=== PATIENT | female | born 1955 | race Caucasian/White ===

== ENCOUNTER 2018-10-04 12:16 | Inpatient (IN) | payer MEDICAID ==
[~2018-10-04] VITALS: Ht 180.3 cm; Wt 97.1 kg
[2018-10-04 12:23] VITALS: BP 154/57
[2018-10-04] MEDS ORDERED: LISI-420 PO (12:28)
[2018-10-04] MEDS ORDERED: AMLO10TA PO (12:28)
[2018-10-04] MEDS ORDERED: ASPI81CT89 PO (12:28)
[2018-10-04 13:18] LABS: BASOPHILS % (AUTO) 0.4 % (0.0-2.0); EOSINOPHILS # (AUTO) 0.1 K/uL (0-0.4); EOSINOPHILS % (AUTO) 1.2 % (0.0-4.0); HEMATOCRIT 34.1 % (36-48); LYMPHOCYTES # (AUTO) 2.3 K/uL (2.5-16.5); LYMPHOCYTES % (AUTO) 31.6 % (20.5-51.1); MEAN CORPUSCULAR HEMOGLOBIN 30 pg (27-31); MEAN CORPUSCULAR HGB CONC 32 g/dL (33-37); MEAN CORPUSCULAR VOLUME 91.7 fL (80-94); MONOCYTES # (AUTO) 0.5 K/uL (0.8-1.0); MONOCYTES % (AUTO) 6.7 % (1.7-9.3); NEUTROPHILS # (AUTO) 4.3 K/uL (1.8-7.7); NEUTROPHILS % (AUTO) 60.1 % (42.2-75.2); PLATELET COUNT (AUTO) 195 K/uL (140-450); RED BLOOD CELL COUNT(AUTO) 3.72 MIL/uL (4.20-5.40); RED CELL DISTRIBUTION WIDTH 14.2 % (11.6-13.7); WHITE BLOOD COUNT (AUTO) 7.2 K/uL (4.8-10.8)
[2018-10-04 13:25] LABS: ANION GAP 8.5 (8-16); CARBON DIOXIDE 29.4 mmol/L (21-32); CREATININE 0.9 mg/dL (0.6-1.3); POTASSIUM 4.9 mmol/L (3.5-5.1)
[2018-10-04 13:31] LABS: ALBUMIN 3.4 g/dL (3.4-5.0); TOTAL BILIRUBIN 0.3 mg/dL (0.0-1.0)
[2018-10-04 13:36] LABS: PROTHROMBIN TIME 9.9 secs (10.8-13.4)
[2018-10-04 13:38] LABS: FREE T4 (FREE THYROXINE) 1.03 ng/dL (0.76-1.46); MAGNESIUM 2.3 mg/dL (1.8-2.4)
[2018-10-04] MEDS ORDERED: ACETAMINOPHEN 325 MG TAB PO PRN (14:15)
[2018-10-04] MEDS ORDERED: ONDANSETRON 4 MG/2 ML VIAL IVP PRN (14:15)
[2018-10-04] MEDS ORDERED: DEXTROSE 50% 50 ML SYR IVP PRN (15:15)
[2018-10-04] MEDS ORDERED: INSULIN LISPRO SLIDING SCALE 100 UNITS/ML VIAL SUBQ PRN (15:15)
[2018-10-04] MEDS ORDERED: NITROGLYCERIN 0.4 MG TAB SL PRN (15:15)
[2018-10-04] MEDS ORDERED: NEOMYCIN/POLYMYXIN/BACITRACIN 0.9 GM/1 PKT TP ONE (15:26)
[2018-10-04 15:40] LABS: PHOSPHORUS 4.2 mg/dL (2.5-4.9)
[2018-10-04 15:44] LABS: BILIRUBIN,URINE NEGATIVE (NEGATIVE); BLOOD, URINE NEGATIVE (NEGATIVE); COLOR,URINE YELLOW (YELLOW); LEUKOCYTE ESTERASE ,URINE 2+ (NEGATIVE); NITRITE, URINE NEGATIVE (NEGATIVE); UGLUCOSE NEGATIVE (NEGATIVE)
[2018-10-04 15:45] LABS: APPEARANCE,URINE SLIGHTLY HAZY (CLEAR)
[2018-10-04 15:52] LABS: RBC,URINE NONE SEEN /HPF (0-5)
[2018-10-04 16:00] VITALS: BP 154/81
[2018-10-04] MEDS ORDERED: METF850T PO (16:03)
[2018-10-04] MEDS: NACL 0.9% 1,000 ML IV SCH (17:33)
[2018-10-04] MEDS: BLOOD GLUCOSE MONITORING 1 DEV DEV FS SCH ×2 (17:33→20:52)
[2018-10-04] MEDS ORDERED: metFORMIN 850 MG TAB PO SCH (18:00)
[2018-10-04 20:00] VITALS: BP 145/68
[2018-10-04] MEDS: ATORVASTATIN 20 MG TAB PO SCH (21:42)
[2018-10-04] MEDS: METOPROLOL 25 MG TAB PO SCH (21:43)
[2018-10-04 22:38] LABS: BARBITURATE, URINE NEGATIVE ng/ml (NEG <=200); BENZODIAZEPINE, URINE NEGATIVE ng/mL (NEG <=200); CANNABINOID, URINE NEGATIVE ng/mL (NEG <=50); COCAINE, URINE NEGATIVE ng/mL (NEG <=300); OPIATE, URINE NEGATIVE ng/mL (NEG <=2000); PHENCYCLIDINE SCREEN,URINE NEGATIVE ng/mL (NEG <=25)
[2018-10-05] VITALS: BP 127/60
[2018-10-05 04:00] VITALS: BP 136/70
[2018-10-05] MEDS: BLOOD GLUCOSE MONITORING 1 DEV DEV FS SCH ×4 (06:47→20:25)
[2018-10-05 08:00] VITALS: BP 144/57
[2018-10-05] MEDS: amLODIPine 5 MG TAB PO SCH (08:21)
[2018-10-05] MEDS: METOPROLOL 25 MG TAB PO SCH ×2 (08:21→20:17)
[2018-10-05] MEDS: ASPIRIN 81 MG TAB.CHEW PO SCH (08:21)
[2018-10-05] MEDS: LISINOPRIL 20 MG TAB PO SCH (08:21)
[2018-10-05] MEDS: metFORMIN 850 MG TAB PO SCH ×2 (08:34→16:34)
[2018-10-05] MEDS ORDERED: LISINOPRIL 5 MG TAB PO SCH (09:00)
[2018-10-05] MEDS ORDERED: ASPIRIN 81 MG TAB.CHEW PO SCH (09:00)
[2018-10-05] MEDS: NACL 0.9% 1,000 ML IV SCH ×2 (10:11→15:00)
[2018-10-05 12:00] VITALS: BP 146/55
[2018-10-05 12:55] LABS: BASOPHILS % (AUTO) 0.3 % (0.0-2.0); EOSINOPHILS # (AUTO) 0.1 K/uL (0-0.4); EOSINOPHILS % (AUTO) 1.6 % (0.0-4.0); HEMATOCRIT 32.8 % (36-48); HEMOGLOBIN 10.6 g/dL (12.0-16.0); LYMPHOCYTES # (AUTO) 2.3 K/uL (2.5-16.5); LYMPHOCYTES % (AUTO) 37.4 % (20.5-51.1); MEAN CORPUSCULAR HEMOGLOBIN 30 pg (27-31); MEAN CORPUSCULAR HGB CONC 33 g/dL (33-37); MEAN CORPUSCULAR VOLUME 91.8 fL (80-94); MONOCYTES # (AUTO) 0.4 K/uL (0.8-1.0); MONOCYTES % (AUTO) 6.5 % (1.7-9.3); NEUTROPHILS # (AUTO) 3.3 K/uL (1.8-7.7); NEUTROPHILS % (AUTO) 54.2 % (42.2-75.2); PLATELET COUNT (AUTO) 186 K/uL (140-450); RED BLOOD CELL COUNT(AUTO) 3.57 MIL/uL (4.20-5.40); RED CELL DISTRIBUTION WIDTH 13.9 % (11.6-13.7)
[2018-10-05 13:02] LABS: CHOL/HDL RATIO 3.5 (1-4.5)
[2018-10-05 13:09] LABS: MAGNESIUM 2.1 mg/dL (1.8-2.4); PHOSPHORUS 3.8 mg/dL (2.5-4.9)
[2018-10-05 13:11] LABS: ANION GAP 12.2 (8-16); CARBON DIOXIDE 26.4 mmol/L (21-32); CREATININE 0.8 mg/dL (0.6-1.3); POTASSIUM 4.6 mmol/L (3.5-5.1)
[2018-10-05 16:00] VITALS: BP 134/52
[2018-10-05 20:00] VITALS: BP 125/62
[2018-10-05] MEDS ORDERED: cefTRIAXone 1,000 MG VIAL ONE (20:12)
[2018-10-05] MEDS: ATORVASTATIN 20 MG TAB PO SCH (20:17)
[2018-10-06] VITALS: BP 130/50
[2018-10-06 04:00] VITALS: BP 149/56
[2018-10-06] MEDS: BLOOD GLUCOSE MONITORING 1 DEV DEV FS SCH (05:54)
[2018-10-06 07:05] LABS: BASOPHILS % (AUTO) 0.4 % (0.0-2.0); EOSINOPHILS # (AUTO) 0.2 K/uL (0-0.4); EOSINOPHILS % (AUTO) 2.4 % (0.0-4.0); HEMATOCRIT 33.8 % (36-48); HEMOGLOBIN 10.8 g/dL (12.0-16.0); LYMPHOCYTES % (AUTO) 41.4 % (20.5-51.1); MEAN CORPUSCULAR HEMOGLOBIN 29 pg (27-31); MEAN CORPUSCULAR HGB CONC 32 g/dL (33-37); MEAN CORPUSCULAR VOLUME 91.8 fL (80-94); MONOCYTES # (AUTO) 0.4 K/uL (0.8-1.0); MONOCYTES % (AUTO) 6.1 % (1.7-9.3); NEUTROPHILS # (AUTO) 3.6 K/uL (1.8-7.7); NEUTROPHILS % (AUTO) 49.7 % (42.2-75.2); PLATELET COUNT (AUTO) 195 K/uL (140-450); RED BLOOD CELL COUNT(AUTO) 3.69 MIL/uL (4.20-5.40); RED CELL DISTRIBUTION WIDTH 13.6 % (11.6-13.7); WHITE BLOOD COUNT (AUTO) 7.2 K/uL (4.8-10.8)
[2018-10-06 07:13] LABS: ANION GAP 10.9 (8-16); CARBON DIOXIDE 26.9 mmol/L (21-32); CREATININE 0.8 mg/dL (0.6-1.3); POTASSIUM 4.8 mmol/L (3.5-5.1)
[2018-10-06 07:20] LABS: MAGNESIUM 2.1 mg/dL (1.8-2.4); PHOSPHORUS 3.5 mg/dL (2.5-4.9)
[2018-10-06 08:00] VITALS: BP 125/64
[2018-10-06] MEDS: METOPROLOL 25 MG TAB PO SCH (09:08)
[2018-10-06] MEDS: amLODIPine 5 MG TAB PO SCH (09:08)
[2018-10-06] MEDS: metFORMIN 850 MG TAB PO SCH (09:08)
[2018-10-06] MEDS: LISINOPRIL 20 MG TAB PO SCH (09:08)
[2018-10-06] MEDS: ASPIRIN 81 MG TAB.CHEW PO SCH (09:09)
[2018-10-06] MEDS: NACL 0.9% 1,000 ML IV SCH (10:45)
== END 2018-10-06 11:50 | disposition home or self-care (01) | DRG 198 ==
LOC: MED 12:16 → MTU 14:19
PROVIDERS: ADMIT General Practice; ATTEND General Practice
DX: I20.0 Unstable angina (principal); N17.0 Acute kidney failure with tubular necrosis; E11.40 Type 2 diabetes mellitus with diabetic neuropathy, unspecified; E11.65 Type 2 diabetes mellitus with hyperglycemia; S52.502A Unspecified fracture of the lower end of left radius, initial encounter for closed fracture; D64.9 Anemia, unspecified; I27.21 Secondary pulmonary arterial hypertension; I07.1 Rheumatic tricuspid insufficiency; I11.9 Hypertensive heart disease without heart failure; S52.612A Displaced fracture of left ulna styloid process, initial encounter for closed fracture; E78.5 Hyperlipidemia, unspecified; W18.39XA Other fall on same level, initial encounter; Z87.01 Personal history of pneumonia (recurrent); Z79.82 Long term (current) use of aspirin; Z79.899 Other long term (current) drug therapy; Z90.49 Acquired absence of other specified parts of digestive tract; Z98.891 History of uterine scar from previous surgery; Z79.84 Long term (current) use of oral hypoglycemic drugs; Z82.49 Family history of ischemic heart disease and other diseases of the circulatory system; Y93.89 Activity, other specified; Y92.89 Other specified places as the place of occurrence of the external cause; Y99.8 Other external cause status
CPT/HCPCS: 36415; 71045; 73060; 73090; 80048; 80053; 80305; 81001; 82150; 82948; 83036; 83605; 83690; 83735; 83880; 84100; 84439; 84443; 84479; 84484; 85025; 85379; 85610; 85730; 87081; 87086; 93005; 93925; 93970; J0696; J1644; J1815; J7030; J7060; Q0092

== ENCOUNTER 2019-02-18 13:04 | Emergency (ER) | payer MEDICAID ==
[~2019-02-18] VITALS: Ht 165.1 cm; Wt 99.3 kg
[~2019-02-18 13:04] MED LIST: AMLO10TA PO; ASPI-1718 PO; LISI-420 PO; METF850T PO
[2019-02-18 13:10] VITALS: BP 167/69
--- NOTE | 2019-02-18 14:22 | NUR ---
Patient ambulated to chair E with family. RN evaluating patient.
--- NOTE | 2019-02-18 14:30 | NUR ---
PATIENT IS A 63 Y/O FEMALE WHO PRESENTS TO THE ED C/O COUGH. PT STATES THAT IT STARTED YESTERDAY. PT TOOK TYLENOL AT 0400 TODAY. PT REPORTS 10/10 ACHING CHEST WALL PAIN WITH COUGH. PT DENIES CP, SOB, N/V/D. PT AWAKE AND ALERT, RR EVEN/UNLABORED. PT REPOSITIONED FOR COMFORT, BED IN LOWEST POSITION. ER PROVIDER NOTIFIED. WILL CONTINUE TO MONITOR. PMH--DM, L WRIST INJURY NKA
[2019-02-18] MEDS ORDERED: KETOROLAC 30 MG/ML VIAL IM ONE (15:10)
[2019-02-18 15:28] VITALS: BP 172/72
--- NOTE | 2019-02-18 15:28 | NUR ---
Patient discharged with v/s stable. Written and verbal after care instructions given and explained. Patient alert, oriented and verbalized understanding of instructions. Ambulatory with steady gait. All questions addressed prior to discharge. ID band removed. Patient advised to follow up with PMD. Rx of FLONASE 50MCG AND DIABETIC TUSSIN DM given. Patient educated on indication of medication including possible reaction and side effects. Opportunity to ask questions provided and answered.
== END 2019-02-18 15:28 | disposition home or self-care (01) ==
LOC: MED 13:04
DX: J06.9 Acute upper respiratory infection, unspecified (principal); R94.31 Abnormal electrocardiogram [ECG] [EKG]; E11.9 Type 2 diabetes mellitus without complications; I10 Essential (primary) hypertension; Z79.82 Long term (current) use of aspirin; Z79.84 Long term (current) use of oral hypoglycemic drugs; Z79.899 Other long term (current) drug therapy
CPT/HCPCS: 93005; 96372; 99283; J1885

== ENCOUNTER 2020-01-24 20:53 | Inpatient (IN) | payer MEDICAID, SELFPAY ==
[~2020-01-24] VITALS: Ht 160 cm; Wt 102.5 kg
[~2020-01-24 20:53] MED LIST changes: -ASPI-1718 PO; +ASPI-1822 PO
--- NOTE | 2020-01-24 20:55 | NUR ---
PT TAKEN TO BED 10
[2020-01-24 21:00] VITALS: BP 144/42
--- NOTE | 2020-01-24 21:05 | NUR ---
PT 64 Y/O FEMALE BIB FAMILY MEMEBER FOR C/O COUGH, SOB, AND SUBJECTIVE FEVER X 15 DAYS. CURRENT TEMP 98.5. PT AAO X 3, PERSON, TIME, SITUATION. PT RESPONSIVE TO TOUCH. PER PT SHE LIVES WITH FAMILY MEMBER AT HOME WHO HAS TESTED POSITIVE FOR VILLALOBOS VIRUS X 2 WEEKS AGO. PT RESPIRATIONS ARE SHALLOW. PT ON 5L NC O2SAT @ 97%. CRACKLES NOTED IN UPPER BILAT LOBES. NON PRODUCTIVE COUGH NOTED. PT HAS 8/10 INTERMITTENT CHEST PAIN WHEN COUGHING. DENIES N/V/D. HAS C/O CHILLS. PT ON MONITOR. VSS. MEDHX: DM TYPE II ALLERGIES: NKA.
--- NOTE | 2020-01-24 21:13 | NUR ---
IV PLACED IN R AC 20 G.
--- NOTE | 2020-01-24 21:32 | NUR ---
ACCUCHECK: 146. YASIR MADE AWARE.
[2020-01-24 21:33] LABS: BASOPHILS % (AUTO) 0.3 % (0.0-2.0); EOSINOPHILS # (AUTO) 0.1 K/uL (0-0.4); EOSINOPHILS % (AUTO) 0.6 % (0.0-4.0); HEMATOCRIT 35.5 % (36-48); HEMOGLOBIN 11.4 g/dL (12.0-16.0); LYMPHOCYTES # (AUTO) 1.5 K/uL (2.5-16.5); LYMPHOCYTES % (AUTO) 15.2 % (20.5-51.1); MEAN CORPUSCULAR HEMOGLOBIN 28 pg (27-31); MEAN CORPUSCULAR HGB CONC 32 g/dL (33-37); MONOCYTES # (AUTO) 0.9 K/uL (0.8-1.0); MONOCYTES % (AUTO) 8.9 % (1.7-9.3); NEUTROPHILS # (AUTO) 7.4 K/uL (1.8-7.7); PLATELET COUNT (AUTO) 353 K/uL (140-450); RED BLOOD CELL COUNT(AUTO) 4.03 MIL/uL (4.20-5.40); RED CELL DISTRIBUTION WIDTH 16.6 % (11.6-13.7); WHITE BLOOD COUNT (AUTO) 9.8 K/uL (4.8-10.8)
--- NOTE | 2020-01-24 21:37 | NUR ---
RT AT BEDSIDE.
--- NOTE | 2020-01-24 21:45 | NUR ---
NOVEL VILLALOBOS VIRUS, RSV, AND FLU SWAB COLLECTED AND GIVEN TO PYTHON ENGINEER.
[2020-01-24 21:49] LABS: ALBUMIN 2.2 g/dL (3.4-5.0); ANION GAP 11.9 (8-16); CARBON DIOXIDE 26.5 mmol/L (21-32); CREATININE 1.6 mg/dL (0.6-1.3); POTASSIUM 4.4 mmol/L (3.5-5.1); TOTAL BILIRUBIN 0.5 mg/dL (0.0-1.0)
--- NOTE | 2020-01-24 22:05 | NUR ---
lab called with critical values: TROPONIN: 0.549 BUN- 59 ERMD MADE AWARE
--- NOTE | 2020-01-24 22:10 | NUR ---
PT ABLE TO AMBULATE TO BEDSIDE COMMODE WITH ASSISTANCE. UA COLLECTED. UA HANDED TO GEOGRAPHIC AREA INTELLIGENCE OFFICER.
[2020-01-24 22:17] LABS: APPEARANCE,URINE CLEAR (CLEAR); BILIRUBIN,URINE NEGATIVE (NEGATIVE); BLOOD, URINE 1+ (NEGATIVE); COLOR,URINE YELLOW (YELLOW); LEUKOCYTE ESTERASE ,URINE 2+ (NEGATIVE); NITRITE, URINE POSITIVE (NEGATIVE); PH,URINE 5.5 (5.0-9.0); UGLUCOSE NEGATIVE (NEGATIVE)
--- NOTE | 2020-01-24 22:21 | NUR ---
XRAY AT BEDSIDE.
--- NOTE | 2020-01-24 22:25 | NUR ---
PT AAO X4. PT RESPONSIVE TO VERBAL STIMULI. PT ADMITS TO FEELING DIZZY AND WEAK BUT DENIES PAIN 0/10. O2 SAT @ 96% ON 5L N/C. PT ON MONITOR. VSS.
[2020-01-24 22:30] LABS: RSV NEGATIVE (NEGATIVE)
[2020-01-24] MEDS ORDERED: NACL 0.9% 1,000 ML IV ONE (22:30)
[2020-01-24] MEDS ORDERED: ASPIRIN 325 MG TAB PO ONE (22:30)
[2020-01-24] MEDS ORDERED: AZITHROMYCIN 500 MG in DEXTROSE 5% 250 ML IV ONE (22:30)
[2020-01-24] MEDS ORDERED: AZITHROMYCIN 500 MG INJ VIAL IV ONE (22:33)
[2020-01-24] MEDS ORDERED: cefTRIAXone 1,000 MG VIAL ONE (22:34)
[2020-01-24] MEDS ORDERED: OSELTAMIVIR PHOSPHATE 75 MG CAP PO ONE (22:35)
[2020-01-24] MEDS ORDERED: NACL 0.9% 1,000 ML IV SCH (22:37)
[2020-01-24] MEDS ORDERED: ACETAMINOPHEN 325 MG TAB PO PRN (22:40)
[2020-01-24] MEDS ORDERED: HYDROcodone/APAP 5/325 MG 1 TAB TAB PO PRN (22:40)
[2020-01-24] MEDS ORDERED: MORPHINE SULFATE 2 MG/ML SYR IVP PRN (22:40)
[2020-01-24] MEDS ORDERED: ONDANSETRON 4 MG/2 ML VIAL IM/IVP PRN (22:40)
--- NOTE | 2020-01-24 22:40 | NUR ---
ROCEPHIN 1 G RUNNING AT 100 MLS/HR. IV SITE IS PATENT. NO C/O PAIN OR SWELLING AT SITE.
[2020-01-24 22:47] LABS: RBC,URINE 11-20 (MOD) /HPF (0-5); WBC,URINE TOO MANY TO COUNT /HPF (0-5)
[2020-01-24 22:48] LABS: HYALINE CASTS, URINE 0-10 /LPF (None Seen)
--- NOTE | 2020-01-24 22:55 | NUR ---
ASA 325MG AND TAMIFLU 75 MG GIVEN PO. PT ABLE TO SWALLOW MEDICATION WITHOUT DIFFICULTY.
[2020-01-24] MEDS ORDERED: METO50TE2 PO (23:04)
[2020-01-24] MEDS ORDERED: SIMV20TA1 PO (23:04)
[2020-01-24] MEDS ORDERED: LISI30TA6 PO (23:04)
[2020-01-24] MEDS ORDERED: METF1000 PO (23:04)
[2020-01-24 23:06] LABS: MAGNESIUM 2.2 mg/dL (1.8-2.4); PHOSPHORUS 2.9 mg/dL (2.5-4.9); THYROID STIMULATING HORMONE 3.02 uIU/mL (0.34-3.74)
--- NOTE | 2020-01-24 23:28 | NUR ---
AZITHROMYCIN 500MG GIVEN @ 250ML/HR. IV SITE IS PATENT NO REDNESS OR SWELLING NOTED AT SITE. 0/10 C/O PAIN AT SITE.
--- NOTE | 2020-01-24 23:40 | NUR ---
PT AAO X4. RESPONSIVE TO VERBAL STIMULI. PT DENIES PAIN. PT O2 SAT @ 96% ON 4L/MIN NC. MED REC DONE. SKIN INTACT. PT VSS.
--- NOTE | 2020-01-24 23:50 | NUR ---
RECEIVED BEDSIDE REPORT FROM ISADORA HIGGINS RN. PT CAME IN [facility] AND AMBULATED TO BED WITH ASSIST. PT REQUEST TO USE BEDSIDE COMMODE ASSIST PT. PT IS TONGAN SPEAKING ONLY. PT ON 4L O2 VIA NC SAT LOW 92% WILL F/U WITH . RESPIRATIONS ARE DIMINISH AT BASE. PT STATES C/C COUGH AND FEVER AND SOB X2 WEEKS. LIVED WITH DAUGHTER AND DAUGHTER WAS POSITIVE FOR COVID-19. DX:PNA AND R/O COVID19. IV ON RAC 20G CURRENTLY IV ABX INFUSING. SKIN IS INTACT. ONLY HX PER PT: HTN AND DM2. PT RAHEL LEGS WITH PITTING EDEMA +2. MRSA SWAB OBTAINED. ORIENTED PT TO CALL LIGHT, STAFF, AND ROOM. EDUCATED PT TO KEEP MASK ON AND COVER WHEN COUGHING TO COUGH INTO ELBOW PT VERBALIZED UNDERSTANDING. ALL NEEDS MET. CALL LIGHT IS WITHIN REACH. WILL CONTINUE TO MONITOR.
--- NOTE | 2020-01-24 23:50 | NUR ---
Patient will be admitted to care of [facility]. Admited to TELE. Will go to room 114. Belongings list completed. Report to RAJENDRA SOSA.
[2020-01-25] VITALS (9 sets, daily range): BP systolic 120–178; BP diastolic 45–82
[2020-01-25] MEDS ORDERED: DEXTROSE 50% 50 ML SYR IVP PRN (01:00)
[2020-01-25] MEDS ORDERED: DEXT 5% /NACL 0.9% 1,000 ML IV SCH (01:40)
[2020-01-25] MEDS ORDERED: hydrALAZINE 20 MG/ML VIAL IVP PRN (01:45)
[2020-01-25] MEDS ORDERED: AZITHROMYCIN 500 MG in DEXTROSE 5% 250 ML IV SCH (01:55)
--- NOTE | 2020-01-25 02:20 | NUR ---
MADE ROUNDS. PT IS SLEEPING COMFORTABLY IN BED WITH CHEST RISE AND FALL. AST 96% ON 4L VIA NC. CALL LIGHT IS WITHIN REACH.
--- NOTE | 2020-01-25 02:50 | NUR ---
FOUND PT ON 4L NC. ABG WAS PERFORMED AT THIS TIME. PT IS RESTING AND IN NO DISTRESS.
[2020-01-25 03:24] LABS: BASOPHILS % (AUTO) 0.2 % (0.0-2.0); EOSINOPHILS % (AUTO) 0.6 % (0.0-4.0); HEMATOCRIT 32.7 % (36-48); HEMOGLOBIN 10.7 g/dL (12.0-16.0); LYMPHOCYTES # (AUTO) 1.3 K/uL (2.5-16.5); LYMPHOCYTES % (AUTO) 16.2 % (20.5-51.1); MEAN CORPUSCULAR HEMOGLOBIN 29 pg (27-31); MEAN CORPUSCULAR HGB CONC 33 g/dL (33-37); MEAN CORPUSCULAR VOLUME 87.7 fL (80-94); MONOCYTES # (AUTO) 0.8 K/uL (0.8-1.0); MONOCYTES % (AUTO) 9.7 % (1.7-9.3); NEUTROPHILS % (AUTO) 73.3 % (42.2-75.2); PLATELET COUNT (AUTO) 310 K/uL (140-450); RED BLOOD CELL COUNT(AUTO) 3.73 MIL/uL (4.20-5.40); RED CELL DISTRIBUTION WIDTH 16.5 % (11.6-13.7); WHITE BLOOD COUNT (AUTO) 8.2 K/uL (4.8-10.8)
[2020-01-25 03:59] LABS: ANION GAP 10.3 (8-16); CARBON DIOXIDE 27.1 mmol/L (21-32); CREATININE 1.5 mg/dL (0.6-1.3); POTASSIUM 4.4 mmol/L (3.5-5.1)
--- NOTE | 2020-01-25 04:03 | NUR ---
VITAL SIGNS ARE WITHIN NORMAL LIMITS. ASSISTED PT TO BEDSIDE COMMODE. PT TOLERATED WELL. ALL SAFETY MEASURES ARE IN PLACE. CALL LIGHT IS WITHIN REACH.
[2020-01-25 04:05] LABS: CHOL/HDL RATIO 3.4 (1-4.5)
[2020-01-25] MEDS ORDERED: hePARIN / DEXT 5% PREMIX 250 ML IV SCH ×2 (04:45→05:55)
[2020-01-25] MEDS ORDERED: HEPARIN PER PHARMACY MC PRN (04:45)
--- NOTE | 2020-01-25 06:29 | NUR ---
HEPARIN BOLUS ADMINISTERED 4400UNIT IVP AND HEPARIN DRIP STARTED AT 880UNITS/H. PTT 28.1 PLT 310. ORDERED PTT FOR 1230. ALL SAFETY MEASURES ARE IN PLACE. CALL LIGHT IS WITHIN REACH.
[2020-01-25] MEDS: BLOOD GLUCOSE MONITORING 1 DEV DEV FS SCH ×4 (06:34→20:46)
--- NOTE | 2020-01-25 07:20 | NUR ---
GAVE BEDSIDE REPORT TO DAY RN. PT ENDORSED IN STABLE CONDITION.
--- NOTE | 2020-01-25 07:25 | NUR ---
RECEIVED BEDSIDE REPORT FROM NIGHTSHIFT NURSE. PT RESTING IN BED. ABLE TO MAKE NEEDS KNOWN. RESPIRATIONS EVEN AND UNLABORED WITH NO SOB OR RESPIRATORY DISTRESS. SKIN WARM AND DRY TO TOUCH. IV SITE IN RAC 20G AND RIGHT WRIST 24G IS CLEAN, DRY, AND INTACT. SAFETY MEASURES IN PLACE. WILL CONTINUE TO MONITOR
--- NOTE | 2020-01-25 08:24 | NUR ---
PATIENT HAS BEEN SCREENED AND CATEGORIZED MODERATE NUTRITION RISK. PATIENT WILL BE SEEN WITHIN 3-5 DAYS OF ADMISSION. 01/27/20 01/29/[address]
[2020-01-25 08:38] LABS: BARBITURATE, URINE NEGATIVE ng/ml (NEG <=200); BENZODIAZEPINE, URINE NEGATIVE ng/mL (NEG <=200); CANNABINOID, URINE NEGATIVE ng/mL (NEG <=50); COCAINE, URINE NEGATIVE ng/mL (NEG <=300); OPIATE, URINE NEGATIVE ng/mL (NEG <=2000); PHENCYCLIDINE SCREEN,URINE NEGATIVE ng/mL (NEG <=25)
[2020-01-25] MEDS: ZINC SULF 220 MG CAP PO SCH (08:42)
[2020-01-25] MEDS: ASCORBIC ACID 500 MG TAB PO SCH (08:43)
[2020-01-25] MEDS: HYDROXYCHLOROQUINE 200 MG TAB PO SCH ×2 (08:44→20:25)
[2020-01-25] MEDS: OSELTAMIVIR PHOSPHATE 75 MG CAP PO SCH ×2 (08:44→20:25)
[2020-01-25] MEDS: METOPROLOL SUCCINATE 50 MG TABER PO SCH (08:45)
[2020-01-25] MEDS ORDERED: ZINC SULF 220 MG CAP PO SCH (09:00)
[2020-01-25] MEDS ORDERED: LISINOPRIL 10 MG TAB PO SCH (09:00)
--- NOTE | 2020-01-25 10:32 | NUR ---
Janitorial Account Manager Note: Basic Screen: Yes High Risk DC Screen [place]: MARÍA TINEO Home Relationship: GRANDDAUGHTER Pre-Admission Living Arrangements: Lives with Other Prior ADL Independent Current Home Health Name/Tel: N/A Current DME/02 Name/Tel: N/A Current Hospice Name/Tel: N/A Current Dialysis Name/Tel: N/A Healthcare Decision Maker: Patient Advance Directive No Physician Orders for Life Sustaining Treatment Form No Patient/Family Have Educational Needs No Discipline: Case Mgt/Social Svcs Tentative Discharge Plan/Destination: No Needs Identified Will require assistance post discharge: No Referred to [employer]: No Tentative Discharge Plan Summary: Patient is a 64-year-old female admitted for pneumonia and influenza. Patient has PMHX of diabetes and hypertension. Patient was admitted from home where she lives iwth her two daughters, son-in-law, and grandchildren. SW contacted María Tineo [phone] to verify demogaphics. Per María, patient has no mental health history and no substance abuse history. Tentative discharge plan is for patient to return home. No further needs identified. Signature: YVONNE Mackenzie Date: Jan 25, 2020 Time: 10:32
--- NOTE | 2020-01-25 11:03 | NUR ---
DC PLANNIN YRS OLD FEMALE PATIENT WAS ADMITTED FROM HOME WITH A DX OF PNA ,INFLUENZA A+ AND R/O COVID. PATIENT HAS A HX OF DM, HTN, AND HLD. PER ED REPORT PT HAD A CONTACT WITH COVID + OF FAMILY MEMBER . CXRAY CARDIOMEGALY WITH DIFFUSE BILATERAL EDEMA/INFILTRATES. COVID-19, BLOOD AND URNINE CULTURE PENDING. ADMINISTERED IV AZITHROMYCIN, ROCEPHIN, TAMIFLU . RT PROTOCOL WITH MDI ALBUTEROL PRN FOR SOB. CONSULTED WITH PULMO, ID AND CARDIO .DC PLAN PER CONSULTS RECOMMENDATIONS. CM TO FOLLOW Addendum: 01/26/20 at 1134 by Lidya Salgado CM TRANSFERRED TO ICU AT 1120 01/25/2020. VS STABLE. ON ROOM AIR. DOWNGRADED TO TELE AT 0412. ON PLAQUENIL, TAMIFLU, VANCOMYCIN, ROCEPHIN AND AZITHROMYCIN. CURRENT LABS INCLUDE WBC 10.9, H/H 10.8/33.3, NA/K 134/4.7, BUN/CREA 34/1.2 AND C REACTIVE PROTEIN 16.8. POSITIVE FOR INF A AND B. COVID 19 STILL PENDING. MRSA NARES AND URINE C/S PENDING. PRELIMINARY CS NO GROWTH AFTER 24 HOURS. DC PLAN PENDING ON PATIENT'S RESPONSE TO TREATMENT. Addendum: 01/27/20 at 0845 by Lidya Salgado CM STILL IN ICU BUT TELE STATUS. STILL ON NONREBREATHER MASK AT 15LPM. ON AZITHROMYCIN, ROCEPHIN, VANCOMYCIN AND PLAQUENIL. CURRENT LABS INCLUDE WBC 14.3, H/H 10.5/32.8, NA/K 138/5.0, BUN/CREA 33/1.2, C REACTIVE PROTEIN 25.3 AND ALB 1.7. SEEN BY ID WITH RECOMMENDATIONS TO CONTINUE CURRENT THERAPY. SEEN BY PULMO-IF RESP STATUS WORSENS MAY NEED MECHANICAL VENTILATION AND OK TO DC JACOBOO FROM PULM STANDPOINT. SEEN BY CARDIO-CONT TO TREAT TYPE II NSTEMI, EVENTUAL ECHO. (+) COVID. DC PLAN PENDING ON PATIENT'S RESPONSE TO TREATMENT. Addendum: 01/30/20 at 0909 by Lidya Salgado STILL IN ICU, ON TELE STATUS. ON NON REBREATHER MASK AT 15 LPM. CURRENT LABS INCLUDE WBC 9.1, H/H 9.3/29.4, NA/K 134/5.0, BUN/CREA 44/1.4, ALB 1.4. URINE C/S SHOWED E COLI. BLOOD C/S NO GROWTH AFTER 48 HOURS. ON LASIX IV, ROCEPHIN. COVID 19 (+). SEEN BY ID - WITH RECOMMENDATIONS TO CONTINUE FURTHER THERAPY WITH CEFTRIAXONE FOR E COLI URINE. NADER BY PULMO. RECENT CXR SHOWED THERE HAS BEEN INTERVAL PROGRESSION OF BILATERAL PULMONARY EDEMA/INFILTRATES/ARDS. DC PLAN PENDING ON PATIENT'S RESPONSE TO TREATMENT. Addendum: 01/31/20 at 0906 by Lidya Salgado CM STILL IN ICU, TELE STATUS. ON 02 AT 15 LPM/NRM. CURRENT LABS INCLUDE WBC 7.4, H/H 9.9/31.7, NA/K 138/5.1, BUN/CREA 42/1.1 AND ALB 1.5. ON HYDROCHLOROTHIAZIDE, LASIX IV AND ROCEPHIN. CARDIO, ID AND PULMO CONSULTS IN PLACE. DC PLAN PENDING ON PATIENT'S RESPONSE TO TREATMENT. Addendum: 02/01/20 at 0910 by Lidya Salgado CM STILL IN ICU, ON TELE STATUS. ON NON REBREATHER MASK AT 15 LPM. CURRENT LABS INCLUDE WBC 7.6, H/H 9.5/30.0, NA/K 139/5.1, BUN/CREA 35/1.1 AND ALB 1.5. SEEN BY ID - RECOMMENDS TO CONTINUE CEFTRIAXONE FOR NOW. SEEN BY PULMO WITH RECOMMENDATIONS TO TITRATE FIO2 TO KEEP SAT>90%. LATEST CXR SHOWED SEVERE BILATERAL AIRSPACE LIKELY REPRESENTING SEVERE MULTIFOCAL PNA VS PULMONARY EDEMA/ARDS. DC PLAN PENDING ON PATIENT'S RESPONSE TO TREATMENT. Addendum: 02/02/20 at 0854 by Lidya Salgado STILL IN ICU, TELE STATUS. ON O2 NON REBREATHER MASK AT 15 LPM, O2 SAT 98%. CURRENT LABS INCLUDE WBC 7.6, H/H 9.8/31.8, NA/K 140/4.7, BUN/CREA 26/1.1 AND ALB 1.8. SEEN BY ID-CONTINUE TO MONITOR FOR ANY EVIDENCE OF NEW NOSOCOMIAL INFECTION. SEEN BY PULMO - ENCOURAGE SELF PRONING, TITRATE FI02 TO KEEP SAT >90%. PER PRIMARY RN SACRAL PRESSURE ULCER (INTACT BUT RED) NOTED OVERNIGHT, FOAM DRESSING WAS APPLIED. ROCEPHIN WAS DISCONTINUED. STILL ON LASIX IV. DC PLAN PENDING ON PATIENT'S RESPONSE TO TREATMENT. Addendum: 02/04/20 at 1110 by Lidya Salgado CM TRANSFERRED TO [facility] ON 02/03/2020 AT 1530. STILL ON NON REBREATHER MASK AT 15 LPM, O2 SAT 100%. CURRENT LABS WNL. SEEN BY WOUND CARE-DERMATITIS, STARTED ON TRIAMCINOLONE TOPICAL. STILL ON SOLU MEDROL. HEAD CT DONE TODAY TO R/O BLEED - NO ACUTE INTRACRANIAL HEMORRHAGE, MASS EFFECT OT HYDROCEPHALUS. SEEN BY ID-E COLI IN URINE RESOLVED, OFF ANTIBIOTICS. SEEN BY PULMO - TO CONTINUE WEAN O2 AND TO ENCOURAGE SELF PRONING. DC PLAN PENDING ON PATIENT'S RESPONSE TO TREATMENT. Addendum: 02/06/20 at 1127 by Lidya Salgado CM ON O2 AT 5 LPM/NC, O2 SAT 95%. CURRENT LABS INCLUDE WBC 5.8, H/H 9.9/31.0, NA/K 134/5.8, BUN/CREA 53/1.4 AND ALB 2.3. ON SOLU MEDROL. SEEN BY ID - E COLI URINE RESOLVED. SEEN BY PULMO - WEAN O2, TITRATE FIO2 TO KEEP SAT >90% AND TO CONTINUE IV DIERESIS. DC PLAN PENDING ON PATIENT'S RESPONSE TO TREATMENT. Addendum: 02/08/20 at 1212 by Lidya Salgado CM STILL ON OXYMIZER AT 5 LPM, O2 SAT 98%. ON PREDNISONE AND HYDROCHLOROTHIAZIDE. ID, PULMO AND CARDIO CONSULTS IN PLACE. Addendum: 02/09/20 at 0824 by Lidya Salgado CM RECEIVED AN ORDER FOR HOME O2. CONTACTED MARGARITA STILL [email or web address] AT [phone], NO ANSWER. LEFT MESSAGE. Addendum: 02/09/20 at 0920 by Lidya Salgado CM RECEIVED A CALL BACK FROM MARGARITA STILL [employer], HE STATED SINCE PATIENT IS MEDICAL RESTRICTED, DME'S ARE NOT COVERED AND BENEFITS ONLY COVERS OB AND HOSPITALIZATION. PATIENT WILL HAVE TO PAY $250/MONTH FOR THE CONCENTRATOR, WITH A $250 DEPOSIT AND $75 FOR THE TANK AND $75 DEPOSITS. ALL DEPOSITS ARE REFUNDABLE. CONTACTED HONG BASILIO OF [facility] AT [phone], NO ANSWER. LEFT MESSAGE. WILL FOLLOW UP. CONTACTED [employer] REP CYNDI WILKINS AT [phone], NO ANSWER. LEFT MESSAGE. WILL FOLLOW UP. RECEIVED A CALL BACK FROM CYNDI, HE STATED HE IS NOT WITH [employer] ANYMORE AND WITH [facility] NOW. HE STATED TO GO AHEAD AND FAX DEMO'S AND ORDER TO [phone]. DEMO'S AND ORDER SENT. Addendum: 02/09/20 at 1039 by Lidya Salgado CM RECEIVED A CALL BACK FROM HONG BASILOI OF [facility], INFORMED HIM OF THE O2 NEED OF THE PATIENT. HE STATED FOR SEGURA PAY IT WILL $150/MONTH, BUT HE WILL SEE WHAT HE CAN DO TO HELP OUT. REQUESTED TO FAX ORDER AND DEMO TO [phone]. ORDER AND DEMO SENT TO THE PROVIDED FAX NUMBER. CONTACTED [employer] AT [phone], ABLE TO SPEAK TO FAM PERKINS RESPIRATORY HORSEBACK RIDING INSTRUCTOR, INFORMED HER OF THE ORDER. I ALSO MADE HER AWARE THAT PATIENT IS MEDICAL RESTRICTED. SHE STATED TO GO AHEAD AND FAX DEMO AND ORDER TO [phone]. DEMO AND ORDER SENT. CONTACTED [facility] AT [phone], ABLE TO SPEAK TO NICKOLAS. SHE STATED IF INSURANCE IS MEDICAL RESTRICTED, DME IS NOT COVERED AND IT WILL BE SEGURA PAY AND IT WILL BE $200/MO. DEMO AND ORDER SENT TO [phone]. CM WILL FOLLOW UP Addendum: 02/09/20 at 1306 by Lidya Salgado CM CONTACTED HONG STILL [facility] AT [phone], HE STATED TO FOLLOW UP WITH MIREYA [phone]. CONTACTED THE PROVIDED NUMBER, NO ANSWER. LEFT MESSAGE. WILL FOLLOW UP. Addendum: 02/09/20 at 1349 by Lidya Salgado CM RECEIVED A CALL FROM [facility], STATING THAT THEY ARE NOT ABLE TO PROVIDE O2 TO THE PATIENT DUE TO THE INSURANCE. Addendum: 02/09/20 at 1426 by Lidya Salgado CONTACTED [employer] AT [phone], SHE STATED THEY SPOKE TO THE PATIENT'S DAUGHTER AND IS WILLING TO PAY SEGURA. SHE ALSO STATED THAT THEY ARE IN THE PROCESS OF DELIVERING THE O2 AT THE PATIENT'S ADDRESS. SHE ALSO STATED THAT SHE WILL SEND ME AN INTAKE FORM THAT WILL BE NEEDING THE DOCTOR'S SIGNATURE. RECEIVED THE FORM, DR. RODRIGUES SIGNED. FAX TO [phone]. Addendum: 02/09/20 at 1445 by Lidya Salgado CM RECEIVED AN ORDER FOR [facility] FOR SAFETY EVAL. ORDER AND CLINICALS FAXED TO [facility] AT [phone]. CONTACTED JAMES VENEGAS OF [facility], SHE STATED THEY WILL REVIEW REFERRAL AND WILL CALL ME BACK. Addendum: 02/09/20 at 1456 by Lidya Salgado CM CONTACTED PATIENT'S DAUGHTER ROBER TINEO AT [phone] REGARDING O2 ORDER. SHE STATED THAT IT HAS BEEN DELIVERED TO THEIR HOUSE. INFORMED HER THAT THE PATIENT WILL BE DISCHARGING TODAY. SHE STATED THAT HER SISTER WILL BE PICKING UP THEIR MOTHER AND WILL BRING THE PORTABLE O2. SHE STATED "PLEASE LET THE NURSES AND DOCTORS KNOW AND EVERYBODY THERE THAT WE ARE SO GRATEFUL OF ALL THE SERVICES THAT YOU GUYS PROVIDED US." Addendum: 02/10/20 at 1042 by Lidya Salgado CM REFERRAL SENT TO [facility] AND [facility]. WILL FOLLOW UP. Addendum: 02/10/20 at 1159 by Lidya Salgado INTUBATED, SEDATED. ON SOLU MEDROL, PROTONIX IV. CURRENT CXR SHOWED INCREASED PATCHY CONSOLIDATION. ID, PULMO AND CARDIO CONSULTS IN PLACE. DC PLAN PENDING ON PATIENT'S RESPONSE TO TREATMENT. Addendum: 02/10/20 at 1342 by Lidya Salgado CM PER JAMES OF [facility], UNABLE TO ACCEPT PATIENT DUE TO INSURANCE. PER STEPHANIE OF [facility], UNABLE TO ACCEPT PATIENT DUE TO INSURANCE. DR. RODRIGUES MADE AWARE. SHE STATED "IT'S OK. Addendum: 02/10/20 at 1359 by Lidya Salgado CM CONTACTED AREN STILL [facility] AT [phone] REGARDING REFERRAL. REFERRAL SENT TO [phone]. THEY WILL REVIEW AND WILL GIVE ME A CALL BACK. Addendum: 02/10/20 at 9651 by Lidya Salgado CM PER AREN HARRELL OF [facility], UNABLE TO ACCEPT PATIENT DUE TO INSURANCE. Addendum: 02/10/20 at 1439 by Lidya Salgado CM CONTACTED RUDDY MERGED WITH [facility] AT [phone], NO ANSWER. LEFT MESSAGE.
--- NOTE | 2020-01-25 11:15 | NUR ---
ENDORSED BEDSIDE REPORT TO ICU NURSE. PT RESTING IN BED. ABLE TO MAKE NEEDS KNOWN. RESPIRATIONS EVEN AND UNLABORED WITH NO SOB OR RESPIRATORY DISTRESS. SKIN WARM AND DRY TO TOUCH. SAFETY MEASURES IN PLACE. PT IS STABLE
--- NOTE | 2020-01-25 11:20 | NUR ---
RECEIVED PATIENT TRANSFERRED FROM TELEMETRY ROOM 114, BEDSIDE REPORT FROM IAN NORIEGA, PATIENT IS AAOX4, PERRL, ITALIAN SPEAKING ONLY, ABLE TO FOLLOW COMMANDS AND MAKE NEEDS KNOWN, VSS, DENIES PAIN, NO S/S OF DISTRESS, RHONCHI LUNG SOUNDS RAHEL. ON 4L O2 VIA NC, O2 SAT 88%, SR ON PRODUCTION SCHEDULER, DENIES CHEST PAIN, SOFT ABDOMEN WITH ACTIVE BOWEL SOUNDS, CONTINENT WITH B&B'S, SKIN IS WARM AND DRY TO TOUCH, ABLE TO MOVE ALL EXTREMENESS, IV SITE TO RIGHT FOREARM, 20GA, RUNNING HEPARIN DRIP AT 880 UNITS/HR, D5 NS AT 40 ML/HR, IV TO RIGHT WRIST, 24GA, PATENT AND SL. ORIENTED PATIENT TO ICU, EXPLAINED POC TO PATIENT, PATIENT VERBALIZED UNDERSTANDING, HOB ELEVATED 30 DEGREES, SAFETY MEASURES IN PLACE, CALL LIGHT WITHIN REACH, WILL CONTINUE TO MONITOR.
--- NOTE | 2020-01-25 13:00 | NUR ---
PATIENT IS DESATURATING 84%-88%, RT AND DR. RODRIGUES MADE AWARE, RT AT BEDSIDE.
--- NOTE | 2020-01-25 14:00 | NUR ---
PATIENT IS RESTING IN BED, NO S/S OF DISTRESS, VSS, DENIES PAIN.
--- NOTE | 2020-01-25 16:00 | NUR ---
NO CHANGE OF CONDITION, VSS, DENIES PAIN, ABLE TO SELF POSITION AT THIS TIME.
[2020-01-25] MEDS ORDERED: VANCOMYCIN PER PHARMACY MC PRN (16:55)
--- NOTE | 2020-01-25 18:00 | NUR ---
ABLE TO SIT UP FOR DINNER AT THIS TIME, VSS, DENIES PAIN.
[2020-01-25] MEDS: VANCOMYCIN HCL 1.25 GM in NACL 0.9% 250 ML IV SCH (18:12)
--- NOTE | 2020-01-25 19:12 | NUR ---
REPORT GIVEN TO MANDREL PRESS HAND NURSE FOR CONTINUE OF CARE, PT IS IN STABLE CONDITION AT THIS TIME.
--- NOTE | 2020-01-25 19:30 | NUR ---
RECEIVED CHANGE OF SHIFT REPORT AT BEDSIDE FROM DAY SHIFT NURSE. PT IS AWAKE AND ALERT. PT IS KISWAHILI SPEAKING A&OX4. PT APPEARED TO BE SOB. SPO2 85-88% AND IS TACHYPNEIC W/ RATE OF 34. HOB PLACED AT 60 DEGREES. TOOK OFF OXYMIZER AND PLACED PT ON NRB 15LPM. SPO2 WAS RAISED TO 89-90% W/ GOOD WAVEFORM. S1S2 HEARD. +2 RADIAL PULSES FELT. CAP REFILL <3 SECONDS. 24G PIV NOTED OF THE RIGHT WRIST. UNABLE TO FLUSH. ASYMPTOMATIC. 20G PIV NOTED ON THE RIGHT AC. ASYMPTOMATIC, PATENT, AND INTACT. PT HAS D5NS RUNNING AT 20ML/HR. BOWEL SOUNDS HEARD. PT ABLE TO MOVE ALL FOUR EXTREMITIES WELL. CALL LIGHT WITHIN REACH. BED IN LOW POSITION. WILL CONTINUE TO MONITOR.
--- NOTE | 2020-01-25 20:00 | NUR ---
PT STILL APPEARING ANXIOUS, SOB AND TACHYPNEIC W/ SPO2 AT 90-92%. ATTEMPTED TO PINNER PRINTED CIRCUIT BOARDS PT TO BREATH EASIER W/ LITTLE SUCCESS. SPOKE TO PT'S DAUGHTER ON PT'S CELLULAR PHONE. PT'S DAUGHTER WAS ABLE TO EASE PT. BLOOD PRESSURE WAS 193/64. WILL ADMINISTER HYDLAZINE.
[2020-01-25] MEDS ORDERED: FUROSEMIDE 20 MG/2 ML VIAL IVP SCH (20:10)
[2020-01-25] MEDS: ALBUTEROL HFA MDI 90 MCG/ACTUATION 8 GM INH PRN (20:10)
[2020-01-25] MEDS: INSULIN LISPRO SLIDING SCALE 100 UNITS/ML VIAL SUBQ PRN (20:48)
[2020-01-25] MEDS ORDERED: SIMVASTATIN 20 MG TAB PO SCH (21:00)
[2020-01-25] MEDS ORDERED: LORazepam 0.5 MG TAB PO SCH (21:25)
[2020-01-25] MEDS ORDERED: LORazepam 1 MG TAB ONE (21:28)
--- NOTE | 2020-01-25 21:55 | NUR ---
ATIVAN ADMINISTERED AND MORAELS CATHETER INSERTED SUCCESSFULLY. PT TOLERATED WELL.
--- NOTE | 2020-01-25 23:00 | NUR ---
PT IS AROUSABLE TO VOICE. PT IS TACHYPNEIC W/ SHALLOW BREATHING. HOB IS 45 DEGREES. ON O2 VIA NRB AT 15LPM. PT DOESN'T APPEAR TO BE IN DISTRESS. PT OCCASIONALLY TAKES OFF NRB, BUT IS REMINDED TO PUT IT BACK ON. BED IS LOCKED IN LOW POSITION. WILL CONTINUE TO MONITOR.
[2020-01-25] MEDS: AZITHROMYCIN 500 MG in DEXTROSE 5% 250 ML IV SCH (23:02)
[2020-01-25] MEDS: NACL 0.9% 1,000 ML IV SCH (23:02)
[2020-01-26] VITALS (8 sets, daily range): BP systolic 128–162; BP diastolic 58–91
--- NOTE | 2020-01-26 01:30 | NUR ---
SPO2 AT 88%. CHECKED ON PT. PT HAS NRB OFF. REMINDED PT TO KEEP MASK ON. REPOSITIONED PT AND HOB 45 DEGREES. NO SIGNS OF DISTRESS NOTED. BED IS LOCKED. CALL LIGHT WITHIN REACH. SAFETY MEASURES IN PLACE. WILL CONTINUE TO MONITOR
--- NOTE | 2020-01-26 03:30 | NUR ---
PT APPEARS TO BE RESTING. HOB 45 DEGREES. PT HAS NRB ON AT 15 LPM. SPO2 92%. WILL CONTINUE TO MONITOR.
[2020-01-26 06:12] LABS: HEMATOCRIT 33.3 % (36-48); HEMOGLOBIN 10.8 g/dL (12.0-16.0); MEAN CORPUSCULAR HEMOGLOBIN 29 pg (27-31); MEAN CORPUSCULAR HGB CONC 33 g/dL (33-37); MEAN CORPUSCULAR VOLUME 88.5 fL (80-94); PLATELET COUNT (AUTO) 394 K/uL (140-450); RED BLOOD CELL COUNT(AUTO) 3.76 MIL/uL (4.20-5.40); RED CELL DISTRIBUTION WIDTH 16.3 % (11.6-13.7); WHITE BLOOD COUNT (AUTO) 10.9 K/uL (4.8-10.8)
[2020-01-26 06:46] LABS: ANION GAP 10.6 (8-16); CARBON DIOXIDE 27.1 mmol/L (21-32); CREATININE 1.2 mg/dL (0.6-1.3); POTASSIUM 4.7 mmol/L (3.5-5.1)
--- NOTE | 2020-01-26 07:20 | NUR ---
GAVE CHANGE OF SHIFT REPORT TO DAY SHIFT NURSE TO ENSURE CONTINUITY OF CARE. PT STABLE AT THIS TIME
[2020-01-26 07:24] LABS: BASOPHILS % (MANUAL) 0 % (0-2); EOSINOPHILS % (MANUAL) 2 % (0-4); LYMPHOCYTES % (MANUAL) 18 % (20-46); MONOCYTES % (MANUAL) 7 % (5-12)
[2020-01-26] MEDS: BLOOD GLUCOSE MONITORING 1 DEV DEV FS SCH ×4 (07:30→21:32)
--- NOTE | 2020-01-26 07:34 | NUR ---
RECEIVED REPORT AT BEDSIDE FROM LEAD SYSTEMS ANALYST RN FOR CONTINUITY OF CARE. PT IS AAOX4, KISWAHILI SPEAKING. PT O2 SAT AT 93% ON 15L/MIN VIA NON REBREATHER. PT IS TACHYPNEIC W/ RATE OF 31. HOB PLACED AT 60 DEGREES. 20G IV NOTED ON THE RIGHT AC. ASYMPTOMATIC, PATENT, AND INTACT. PT HAS D5NS RUNNING AT 20ML/HR. BOWEL SOUNDS HEARD. PT ABLE TO MOVE ALL FOUR EXTREMITIES WELL. DISCUSSED POC WITH PT AND PT VERBALIZED UNDERSTANDING. SAFETY MEASURES IN PLACE. CALL LIGHT WITHIN REACH. BED IN LOW POSITION. WILL MONITOR PT CLOSELY THROUGHOUT THE SHIFT.
[2020-01-26] MEDS: METOPROLOL SUCCINATE 50 MG TABER PO SCH (09:10)
[2020-01-26] MEDS: ASPIRIN 81 MG TAB.CHEW PO SCH (09:10)
[2020-01-26] MEDS: OSELTAMIVIR PHOSPHATE 75 MG CAP PO SCH ×2 (09:10→21:32)
[2020-01-26] MEDS: ZINC SULF 220 MG CAP PO SCH (09:10)
[2020-01-26] MEDS: ASCORBIC ACID 500 MG TAB PO SCH (09:11)
[2020-01-26] MEDS: HYDROXYCHLOROQUINE 200 MG TAB PO SCH (09:11)
[2020-01-26] MEDS: ENOXAPARIN 40 MG/0.4 ML SYR SUBQ SCH (09:12)
--- NOTE | 2020-01-26 09:12 | NUR ---
ADMINISTERED MORNING MEDS. PT TOLERATED WELL. ALL OTHER NEEDS MET. PT O2 SAT @ 92% WHEN PT KEEPS MASK ON. INSTRUCTED PT ON HOW TO PROPERLY WEAR HER NON REBREATHER. PT VERBALIZED UNDERSTANDING. ALL NEEDS MET. WILL CONTINUE TO ROUND ON PT.
--- NOTE | 2020-01-26 11:24 | NUR ---
PT RESTING IN BED. GLUCOSE CHECK DONE BUT UNABLE TO SCAN PT DUE TO USE OF GLUCOMETER PROTECTIVE SLEEVE. PT GLUCOSE AT 135. WILL CONTINUE TO MONITOR PT CLOSELY.
--- NOTE | 2020-01-26 13:28 | NUR ---
PT SLEEPING. O2 SAT @ 92%. NO SIGNS OF DISTRESS OR SOB. WILL CONTINUE TO ROUND ON PT.
[2020-01-26 13:40] LABS: FERRITIN 1807 ng/mL (15 - 150)
--- NOTE | 2020-01-26 15:16 | NUR ---
PT ASLEEP IN BED. NO SIGNS OF SOB OR DISTRESS. ALL NEEDS MET. WILL CONTINUE TO MONITOR PT CLOSELY.
[2020-01-26] MEDS: ALBUTEROL HFA MDI 90 MCG/ACTUATION 8 GM INH PRN (15:36)
--- NOTE | 2020-01-26 17:54 | NUR ---
PT RESTING IN BED HAVING DINNER. ALL NEEDS MET. WILL CONTINUE TO MONITOR PT CLOSELY.
[2020-01-26] MEDS: VANCOMYCIN HCL 1.25 GM in NACL 0.9% 250 ML IV SCH (18:07)
--- NOTE | 2020-01-26 19:24 | NUR ---
ENDORSED PT TO FOREST ECOLOGY PROFESSOR RN FOR CONTINUITY OF CARE. PT IN STABLE CONDITION AT THIS TIME.
--- NOTE | 2020-01-26 19:30 | NUR ---
RECEIVED CHANGE OF SHIFT REPORT AT BEDSIDE FROM DAY SHIFT NURSE. PT IS MACANESE SPEAKING. PT IS AWAKE AND ALERT. PT DOESN'T APPEAR TO BE IN DISTRESS. PT IS ABLE TO TRACK WELL. EYES PERRL. 3MM. PT IS ON O2 VIA NRB AT 15 LPM TO KEEP SPO2 ABOVE 90%. LUNG SOUNDS ARE CLEAR W/ DIMINISHED BASES. PT IS ABLE TO MOVE ALL FOUR EXTREMITIES WELL. PT DOES HAVE A DRY NON-PRODUCTIVE COUGH. SR ON MONITOR. S1S2 HEARD. +2 RADIAL PULSES. CAP REFILL <3. PT HAS NON-PITTING EDEMA BILATERAL HANDS. MORALES CATHETER IS NOTED. PIV 20G RIGHT AC IS ASYMPTOMATIC, PATENT AND INTACT. PIV 24G OF THE RIGHT WRIST IS UNABLE TO SALINE FLUSH. BED IS LOCKED W/ HOB 45 DEGREES IN LOW POSITION. CALL LIGHT WITHIN REACH. WILL CONTINUE TO MONITOR.
--- NOTE | 2020-01-26 21:00 | NUR ---
PT IS AROUSABLE TO VOICE. PT IS TACHYPNEIC W/ RATE OF 36. PT ON NRB 15 LPM . WHEN ASKED, PT DID NOT EXPRESS DISTRESS NOR PAIN. BED IS LOCKED IN LOW POSITION W/ HOB AT 45 DEGREES. SAFETY MEASURES IN PLACE. WILL CONTINUE TO MONITOR.
[2020-01-26] MEDS: NACL 0.9% 1,000 ML IV SCH (21:33)
[2020-01-26] MEDS ORDERED: MELATONIN 3 MG TAB PO PRN (21:35)
[2020-01-26] MEDS ORDERED: hydrALAZINE 20 MG/ML VIAL IVP ONE (22:10)
--- NOTE | 2020-01-26 22:37 | NUR ---
PT APPEARS TO BE SOB AND ANXIOUS. ATTEMPTS TO CALM PT DOWN WERE SUCCESSFUL. PT NEEDED REMINDERS TO KEEP NRB ON. 5MG OF HYDRALAZINE IVP GIVEN FOR SBP OF 175. DOCTOR AWARE OF RISING BP. WILL CONTINUE TO MONITOR.
[2020-01-26] MEDS: AZITHROMYCIN 500 MG in DEXTROSE 5% 250 ML IV SCH (23:08)
[2020-01-27] VITALS: BP 164/70
[2020-01-27] MEDS ORDERED: LORazepam 0.5 MG TAB PO PRN (00:15)
--- NOTE | 2020-01-27 01:00 | NUR ---
PT APPEARS TO BE IN DISTRESS. WHEN ASKED PT STATED THAT SHE IS SOB. PT IS TACHYPNEIC W/ RATE OF 40. PT APPEARED TO BE ANXIOUS. WHEN ASKED ABOUT PAIN, PT STATED THAT SHE WAS NOT IN PAIN. HOB OF RAISED TO 60 DEGREES. ATTEMPTED TO CALM PT DOWN AND PUNCH HAND HER BREATHING. WAS UNSUCCESSFUL. ATIVAN 0.5 MG PO WAS GIVEN FOR ANXIETY. RT MADE AWARE OF COMPLAINTS OF SOB. SECOND ATTEMPT TO CALM PT DOWN WERE SUCCESSFUL. CONSTANT REMINDERS WERE NEEDED TO KEEP NRB ON PT.
[2020-01-27] MEDS ORDERED: FUROSEMIDE 40 MG/4 ML VIAL IVP ONE ×2 (01:15→04:48)
--- NOTE | 2020-01-27 01:21 | NUR ---
Checked on patient and noticed that patient respiratory rate was elevated. Patient was taking off the NRB mask which caused her rate to elevate and saturation to decrease. Spoke to the blood donor recruiter Doctor about her resp rate and chest recent chest xray results. We will closely monitor patient status and make sure she keeps oxygen on. Patient is stable on NRB mask saturation 96 hr 100 RR 32.
--- NOTE | 2020-01-27 02:32 | NUR ---
PT APPEARED TO BE RESTING W/ EYE CLOSED. SBP 146 W/ SPO2 ABOVE 90%. NO SIGNS OF DISTRESS NOTED FROM PT. BED IS LOCKED, IN LOW POSITION. CALL LIGHT WITHIN REACH. WILL CONTINUE TO MONITOR.
[2020-01-27 04:00] VITALS: BP 153/66
--- NOTE | 2020-01-27 05:15 | NUR ---
MORNING CARE PERFORMED. PT WAS REPOSITIONED. PT IS ON O2 NRB AT 15LPM TO MAINTAIN SPO2 ABOVE 90%. PT NEEDS CONSTANT REMINDERS TO KEEP MASK ON. PT IS COOPERATIVE. NO DISTRESS NOTED. PT IS TACHYPNEIC W/ RATE ABOVE 30 W/ EQUAL RISE AND FALL OF THE CHEST. TEMP IS 98.1 ORAL. NON-PITTING EDEMA NOTED OF BILATERAL HANDS. UO IS 450ML. BED IS LOCKED, HOB 45 DEGREES. CALL LIGHT WITHIN REACH. WILL CONTINUE TO MONITOR.
[2020-01-27 06:16] LABS: BASOPHILS # (AUTO) 0.1 K/uL (0.00-0.22); BASOPHILS % (AUTO) 0.4 % (0.0-2.0); EOSINOPHILS # (AUTO) 0.3 K/uL (0-0.4); EOSINOPHILS % (AUTO) 2.3 % (0.0-4.0); HEMATOCRIT 32.8 % (36-48); HEMOGLOBIN 10.5 g/dL (12.0-16.0); LYMPHOCYTES # (AUTO) 1.3 K/uL (2.5-16.5); LYMPHOCYTES % (AUTO) 8.8 % (20.5-51.1); MEAN CORPUSCULAR HEMOGLOBIN 28 pg (27-31); MEAN CORPUSCULAR HGB CONC 32 g/dL (33-37); MEAN CORPUSCULAR VOLUME 88.2 fL (80-94); MONOCYTES # (AUTO) 1.2 K/uL (0.8-1.0); MONOCYTES % (AUTO) 8.3 % (1.7-9.3); NEUTROPHILS # (AUTO) 11.4 K/uL (1.8-7.7); NEUTROPHILS % (AUTO) 80.2 % (42.2-75.2); PLATELET COUNT (AUTO) 432 K/uL (140-450); RED BLOOD CELL COUNT(AUTO) 3.72 MIL/uL (4.20-5.40); RED CELL DISTRIBUTION WIDTH 16.8 % (11.6-13.7); WHITE BLOOD COUNT (AUTO) 14.3 K/uL (4.8-10.8)
[2020-01-27 06:27] LABS: ALBUMIN 1.7 g/dL (3.4-5.0); ANION GAP 12.5 (8-16); CARBON DIOXIDE 27.5 mmol/L (21-32); CREATININE 1.2 mg/dL (0.6-1.3); TOTAL BILIRUBIN 0.4 mg/dL (0.0-1.0)
[2020-01-27] MEDS: BLOOD GLUCOSE MONITORING 1 DEV DEV FS SCH ×4 (07:50→20:22)
--- NOTE | 2020-01-27 07:50 | NUR ---
DR GAYTAN AND MEDICAL TEAM AT BEDSIDE FOR EVAL
[2020-01-27 08:00] VITALS: BP 158/73
--- NOTE | 2020-01-27 08:20 | NUR ---
RT AT BEDSIDE FOR ABG
--- NOTE | 2020-01-27 09:10 | NUR ---
DR WEBB AT BEDSIDE, ABG RESULT DISCUSSED, WILL MONITOR CLOSELY
[2020-01-27] MEDS ORDERED: ASCORBIC ACID 500 MG TAB ONE (09:12)
[2020-01-27] MEDS: ASCORBIC ACID 500 MG TAB PO SCH (09:14)
[2020-01-27] MEDS: ZINC SULF 220 MG CAP PO SCH (09:14)
[2020-01-27] MEDS: HYDROXYCHLOROQUINE 200 MG TAB PO SCH (09:14)
[2020-01-27] MEDS: ASPIRIN 81 MG TAB.CHEW PO SCH (09:14)
[2020-01-27] MEDS: METOPROLOL SUCCINATE 50 MG TABER PO SCH (09:16)
[2020-01-27] MEDS: OSELTAMIVIR PHOSPHATE 75 MG CAP PO SCH ×2 (09:16→20:24)
[2020-01-27] MEDS: ENOXAPARIN 40 MG/0.4 ML SYR SUBQ SCH (09:18)
[2020-01-27] MEDS: LISINOPRIL 20 MG TAB PO SCH (11:16)
[2020-01-27 12:00] VITALS: BP 148/67
--- NOTE | 2020-01-27 12:11 | NUR ---
01/27/20 RD INITIAL ASSESSMENT COMPLETED PLEASE REFER TO NUTRITION ASSESSMENT UNDER CARE ACTIVITY FOR ESTIMATED NUTRITIONAL NEEDS. 1. RECOMMEND [facility] SOFT CCHO 60GM DIET WITH GLUCERNA ONCE DAILY TOLERATED 2. CONTINUE FLUID RESTRICTION OF 1.5 L/DAY 3. ENCOURAGE INCREASING PO INTAKE 4. PROVIDE PATIENTS FOOD PREFERENCE 5. RD TO FOLLOW-UP 2-3 DAYS, HIGH RISK ALVAREZ BLACKWELL, JEFF
--- NOTE | 2020-01-27 12:15 | NUR ---
PT RESTING WITH EYES CLOSED, PT AROUSES WITH VOICE, STATES NOT HUNGRY, LUNCH TRAY OFFERED, BLOOD SUGAR 146, NO INSULIN NEEDED, MORALES CARE DONE, REPOSITIONED WITH PROMPTS, CALL CHRISTENSEN WITHIN REACH, DENIES PAIN WILL CONITINUE TO MONIOR
--- NOTE | 2020-01-27 12:28 | NUR ---
CXR DONE AT BEDSIDE
--- NOTE | 2020-01-27 14:10 | NUR ---
PT PUSHED CALL CHRISTENSEN, WANTS TO DRINK WATER, ASSISTED WITH HOLDING CUP, PT DRINKS WITHOUT PROBLEM.
[2020-01-27 16:00] VITALS: BP 137/71
--- NOTE | 2020-01-27 18:05 | NUR ---
SMEAR OF STOOL ON CHUCKS, PERICARE DONE, GOWN CHANGED, PADS CHANGED, POSITIONED FOR COMFORT, PT STATES SHE IS NOT HUNGRY, JUST WANTED WATER, VS STABLE, REMAINS ON NRB MASK, RESP EVEN UNLABORED, TACHYPNEAC RR 30.
[2020-01-27] MEDS: VANCOMYCIN HCL 1.25 GM in NACL 0.9% 250 ML IV SCH (18:25)
--- NOTE | 2020-01-27 19:20 | NUR ---
RECEIVED REPORT FROM SARA RN DAYSHIFT NURSE AT BEDSIDE FOR CONTINUITY OF CARE, PT IN STABLE CONDITION. SHE IS AWAKE IN BED WITH 15 LITER REBREATHER MASK RR ARE 34 02 STAT IS 95%. PT HAS 20G RAC RUNNING VANCOMYCIN AT 165MLS/HR.PT ALSO HAS MORALES CATHETER DRAINING YELLOW URINE.PT HEART RATE IS 90 B/P IS 164/72. ALL FALLS AND CONTACT PRECAUTIONS IN PLACE.
--- NOTE | 2020-01-27 19:20 | NUR ---
REPORT GIVEN TO CLICKING MACHINE OPERATOR NURSE ASHLEY.
[2020-01-27 20:00] VITALS: BP 150/72
--- NOTE | 2020-01-27 20:38 | NUR ---
VANCOMYCIN COMPLETED,PT ALSO HAS 24 GUAGE ON RIGHT WRIST SALINE LOCKED. PT TEMP IS 98.2, HER FINGERSTICK IS 126 NO HUMALOG COVERAGE NEEDED. MORALES CATHETER INTACT AND DRAINED 300MLS OF YELLOW URINE. PT GIVEN ORDERED TAMIFLU. SHE REQUESTED THE REST OF HER ALLOTTED FLUIDS FOR THE NIGHT. PT DINNER TRAY STILL AT BEDSIDE, SHE STARTED TO CONSUME SOME OF THE FOOD. ALL OTHER REQUESTS ATTENDED. ALL FALLS AND DROPLET PRECAUTIONS IN PLACE.
--- NOTE | 2020-01-27 23:30 | NUR ---
PT IN BED, REPOSITIONED WITH ASSISTANCE, IV SITE INTACT AND ASYMPTOMATIC , V/S FOLLOWS: T 99.2 P 91 R 33 B/P 173/72 02 15 LITERS NON REBREATHER MASK. HUNG ZITHROMAX RUNNING AT 250ML/HR ORDERED. WILL SPEAK TO MD RESIDENT NGYUEN REGARDING ELEVATED B/P. ALL DROPLET AND FALLS PRECAUTIONS IN PLACE.
[2020-01-27] MEDS: AZITHROMYCIN 500 MG in DEXTROSE 5% 250 ML IV SCH (23:44)
[2020-01-28] VITALS: BP 173/72
--- NOTE | 2020-01-28 00:30 | NUR ---
SPOKE WITH RESIDENT NGYUEN REGARDING PT VITAL SIGNS, WILL CONTINUE TO MONITOR PT. COOLING MEASURES PROVIDED TO RESIDENT FOR INCREASED TEMP. PT RESTING WITH EYES CLOSED BUT AROUSABLE TO NAME AND LIGHT TOUCH.
--- NOTE | 2020-01-28 01:02 | NUR ---
pt remains on 100 percent nrb. pt satting well. pt is in no distress. will cont to monitor
--- NOTE | 2020-01-28 01:02 | NUR ---
assessed pt. pt is in no respiratory distress. pt remains on 100% nrb. no respiratory distress noted. will cont to monitor Addendum: 01/28/20 at 0608 by Jenna Suazo RT chart on wrong pt.
[2020-01-28 04:00] VITALS: BP 146/62
--- NOTE | 2020-01-28 04:00 | NUR ---
V//S FOLLOWS T 99.1 P 86 R 26 B/P 146/71 02 92% WITH 15 L NRB MASK PT WAS TURNED, CLEANED AND REPOSITIONED. NEW IV SITE ADMINISTERED DUE TO PT PULLING OUT OLD SITE. PT ALSO GIVEN COLACE PO/PRN FOR CONSTIPATION. FINGERSTICK IS 121 NO HUMALOG COVERAGE NEEDED.ALL DROPLET PRECAUTIONS IN PLACE.
[2020-01-28] MEDS: DOCUSATE SODIUM 100 MG GELCAP PO PRN (04:23)
[2020-01-28 05:29] LABS: HEMATOCRIT 31.3 % (36-48); HEMOGLOBIN 9.8 g/dL (12.0-16.0); MEAN CORPUSCULAR HEMOGLOBIN 28 pg (27-31); MEAN CORPUSCULAR HGB CONC 31 g/dL (33-37); MEAN CORPUSCULAR VOLUME 88.4 fL (80-94); PLATELET COUNT (AUTO) 392 K/uL (140-450); RED BLOOD CELL COUNT(AUTO) 3.54 MIL/uL (4.20-5.40); RED CELL DISTRIBUTION WIDTH 16.6 % (11.6-13.7); WHITE BLOOD COUNT (AUTO) 12.5 K/uL (4.8-10.8)
[2020-01-28 05:46] LABS: CARBON DIOXIDE 27.8 mmol/L (21-32); CREATININE 1.2 mg/dL (0.6-1.3); POTASSIUM 4.8 mmol/L (3.5-5.1)
[2020-01-28 06:26] LABS: EOSINOPHILS % (MANUAL) 1 % (0-4)
[2020-01-28 06:29] LABS: LYMPHOCYTES % (MANUAL) 7 % (20-46); MONOCYTES % (MANUAL) 7 % (5-12)
--- NOTE | 2020-01-28 07:19 | NUR ---
REPORT GIVEN TO ITZ RN DAYSHIFT AT BEDSIDE FOR CONTINUITY OF CARE, PT IN STABLE CONDITION.
--- NOTE | 2020-01-28 07:20 | NUR ---
RECEIVED REPORT FROM ASHLEY FARM EQUIPMENT SERVICE TECHNICIAN RN, BEDSIDE FOR CONTINUITY OF CARE, ASLEEP, WITH 15 LITER REBREATHER MASK, FLACC-0. IV SITE INTACT, ASYMPTOMATIC, AND INFUSING IVF WELL. PT ALSO HAS MORALES CATHETER DRAINING TO GRAVITY WITH YELLOW URINE. SKIN INTACT, ALL FALLS AND DROPLET PRECAUTIONS IN PLACE, CALL LIGHT WITHIN REACH, WILL CONTINUE TO MONITOR PATIENT.
[2020-01-28] MEDS: ZINC SULF 220 MG CAP PO SCH (07:49)
[2020-01-28] MEDS: ASCORBIC ACID 500 MG TAB PO SCH (07:50)
[2020-01-28] MEDS: HYDROXYCHLOROQUINE 200 MG TAB PO SCH (07:50)
[2020-01-28] MEDS: LISINOPRIL 20 MG TAB PO SCH (07:50)
--- NOTE | 2020-01-28 07:50 | NUR ---
ORDERED MEDICATIONS GIVEN. PATIENT TOLERATED THEM WELL. VERBALIZED PLAN OF CARE WITH PATIENT. PATIENT VERBALIZED UNDERSTANDING ABOUT KEEPING HER NRB MASK ON AND DEEP BREATHING. PATIENT DENIES PAIN. PATIENT WAS MADE COMFORTABLE, PATIENT NOW SITTING UP IN BED ATTEMPTING TO EAT BREAKFAST. PATIENT HAS NO COMPLAINTS AT THIS TIME. SAFETY AND DROPLET PRECAUTIONS IN PLACE, CALL LIGHT WITHIN REACH, WILL CONTINUE TO MONITOR PATIENT.
[2020-01-28] MEDS: ASPIRIN 81 MG TAB.CHEW PO SCH (07:51)
[2020-01-28] MEDS: ENOXAPARIN 40 MG/0.4 ML SYR SUBQ SCH (07:52)
[2020-01-28 08:00] VITALS: BP 154/68
[2020-01-28] MEDS: BLOOD GLUCOSE MONITORING 1 DEV DEV FS SCH ×4 (08:00→20:08)
[2020-01-28] MEDS: METOPROLOL SUCCINATE 50 MG TABER PO SCH (09:11)
[2020-01-28] MEDS: FUROSEMIDE 20 MG/2 ML VIAL IVP SCH (09:12)
[2020-01-28] MEDS: OSELTAMIVIR PHOSPHATE 75 MG CAP PO SCH ×2 (09:12→20:08)
--- NOTE | 2020-01-28 09:15 | NUR ---
ORDERED MEDICATIONS GIVEN. PATIENT TOLERATED THEM WELL. PATIENT'S PHONE CHARGING AND AT BEDSIDE. PATIENT HAS NO COMPLAINTS AT THIS TIME. SAFETY AND DROPLET PRECAUTIONS IN PLACE, CALL LIGHT WITHIN REACH, WILL CONTINUE TO MONITOR PATIENT.
[2020-01-28 12:00] VITALS: BP 157/98
--- NOTE | 2020-01-28 12:15 | NUR ---
BLOOD SUGAR 149, NO COVERAGE NEEDED. PATIENT SITTING UP FOR LUNCH. PATIENT DENIES PAIN, HAS NO COMPLAINTS AT THIS TIME. SAFETY AND DROPLET PRECAUTIONS IN PLACE, CALL LIGHT WITHIN REACH, WILL CONTINUE TO MONITOR PATIENT.
[2020-01-28 16:00] VITALS: BP 137/60
--- NOTE | 2020-01-28 16:45 | NUR ---
BLOOD SUGAR 150, NO COVERAGE NEEDED. PATIENT TOLERATED IT. HAS NO COMPLAINTS AT THIS TIME. FC CARE GIVEN. PATIENT RESTING IN BED, DENIES PAIN. SAFETY AND DROPLET PRECAUTIONS IN PLACE, CALL LIGHT WITHIN REACH, WILL CONTINUE TO MONITOR PATIENT.
[2020-01-28] MEDS: VANCOMYCIN HCL 1.25 GM in NACL 0.9% 250 ML IV SCH (18:30)
--- NOTE | 2020-01-28 19:25 | NUR ---
REPORT GIVEN TO NIGHTSHIFT RN AT BEDSIDE FOR CONTINUITY OF CARE. PATIENT SLEEPING COMFORTABLY IN BED, IN STABLE CONDITION.
--- NOTE | 2020-01-28 19:26 | NUR ---
RECEIVED REPORT FROM MARY MOBLEY RN, BEDSIDE FOR CONTINUITY OF CARE, ASLEEP, WITH 15 LITER REBREATHER MASK, FLACC-0. IV SITE INTACT, ASYMPTOMATIC, AND INFUSING IVF WELL IV VANCO INFUSING PER ORDERS. PT ALSO HAS MORALES CATHETER DRAINING TO GRAVITY WITH YELLOW URINE. SKIN INTACT, ALL FALLS AND DROPLET PRECAUTIONS IN PLACE, CALL LIGHT WITHIN REACH, WILL CONTINUE TO MONITOR PATIENT.
[2020-01-28 20:00] VITALS: BP 149/70
--- NOTE | 2020-01-28 20:08 | NUR ---
VITAL SIGNS STABLE PT ON NRB MASK AT 15L BREATHS ARE EQUAL, SHALLOW. RR 30. BLOOD SUGAR 110 NO COVERAGE NEEDED. JEAN CLAUDE MEDICATIONS GIVEN PER ORDERS. WILL CONTINUE TO MONITOR. Addendum: 01/28/20 at 2311 by Teagan Cueva RN O2 SAT 93%. WILL CONTINUE TO MONITOR.
--- NOTE | 2020-01-28 20:10 | NUR ---
RECEIVED REPORT FROM AM SHIFT. PATIENT WAS SEEN AND ASSESSED. PATIENT IN NO APPARENT RESPIRATORY DISTRESS AT THIS TIME: RR 20, HR 81, SPO2 93% ON NRB. AUSCULTATION REVEALS BILATERAL RALES BREATH SOUNDS. MDI PRN TX NO INDICATED AT THIS TIME. WILL CONTINUE TO MONITOR PATIENT.
--- NOTE | 2020-01-28 21:51 | NUR ---
PT IS SLEEPING COMFORTABLY IN BED. NO S/S OF DISTRESS. CALL LIGHT IS WITHIN REACH. WILL CONTINUE TO MONITOR.
--- NOTE | 2020-01-28 22:54 | NUR ---
ADMINISTERED NORCO FOR BACK PAIN 03/28. ROCEPHIN NOW INFUSING PER ORDERS. ALL SAFETY MEASURES ARE IN PLACE. WILL CONTINUE TO MONITOR.
[2020-01-29] VITALS: BP 152/40
[2020-01-29] MEDS: AZITHROMYCIN 500 MG in DEXTROSE 5% 250 ML IV SCH ×2
--- NOTE | 2020-01-29 | NUR ---
PATIENT IS SLEEPING COMFORTABLY IN BED WITH EYES CLOSED. CHEST RISE AND FALL. VS:98.2, 94% ON 15L NRB, RR 18, 95HR, 152/40, DENIES PAIN. ALL SAFETY MEASURES ARE IN PLACE. CALL LIGHT IS WITHIN REACH. WILL CONTINUE TO MONITOR.
--- NOTE | 2020-01-29 02:30 | NUR ---
PER PATIENT SHE IS HUNGRY. REMOVED NRB AND PATIENT ATE PEACHES. PT SATURATING IN 80'S ON ROOM AIR. APPLIED NRB BACK ON AND TOLD HER ILL BE BACK IN ABOUT 10 MIN WHEN HER OXYGEN GOES UP. ALL SAFETY MEASURES ARE IN PLACE.
[2020-01-29 04:00] VITALS: BP 135/52
--- NOTE | 2020-01-29 04:30 | NUR ---
VITAL SIGNS ARE STABLE. VS:98.8 79HR, 94% RR 18 135/52, DENIES PAIN. ALL NEEDS MET AT THIS TIME. WILL CONTINUE TO MONITOR.
--- NOTE | 2020-01-29 06:00 | NUR ---
PATIENT IS SLEEPING COMFORTABLY WITH EYES CLOSED. CHEST RISE AND FALL NOTED. ALL SAFETY MEASURES ARE IN PLACE. CALL LIGHT IS WITHIN REACH. WILL CONTINUE TO MONITOR.
[2020-01-29 06:13] LABS: HEMATOCRIT 32.4 % (36-48); HEMOGLOBIN 10.4 g/dL (12.0-16.0); MEAN CORPUSCULAR HEMOGLOBIN 29 pg (27-31); MEAN CORPUSCULAR HGB CONC 32 g/dL (33-37); MEAN CORPUSCULAR VOLUME 89.5 fL (80-94); PLATELET COUNT (AUTO) 443 K/uL (140-450); RED BLOOD CELL COUNT(AUTO) 3.62 MIL/uL (4.20-5.40); RED CELL DISTRIBUTION WIDTH 16.7 % (11.6-13.7); WHITE BLOOD COUNT (AUTO) 11.5 K/uL (4.8-10.8)
[2020-01-29] MEDS ORDERED: LORazepam 2 MG/ML VIAL IM/IVP PRN (06:45)
[2020-01-29 06:46] LABS: ALBUMIN 1.5 g/dL (3.4-5.0); ANION GAP 10.4 (8-16); CARBON DIOXIDE 30.7 mmol/L (21-32); CREATININE 1.2 mg/dL (0.6-1.3); MAGNESIUM 1.9 mg/dL (1.8-2.4); PHOSPHORUS 4.4 mg/dL (2.5-4.9); POTASSIUM 5.1 mmol/L (3.5-5.1); TOTAL BILIRUBIN 0.4 mg/dL (0.0-1.0)
[2020-01-29] MEDS: BLOOD GLUCOSE MONITORING 1 DEV DEV FS SCH ×4 (06:56→20:39)
--- NOTE | 2020-01-29 07:22 | NUR ---
GAVE BEDSIDE REPORT TO JAJA RN, PT ENDORSED IN STABLE CONDITION.
--- NOTE | 2020-01-29 07:23 | NUR ---
RECEIVED REPORT FROMNIGHT SHIFT RN. PT IS ASLEEP IN BED, NO SOB, FLACC 0, ON 15 LITER O2 VIA REBREATHER MASK. IV SITE ON LEFT HAND. IV INTACT AND PATENT. INFUSING WELL. MORALES CATH INTACT AND PATENT. DRAINING CLEAER YELLOW URINE. ALL FALL AND DROPLET PRECAUTION IN PLACE, CALL LIGHT WITHIN REACH. WILL CONTINUE TO MONITOR.
[2020-01-29 07:27] LABS: BASOPHILS % (MANUAL) 0 % (0-2); EOSINOPHILS % (MANUAL) 1 % (0-4); LYMPHOCYTES % (MANUAL) 10 % (20-46); MONOCYTES % (MANUAL) 9 % (5-12)
[2020-01-29 08:00] VITALS: BP 144/80
[2020-01-29] MEDS: ENOXAPARIN 40 MG/0.4 ML SYR SUBQ SCH (09:00)
--- NOTE | 2020-01-29 09:00 | NUR ---
PT IN BED. DENIES PAIN, NO SOB, AFEBRILE. BEDSIDE MONITOR IN PLACE. IN STABLE CONDITION
[2020-01-29] MEDS: FUROSEMIDE 20 MG/2 ML VIAL IVP SCH (09:37)
[2020-01-29] MEDS: METOPROLOL SUCCINATE 50 MG TABER PO SCH (09:38)
[2020-01-29] MEDS: LISINOPRIL 20 MG TAB PO SCH (09:38)
[2020-01-29] MEDS: ASPIRIN 81 MG TAB.CHEW PO SCH (09:38)
[2020-01-29] MEDS: ASCORBIC ACID 500 MG TAB PO SCH (09:38)
[2020-01-29] MEDS: ZINC SULF 220 MG CAP PO SCH (09:39)
[2020-01-29] MEDS: HYDROXYCHLOROQUINE 200 MG TAB PO SCH (09:40)
[2020-01-29] MEDS: VANCOMYCIN 750 MG in DEXTROSE 5% 250 ML IV SCH ×2 (09:41→20:15)
--- NOTE | 2020-01-29 09:50 | NUR ---
DUE MORNING MEDS GIVEN. TOLERATED WELL. JUICE AND WATER OFFERED TO PT. FINISHED 1 CARTON OF JUICE.
--- NOTE | 2020-01-29 10:30 | NUR ---
SEEN AND EXAMINED BY DR. WEBB.
--- NOTE | 2020-01-29 11:00 | NUR ---
BLOOD SUGAR CHECKED, 180. SLIDING SCALE GIVEN ORDERED.
[2020-01-29] MEDS: INSULIN LISPRO SLIDING SCALE 100 UNITS/ML VIAL SUBQ PRN (11:54)
[2020-01-29 12:00] VITALS: BP 140/85
--- NOTE | 2020-01-29 12:00 | NUR ---
PT IN BED. V/S BP 140/85 HR 89 RR 32 TEMP 97.8. DENIES PAIN, NO SOB, AFEBRILE. BEDSIDE MONITOR IN PLACE. IN STABLE CONDITION
--- NOTE | 2020-01-29 12:15 | NUR ---
IN BED EATING LUNCH. TOLERATING WELL. ABLE TO FEED SELF WITH ASSISTANCE.
[2020-01-29] MEDS ORDERED: HYDROCHLOROTHIAZIDE 25 MG TAB PO SCH (14:30)
--- NOTE | 2020-01-29 14:30 | NUR ---
NEW ORDER FOR HYDROCHLOROTHIAZIDE 12.5MG PO ONE TIME ONLY. GIVEN ORDERED.
--- NOTE | 2020-01-29 15:00 | NUR ---
SEEN AND EXAMINED BY DR. CAMARILLO
[2020-01-29 16:00] VITALS: BP 137/68
--- NOTE | 2020-01-29 17:00 | NUR ---
BLOOD SUGAR CHECKED, 160. SLIDING SCALE GIVEN ORDERED.
--- NOTE | 2020-01-29 19:14 | NUR ---
ENDORSED TO NIGHT NURSE FOR CONTINUITY OF CARE. IN STABLE CONDITION
--- NOTE | 2020-01-29 19:15 | NUR ---
RECEIVED REPORT FROM [facility] NURSE. PATIENT IN BED RESTING. HOB ELEVATED. ON O2 15LPM VIA NON-REBREATHER MASK. WITH IV G 24 ON L WRIST CLEAN AND INTACT. MORALES CATHETER DRAINING WELL. NO SIGNS OF PAIN OR DISTRESS NOTED AT THIS TIME. PLAN OF CARE DISCUSSED. SAFETY MEASURES IN PLACE. BED IN LOW POSITION, SIDE RAILS RAISED. CALL LIGHT WITHIN REACH. WILL CONTINUE TO MONITOR.
[2020-01-29 20:00] VITALS: BP 140/86
--- NOTE | 2020-01-29 20:41 | NUR ---
SCHEDULED MEDICATIONS GIVEN. VITAL SIGNS STABLE. O2 15 LPM VIA NON-REBREATHER MASK IN PLACE. NO SIGNS OF DISTRESS OR PAIN AT THIS TIME. SAFETY MEASURES IN PLACE. WILL CONTINUE TO MONITOR.
--- NOTE | 2020-01-29 22:17 | NUR ---
RECEIVED REPORT FROM AM SHIFT. PATIENT WAS SEEN AND ASSESSED. PATIENT IN NO APPARENT RESPIRATORY DISTRESS AT THIS TIME: RR 21, HR 89, SPO2 92% ON NRB. AUSCULTATION REVEALS BILATERAL RALES BREATH SOUNDS. MDI PRN TX NO INDICATED AT THIS TIME. WILL CONTINUE TO MONITOR PATIENT.
[2020-01-29] MEDS ORDERED: AZITHROMYCIN 250 MG in DEXTROSE 5% 250 ML IV SCH (23:00)
--- NOTE | 2020-01-29 23:12 | NUR ---
SCHEDULED MEDICATIONS GIVEN. PATIENT IN BED RESTING WITH HOB ELEVATED. O2 15LPM/NRB IN PLACE. O2 SAT 92%. NO SIGNS AND SYMPTOMS OF PAIN OR DISCOMFORT NOTED. SAFETY MEASURES IN PLACE. BED IN LOW POSITION, SIDE RAILS RAISED, CALL LIGHT WITHIN REACH. WILL CONTINUE TO MONITOR.
[2020-01-30] VITALS: BP 131/67
[2020-01-30] MEDS: VANCOMYCIN 750 MG in DEXTROSE 5% 250 ML IV SCH (00:27)
--- NOTE | 2020-01-30 00:58 | NUR ---
SCHEDULED MEDICATIONS GIVEN. PATIENT IN BED RESTING. HOB ELEVATED. VITAL SIGNS STABLE. O2 15LPM/NRB IN PLACE. RESPIRATIONS EVEN AND UNLABORED. NO S/SX OF PAIN OR DISCOMFORT NOTED. SAFETY MEASURES IN PLACE. WILL CONTINUE TO MONITOR.
--- NOTE | 2020-01-30 02:02 | NUR ---
PATIENT IN BED SLEEPING. RESPIRATIONS EVEN AND UNLABORED. O2 15LPM/NRB IN PLACE. NO S/SX OF DISCOMFORT NOTED. SAFETY MEASURES IN PLACE. WILL CONTINUE TO MONITOR.
[2020-01-30 04:00] VITALS: BP 97/50
--- NOTE | 2020-01-30 04:18 | NUR ---
PATIENT IN BED SLEEPING. HOB ELEVATED. VITAL SIGNS STABLE. RESPIRATIONS EVEN AND UNLABORED. O2 15LPM/NRB IN PLACE. NO S/SX OF DISCOMFORT NOTED. SAFETY MEASURES IN PLACE. WILL CONTINUE TO MONITOR.
[2020-01-30] MEDS: BLOOD GLUCOSE MONITORING 1 DEV DEV FS SCH ×4 (06:05→20:29)
[2020-01-30 06:10] LABS: BASOPHILS % (AUTO) 0.5 % (0.0-2.0); EOSINOPHILS # (AUTO) 0.2 K/uL (0-0.4); EOSINOPHILS % (AUTO) 2.6 % (0.0-4.0); HEMATOCRIT 29.4 % (36-48); HEMOGLOBIN 9.3 g/dL (12.0-16.0); LYMPHOCYTES # (AUTO) 1.1 K/uL (2.5-16.5); LYMPHOCYTES % (AUTO) 12.1 % (20.5-51.1); MEAN CORPUSCULAR HEMOGLOBIN 28 pg (27-31); MEAN CORPUSCULAR HGB CONC 32 g/dL (33-37); MEAN CORPUSCULAR VOLUME 89.5 fL (80-94); MONOCYTES # (AUTO) 0.8 K/uL (0.8-1.0); MONOCYTES % (AUTO) 8.3 % (1.7-9.3); NEUTROPHILS % (AUTO) 76.5 % (42.2-75.2); PLATELET COUNT (AUTO) 430 K/uL (140-450); RED BLOOD CELL COUNT(AUTO) 3.28 MIL/uL (4.20-5.40); RED CELL DISTRIBUTION WIDTH 16.9 % (11.6-13.7); WHITE BLOOD COUNT (AUTO) 9.1 K/uL (4.8-10.8)
--- NOTE | 2020-01-30 07:08 | NUR ---
ENDORSED TO DAY SHIFT NURSE. PLAN OF CARE DISCUSSED. PATIENT IN STABLE CONDITION.
--- NOTE | 2020-01-30 07:09 | NUR ---
Received report from pm nurse Ravindra. Pt asleep in bed, respirations even and nonlabored on O2 @ 15lpm via NRB. No signs of distress, FLACC. Left wrist 24G IV intact with ongoing NS @ 10ml/hr. Will cont to monitor.
[2020-01-30 07:27] LABS: ALBUMIN 1.4 g/dL (3.4-5.0); ANION GAP 5.5 (8-16); CARBON DIOXIDE 32.5 mmol/L (21-32); CREATININE 1.4 mg/dL (0.6-1.3); MAGNESIUM 2.1 mg/dL (1.8-2.4); PHOSPHORUS 3.4 mg/dL (2.5-4.9); TOTAL BILIRUBIN 0.2 mg/dL (0.0-1.0)
[2020-01-30 08:00] VITALS: BP 145/68
[2020-01-30] MEDS: METOPROLOL SUCCINATE 50 MG TABER PO SCH (09:07)
[2020-01-30] MEDS: HYDROCHLOROTHIAZIDE 25 MG TAB PO SCH (09:07)
[2020-01-30] MEDS: ZINC SULF 220 MG CAP PO SCH (09:07)
[2020-01-30] MEDS: LISINOPRIL 20 MG TAB PO SCH (09:07)
[2020-01-30] MEDS: ASPIRIN 81 MG TAB.CHEW PO SCH (09:07)
[2020-01-30] MEDS: FUROSEMIDE 20 MG/2 ML VIAL IVP SCH (09:08)
[2020-01-30] MEDS: ENOXAPARIN 40 MG/0.4 ML SYR SUBQ SCH (09:25)
--- NOTE | 2020-01-30 11:40 | NUR ---
Dr. Hampton in unit to see patient.
[2020-01-30 11:49] VITALS: BP 124/53
--- NOTE | 2020-01-30 13:30 | NUR ---
Patient asleep in bed, respirations tachypneic but nonlabored on O2 @ 15Lpm via NRB mask. Pt woken up for lunch. Pt able to eat 40% of meal, aaox3, then went back to sleep. Will cont to monitor.
[2020-01-30] MEDS: ASCORBIC ACID 500 MG TAB PO SCH (14:53)
--- NOTE | 2020-01-30 15:23 | NUR ---
01/30/20 RD FOLLOW UP COMPLETED PLEASE REFER TO NUTRITION ASSESSMENT UNDER CARE ACTIVITY FOR ESTIMATED NUTRITIONAL NEEDS. 1. CONTINUE [facility] SOFT CCHO 60GM DIET WITH GLUCERNA ONCE DAILY TOLERATED 2. CONTINUE FLUID RESTRICTION OF 1.5 L/DAY 3. ENCOURAGE INCREASING PO INTAKE 4. PROVIDE PATIENTS FOOD PREFERENCE 5. RD TO FOLLOW-UP 2-3 DAYS, HIGH RISK ALVAREZ BLACKWELL, JEFF
--- NOTE | 2020-01-30 15:45 | NUR ---
Dr. Davidson in unit to see patient.
[2020-01-30 16:00] VITALS: BP 109/58
--- NOTE | 2020-01-30 16:00 | NUR ---
Patient refused dinner, states she is not hungry. Pt remains lethargic but able to make needs known and follow commands.
--- NOTE | 2020-01-30 19:10 | NUR ---
RECEIVED PATIENT IN STABLE CONDITION FROM AM SHIFT NURSE. CONTINUES ON 15L VIA NONREBREATHER. SKIN INTACT. IV SITE TO LEFT WRIST 24G PATENT/INTACT. ISOLATION PRECAUTIONS IN PLACE. CALL LIGHT WITHIN REACH. WILL CONTINUE TO MONITOR.
--- NOTE | 2020-01-30 19:10 | NUR ---
Report given to pm nurse Mast.
[2020-01-30 20:00] VITALS: BP 141/64
--- NOTE | 2020-01-30 20:10 | NUR ---
ENCOURAGED INTAKE AND PROVIDED PATIENT CARE. BLOOD GLUCOSE LEVEL 111 MG/DL. WILL CONTINUE TO MONITOR.
--- NOTE | 2020-01-30 22:58 | NUR ---
DUE MEDS GIVEN ORDERED. PATIENT CARE RENDERED. WILL CONTINUE TO MONITOR.
[2020-01-31] VITALS: BP 133/56
--- NOTE | 2020-01-31 00:39 | NUR ---
PATIENT ASLEEP IN BED. NO S/SX ACUTE DISTRESS. WILL CONTINUE TO MONITOR.
--- NOTE | 2020-01-31 02:44 | NUR ---
PATIENT AWAKE. PROVIDED EDUCATION REGARDING WEARING NRB. 1100 ML OF CLEAR YELLOW URINE EMPTIED FROM MORALES CATHETER. NO C/O PAIN. SAFETY PRECAUTIONS IN PLACE. ISOLATION PRECAUTIONS OBSERVED. WILL CONTINUE TO MONITOR.
[2020-01-31 04:00] VITALS: BP 147/63
--- NOTE | 2020-01-31 04:14 | NUR ---
PATIENT ASLEEP. NO C/O PAIN. NO S/SX ACUTE DISTRESS. WILL CONTINUE TO MONITOR.
--- NOTE | 2020-01-31 06:05 | NUR ---
PATIENT RESTING WELL IN BED. NO C/O PAIN. NO S/SX DISTRESS NOTED. WILL CONTINUE TO MONITOR.
[2020-01-31 06:12] LABS: BASOPHILS # (AUTO) 0.1 K/uL (0.00-0.22); BASOPHILS % (AUTO) 1.1 % (0.0-2.0); EOSINOPHILS # (AUTO) 0.2 K/uL (0-0.4); EOSINOPHILS % (AUTO) 2.6 % (0.0-4.0); HEMATOCRIT 31.7 % (36-48); HEMOGLOBIN 9.9 g/dL (12.0-16.0); LYMPHOCYTES # (AUTO) 0.9 K/uL (2.5-16.5); LYMPHOCYTES % (AUTO) 11.7 % (20.5-51.1); MEAN CORPUSCULAR HEMOGLOBIN 28 pg (27-31); MEAN CORPUSCULAR HGB CONC 31 g/dL (33-37); MEAN CORPUSCULAR VOLUME 89.1 fL (80-94); MONOCYTES # (AUTO) 0.8 K/uL (0.8-1.0); MONOCYTES % (AUTO) 11.2 % (1.7-9.3); NEUTROPHILS # (AUTO) 5.5 K/uL (1.8-7.7); NEUTROPHILS % (AUTO) 73.4 % (42.2-75.2); PLATELET COUNT (AUTO) 485 K/uL (140-450); RED BLOOD CELL COUNT(AUTO) 3.56 MIL/uL (4.20-5.40); RED CELL DISTRIBUTION WIDTH 16.8 % (11.6-13.7); WHITE BLOOD COUNT (AUTO) 7.4 K/uL (4.8-10.8)
[2020-01-31] MEDS: BLOOD GLUCOSE MONITORING 1 DEV DEV FS SCH ×4 (06:30→21:17)
[2020-01-31 06:43] LABS: ALBUMIN 1.5 g/dL (3.4-5.0); ANION GAP 7.8 (8-16); CARBON DIOXIDE 33.3 mmol/L (21-32); CREATININE 1.1 mg/dL (0.6-1.3); POTASSIUM 5.1 mmol/L (3.5-5.1); TOTAL BILIRUBIN 0.3 mg/dL (0.0-1.0)
--- NOTE | 2020-01-31 07:15 | NUR ---
RECEIVED REPORT FROM INSIDE PHONE SALES NURSE GAVIN FOR CONTINUITY OF CARE. PT IN STABLE CONDITION. RESPIRATIONS EVEN AND UNLABORED, NON REBREATHER MASK 15L. IV INTACT AND PATENT. CONTINUOUS PULSE OXIMETER IN PLACE. SAFETY MEASURES IN PLACE. BED IN LOW POSITION. WILL CONTINUE TO MONITOR.
[2020-01-31 08:00] VITALS: BP 150/79
[2020-01-31] MEDS: ASCORBIC ACID 500 MG TAB PO SCH (09:16)
[2020-01-31] MEDS: LISINOPRIL 20 MG TAB PO SCH (09:16)
[2020-01-31] MEDS: ZINC SULF 220 MG CAP PO SCH (09:16)
[2020-01-31] MEDS: HYDROCHLOROTHIAZIDE 25 MG TAB PO SCH (09:16)
[2020-01-31] MEDS: METOPROLOL SUCCINATE 50 MG TABER PO SCH (09:17)
[2020-01-31] MEDS: ASPIRIN 81 MG TAB.CHEW PO SCH (09:17)
[2020-01-31] MEDS: FUROSEMIDE 20 MG/2 ML VIAL IVP SCH (09:17)
--- NOTE | 2020-01-31 09:17 | NUR ---
GAVE ORDERED DUE MEDICATIONS AT THIS TIME. ASSISTED WITH FEEDING, PT TOLERATED WELL.
[2020-01-31] MEDS: ENOXAPARIN 40 MG/0.4 ML SYR SUBQ SCH (09:18)
--- NOTE | 2020-01-31 10:18 | NUR ---
PT DESATURATES WITHOUT NONREBREATHER MASK ON. PT REPOSITIONS HERSELF AND MASK WILL SHIFT TO SIDE. INSTRUCTED PT TO KEEP MASK ON. PT VERBALIZED UNDERSTANDING.
--- NOTE | 2020-01-31 11:19 | NUR ---
PT SLEEPING AT THIS TIME. RESPIRATIONS EVEN WITH 02 15L VIA NON REBREATHER. WILL CONTINUE TO MONITOR.
[2020-01-31 12:00] VITALS: BP 144/74
--- NOTE | 2020-01-31 12:30 | NUR ---
GAVE LUNCH TRAY AND ASSISTED WITH FEEDING AT THIS TIME. PT TOLERATED WELL. RESPIRATIONS EVEN AND UNLABORED. CALL LIGHT AT BEDSIDE. WILL CONTINUE TO MONITOR.
--- NOTE | 2020-01-31 14:04 | NUR ---
PT SLEEPING AT THIS TIME. RESPIRATIONS EVEN AND UNLABORED. ABLE TO WAKEN WITH EASE. CALL LIGHT AT BEDSIDE. WILL CONTINUE TO MONITOR.
--- NOTE | 2020-01-31 15:15 | NUR ---
DR. LAWRENCE AT BEDSIDE FOR ASSESSMENT. PT IN STABLE CONDITION. BED IN LOW POSITION. CALL LIGHT AT BEDSIDE. BED ALARM ON.
[2020-01-31 16:00] VITALS: BP 139/63
--- NOTE | 2020-01-31 16:00 | NUR ---
CHANGED OXYGEN DEVICE TO OXYMIZER AT 10 LPM SATURATION 93% BUSHING AND BROACH OPERATOR TO MONITOR ISABELL/IAN AWARE Addendum: 01/31/20 at 1608 by Romario Chaves RT PATIENT UNABLE TO FOLLOW COMMANDS AT THIS TIME FOR MDI ALBUTEROL THERAPY
--- NOTE | 2020-01-31 17:30 | NUR ---
GAVE DINNER TRAY AND ASSISTED WITH FEEDING AT THIS TIME. PT TOLERATED WELL. RESPIRATIONS EVEN WITH 10L VIA OXIMIZER. CALL LIGHT AT BEDSIDE. BED ALARM ON. WILL CONTINUE TO MONITOR.
--- NOTE | 2020-01-31 19:10 | NUR ---
GAVE REPORT TO EMERGENCY DEPT TECH NURSE GALA FOR CONTINUITY OF CARE. PT IN STABLE CONDITION.
--- NOTE | 2020-01-31 19:12 | NUR ---
RECEIVED REPORT FROM DAY SHIFT NURSE. PATIENT IN BED SLEEPING. ON O2 10LPM/OXIMIZER. O2 SAT 95%. NO S/SX OF DISTRESS NOTED. IV ACCESS G 24 AT L WRIST CLEAN AND INTACT. FC PATENT AND DRAINING WELL. SAFETY MEASURES IN PLACE. BED IN LOW POSITION, BED ALARM ON, SIDE RAILS UP. PLAN OF CARE DISCUSSED WILL CONTINUE TO MONITOR.
[2020-01-31 20:00] VITALS: BP 155/79
[2020-01-31] MEDS: INSULIN LISPRO SLIDING SCALE 100 UNITS/ML VIAL SUBQ PRN (21:37)
--- NOTE | 2020-01-31 21:41 | NUR ---
ROUNDS MADE. PATIENT IN BED RESTING. HOB ELEVATED. BLOOD SUGAR 175. INSULIN COVERAGE GIVEN ORDERED. VITAL SIGNS STABLE. NO S/SX OF DISCOMFORT NOTED. O2 10LPM/OXIMIZER IN PLACE. O2 SAT 95%. OFFERED WATER. PATIENT TOOK SIPS. SAFETY MEASURES IN PLACE. WILL CONTINUE TO MONITOR.
--- NOTE | 2020-01-31 22:29 | NUR ---
SCHEDULED MEDS GIVEN ORDERED. PT STABLE. RESPIRATIONS EVEN AND UNLABORED. O2 IN PLACE. O2 SAT 95%. WILL CONTINUE TO MONITOR.
[2020-02-01] VITALS: BP 133/59
--- NOTE | 2020-02-01 00:09 | NUR ---
VITAL SIGNS STABLE. AFEBRILE. RESPIRATIONS EVEN AND UNLABORED. O2 IN PLACE. O2 SAT 96%. NO S/SX OF PAIN. PT REQUESTED FOR SOME SNACK. PT ASSISTED IN EATING. NO OTHER REQUESTS MADE. NO S/SX OF DISTRESS NOTED. SAFETY MEASURES IN PLACE. KEPT COMFORTABLE. WILL CONTINUE TO MONITOR.
--- NOTE | 2020-02-01 01:57 | NUR ---
PATIENT SLEEPING. O2 10LPM/OXIMIZER IN PLACE. O2 SAT 96%. NO S/SX OF DISTRESS. SAFETY MEASURES IN PLACE. WILL CONTINUE TO MONITOR.
[2020-02-01 04:00] VITALS: BP 137/46
--- NOTE | 2020-02-01 04:05 | NUR ---
PT IN BED SLEEPING. VITAL SIGNS STABLE. O2 SAT 97%. RESPIRATIONS EVEN AND UNLABORED. NOT IN DISTRESS. PATIENT KEPT COMFORTABLE. SAFETY MEASURES IN PLACE. ISOLATION PRECAUTIONS OBSERVED ALL THROUGHOUT THE SHIFT. WILL CONTINUE TO MONITOR.
--- NOTE | 2020-02-01 05:03 | NUR ---
PATIENT ON O2 10LPM/OXIMIZER. O2 SAT 87%. CHANGED TO NRB 15LPM. HOB ELEVATED. TURNED TO SIDE. O2 SAT INCREASED TO 95%. WILL CONTINUE TO MONITOR.
[2020-02-01] MEDS: BLOOD GLUCOSE MONITORING 1 DEV DEV FS SCH ×4 (06:18→20:16)
--- NOTE | 2020-02-01 06:23 | NUR ---
BLOOD SUGAR 135. NO COVERAGE NEEDED. O2 SAT 95%. ON O2 15LPM/NRB. NO S/SX OF DISTRESS NOTED. SAFETY MEASURES IN PLACE. ISOLATION PRECAUTIONS OBSERVED. WILL CONTINUE TO MONITOR.
[2020-02-01 06:40] LABS: BASOPHILS % (AUTO) 0.6 % (0.0-2.0); EOSINOPHILS # (AUTO) 0.2 K/uL (0-0.4); EOSINOPHILS % (AUTO) 2.5 % (0.0-4.0); HEMOGLOBIN 9.5 g/dL (12.0-16.0); LYMPHOCYTES # (AUTO) 1.2 K/uL (2.5-16.5); LYMPHOCYTES % (AUTO) 15.2 % (20.5-51.1); MEAN CORPUSCULAR HEMOGLOBIN 28 pg (27-31); MEAN CORPUSCULAR HGB CONC 32 g/dL (33-37); MEAN CORPUSCULAR VOLUME 89.2 fL (80-94); MONOCYTES # (AUTO) 0.8 K/uL (0.8-1.0); NEUTROPHILS # (AUTO) 5.4 K/uL (1.8-7.7); NEUTROPHILS % (AUTO) 70.7 % (42.2-75.2); PLATELET COUNT (AUTO) 508 K/uL (140-450); RED BLOOD CELL COUNT(AUTO) 3.36 MIL/uL (4.20-5.40); RED CELL DISTRIBUTION WIDTH 16.5 % (11.6-13.7); WHITE BLOOD COUNT (AUTO) 7.6 K/uL (4.8-10.8)
--- NOTE | 2020-02-01 07:05 | NUR ---
RECEIVED PT FROM INTERMODAL CUSTOMER SERVICE NURSE. PT HAD NONREBREATHER OFF AND WAS INSTRUCTED TO REAPPLY. PT IS CURRENTLY SITTING IN BED WITH NO SIGNS OF DISTRESS NOTED. RESPIRATIONS ARE EVEN AND UNLABORED, ON 15L NON REBREATHER. SKIN IS INTACT WITH IV INFUSING AT 10ML/HR. SAFETY MEASURES IN PLACE, CALL LIGHT WITHIN REACH, AND WILL CONTINUE TO MONITOR.
--- NOTE | 2020-02-01 07:12 | NUR ---
ENDORSED PATIENT TO DAY SHIFT NURSE FOR CONTINUITY OF CARE. PLAN OF CARE DISCUSSED. PATIENT IN STABLE CONDITION.
[2020-02-01 08:00] VITALS: BP 157/63
[2020-02-01] MEDS: ENOXAPARIN 40 MG/0.4 ML SYR SUBQ SCH (08:12)
[2020-02-01] MEDS: LISINOPRIL 20 MG TAB PO SCH (08:16)
[2020-02-01] MEDS: ZINC SULF 220 MG CAP PO SCH (08:17)
[2020-02-01] MEDS: METOPROLOL SUCCINATE 50 MG TABER PO SCH (08:17)
[2020-02-01] MEDS: ASCORBIC ACID 500 MG TAB PO SCH (08:18)
[2020-02-01] MEDS: ASPIRIN 81 MG TAB.CHEW PO SCH (08:18)
[2020-02-01] MEDS: HYDROCHLOROTHIAZIDE 25 MG TAB PO SCH (08:19)
[2020-02-01] MEDS: FUROSEMIDE 20 MG/2 ML VIAL IVP SCH (08:19)
[2020-02-01 08:26] LABS: ALBUMIN 1.5 g/dL (3.4-5.0); ANION GAP 10.2 (8-16); CARBON DIOXIDE 31.9 mmol/L (21-32); CREATININE 1.1 mg/dL (0.6-1.3); POTASSIUM 5.1 mmol/L (3.5-5.1); TOTAL BILIRUBIN 0.2 mg/dL (0.0-1.0)
--- NOTE | 2020-02-01 09:00 | NUR ---
MEDICATIONS ADMINISTERED PER ORDER AND TOLERATED WELL. PT NEEDED ASSISTANCE WITH EATING, ONLY ATE ABOUT 35% OF MEAL. NO SIGNS OF DISTRESS NOTED AND PT DOES NOT COMPLAIN OF ANY PAIN. SAFETY MEASURES IN PLACE AND WILL CONTINUE TO MONITOR.
[2020-02-01] MEDS: ALBUTEROL HFA MDI 90 MCG/ACTUATION 8 GM INH PRN (11:18)
--- NOTE | 2020-02-01 11:19 | NUR ---
SATURATION 98% ON SUPPLEMENTAL OXYGEN AT 15 LPM VIA NON-REBREATHER POSAT THERAPY'S TITRATED FIO2 TO OXYMIZER AT 12 LPM CYANIDE FURNACE OPERATOR TO MONITOR TERRI/RN NOTIFIED
--- NOTE | 2020-02-01 11:48 | NUR ---
LOPPER CALLED TO BEDSIDE FOR UNCONTROLLED DESCENDING SATURATION 83%-88% ON 12 LPM OXYMIZER ATTEMPTED SIMPLE OXYGEN MASK FROM 10-15 LPM WITH SATURATION SUSTAINING AT 97%-88% UNABLE TO TITRATE PLACED PATIENT BACK ON A NON-REBREATHER AT 15 LPM WITH SATURATION IMMEDIATELY ASCENDING TO 93% TERRI/RN AWARE LOPPER TO MONITOR
--- NOTE | 2020-02-01 11:50 | NUR ---
PT IS CURRENTLY LAYING IN BED AND IS LETHARGIC. RT ATTEMPTED TO TITRATE DOWN TO OXIMIZER BUT PT O2 SATURATION WAS IN MID 80S. RT REPLACED NON REBREATHER ON 15L AND PT O2 SATURATION IS NOW SUSTAINING AT 94%. BLOOD SUGAR WAS CHECKED AND PT GLUCOSE WAS 169. WILL ADMINISTER 2 UNITS OF INSULIN. PT IS CURRENTLY EATING WITHOUT ASSISTANCE. SAFETY MEASURES IN PLACE AND WILL CONTINUE TO MONITOR.
[2020-02-01 12:00] VITALS: BP 151/65
[2020-02-01] MEDS ORDERED: CRUSHER, PILL MC ONE (12:08)
--- NOTE | 2020-02-01 13:48 | NUR ---
PT IS CURRENTLY AWAKE AND EATING IN BED. PT O2 SATURATION DROPPED TO 79% AND WAS INSTRUCTED TO REAPPLY NON REBREATHER MASK. 02 SATURATIONS WENT UP TO 95% ONCE NON REBREATHER WAS APPLIED. PT DOES NOT COMPLAIN OF PAIN AT THIS TIME OR PRESENT TO BE IN ANY DISTRESS. SAFETY MEASURES IN PLACE AND WILL CONTINUE TO MONITOR.
--- NOTE | 2020-02-01 14:37 | NUR ---
PT WANTED HELP TO BE REPOSITIONED IN BED. PT ALSO ATE A FRUIT CUP THAT WAS FROM LUNCH. PT DOES NOT SHOW SIGNS OF DISTRESS OR DISCOMFORT. PT REINFORCEMENT WAS NEEDED TO KEEP NON REBREATHER ON AND POSITIONED ACCURATELY. SAFETY MEASURES IN PLACE AND WILL CONTINUE TO MONITOR.
[2020-02-01 16:00] VITALS: BP 147/67
--- NOTE | 2020-02-01 16:22 | NUR ---
PT IS CURRENTLY SLEEPING WITH NO SIGNS OF DISTRESS NOTED. PT WAS ALERT WHEN BLOOD GLUCOSE CHECK WAS INITIATED BLOOD SUGAR WAS CHECKED AND WAS 167. 2 UNITS OF HUMALOG WAS GIVEN PER PARAMETERS AND TOLERATED WELL. SAFETY MEASURES IN PLACE AND WILL CONTINUE TO MONITOR.
[2020-02-01] MEDS: INSULIN LISPRO SLIDING SCALE 100 UNITS/ML VIAL SUBQ PRN ×2 (16:38→20:18)
--- NOTE | 2020-02-01 17:46 | NUR ---
PT IS CURRENTLY AWAKE AND EATING IN BED WITH NO SIGNS OF DISTRESS NOTED. ENCOURAGED PT TO SIT UP BY HERSELF BUT STILL NEEDED ASSISTANCE. PT MORALES WAS EMPTIED AND OUTPUT RECORDED. SAFETY MEASURES IN PLACE AND WILL CONTINUE TO MONITOR.
--- NOTE | 2020-02-01 19:15 | NUR ---
ENDORSED TO ORGAN PIPE FINISHER NURSE. PT IS CURRENTLY ALERT WITH NO SIGNS OF DISTRESS NOTED. PT IS IN STABLE CONDITION.
--- NOTE | 2020-02-01 19:16 | NUR ---
RECEIVED BEDSIDE REPORT FROM DAY SHIFT NURSECAREY. PT AWAKE. NO SOB NOTED WITH NON-BREATHING MASK, 15LPM. SKIN INTACT, WARM AND DRY TO TOUCH. IV SITED ON R WRIST, 24G, PATENT, INTACT, AND ASYMPTOMATIC. BED IN LOW POSITION, CALL LIGHT WITHIN REACH.
[2020-02-01 20:00] VITALS: BP 157/72
[2020-02-01] MEDS: DOCUSATE SODIUM 100 MG GELCAP PO PRN (20:21)
--- NOTE | 2020-02-01 20:21 | NUR ---
BS CHECKED, 154, ADMINISTERED INSULIN SLIDING SCALE. PT HAS CONSTIPATION, GIVEN PRN COLACE. PT TOLERATED WELL.
--- NOTE | 2020-02-01 22:00 | NUR ---
PRESSURE ULCER NOTED ON SACRAL AREA DURING ASSESSMENT. CHANGED PT'S POSITION, PUT OPTIFORM AND ADD SKIN PROBLEM IN POC. REPORTED TO RESIDENT AND RECEIVED FNS, WOUND CONSULT.
[2020-02-02] VITALS: BP 143/64
--- NOTE | 2020-02-02 00:05 | NUR ---
VS CHECKED, WITHIN PT'S BASELINE. WILL CONTINUE TO MONITOR.
--- NOTE | 2020-02-02 02:25 | NUR ---
PT SLEEPING IN BED COMFORTABLY. NO ACUTE DISTRESS NOTED.
[2020-02-02 04:00] VITALS: BP 154/74
--- NOTE | 2020-02-02 04:00 | NUR ---
VS CHECKED, WITHIN PT'S BASELINE. WILL CONTINUE TO MONITOR.
--- NOTE | 2020-02-02 05:37 | NUR ---
PT SLEEPING IN BED COMFORTABLY. NO ACUTE DISTRESS NOTED.
[2020-02-02] MEDS: BLOOD GLUCOSE MONITORING 1 DEV DEV FS SCH ×4 (06:22→21:48)
[2020-02-02 06:23] LABS: BASOPHILS # (AUTO) 0.1 K/uL (0.00-0.22); BASOPHILS % (AUTO) 0.7 % (0.0-2.0); EOSINOPHILS # (AUTO) 0.2 K/uL (0-0.4); HEMATOCRIT 31.8 % (36-48); HEMOGLOBIN 9.8 g/dL (12.0-16.0); LYMPHOCYTES # (AUTO) 1.5 K/uL (2.5-16.5); LYMPHOCYTES % (AUTO) 19.5 % (20.5-51.1); MEAN CORPUSCULAR HEMOGLOBIN 28 pg (27-31); MEAN CORPUSCULAR HGB CONC 31 g/dL (33-37); MEAN CORPUSCULAR VOLUME 89.6 fL (80-94); MONOCYTES # (AUTO) 0.8 K/uL (0.8-1.0); MONOCYTES % (AUTO) 10.8 % (1.7-9.3); PLATELET COUNT (AUTO) 510 K/uL (140-450); RED BLOOD CELL COUNT(AUTO) 3.55 MIL/uL (4.20-5.40); RED CELL DISTRIBUTION WIDTH 16.1 % (11.6-13.7); WHITE BLOOD COUNT (AUTO) 7.6 K/uL (4.8-10.8)
--- NOTE | 2020-02-02 06:23 | NUR ---
BS CHECKED, 129. NO INSULIN COVERAGE NEEDED. 1,250ML OF URINE OUTPUT NOTED.
[2020-02-02 06:32] LABS: ALBUMIN 1.8 g/dL (3.4-5.0); ANION GAP 3.7 (8-16); CREATININE 1.1 mg/dL (0.6-1.3); POTASSIUM 4.7 mmol/L (3.5-5.1); TOTAL BILIRUBIN 0.3 mg/dL (0.0-1.0)
--- NOTE | 2020-02-02 07:12 | NUR ---
ENDORSED PT TO DAY SHIFT NURSE FOR CONTINUOUS CARE. PT IN STABLE CONDITION.
--- NOTE | 2020-02-02 07:16 | NUR ---
RECEIVED PATIENT FROM MAIL ROOM NURSE FOR CONTINUITY OF CARE. PATIENT IS CURRENTLY SLEEPING. NO SIGNS OF DISTRESS NOTED. RESPIRATIONS EVEN AND UNLABORED, ON 15L NONREBREATHER MASK. VISIBLE CHEST RISE NOTED. ON TELE MONITORING. ABDOMEN ROUND, SOFT, AND NONTENDER. LAST BM ON January. SKIN WARM AND DRY. SACRAL PRESSURE ULCER, OPTIFOAM DRESSING INTACT AND DRY. IV IN THE LEFT WRIST GAUGE 24 RUNNING NS AT 10 ML/HR. NO SIGNS OF INFILTRATION NOTED. MORALES CATHETER IN PLACE. YELLOW URINE NOTED. PATIENT IS BEDREST. BED IN LOW POSITION. CALL LIGHT IS WITHIN REACH. DROPLET PRECAUTION IN PLACE. WILL CONTINUE TO MONITOR.
--- NOTE | 2020-02-02 07:28 | NUR ---
AND THE RESIDENT DOCTORS MADE ROUNDS
[2020-02-02 08:00] VITALS: BP 140/77
--- NOTE | 2020-02-02 08:25 | NUR ---
PATIENT IS EATING BREAKFAST AT THIS TIME. O2SAT IS 90%. INSTRUCTED PATIENT TO PUT NONREBREATHER MASK ON AGAIN IF SHE FEELS OUT OF BREATH FROM EATING. PATIENT VERBALIZED UNDERSTANDING.
[2020-02-02] MEDS: FUROSEMIDE 20 MG/2 ML VIAL IVP SCH (09:09)
[2020-02-02] MEDS: HYDROCHLOROTHIAZIDE 25 MG TAB PO SCH (09:09)
[2020-02-02] MEDS: ASPIRIN 81 MG TAB.CHEW PO SCH (09:09)
[2020-02-02] MEDS: ASCORBIC ACID 500 MG TAB PO SCH (09:10)
[2020-02-02] MEDS: LISINOPRIL 20 MG TAB PO SCH (09:10)
[2020-02-02] MEDS: ZINC SULF 220 MG CAP PO SCH (09:10)
[2020-02-02] MEDS: METOPROLOL SUCCINATE 50 MG TABER PO SCH (09:10)
[2020-02-02] MEDS: ENOXAPARIN 40 MG/0.4 ML SYR SUBQ SCH (09:10)
[2020-02-02] MEDS: LACTULOSE 20 GM/30 ML UDC PO SCH ×3 (09:28→16:24)
--- NOTE | 2020-02-02 09:28 | NUR ---
GIVEN MORNING MEDICATIONS PO. GIVEN LOVENOX SUBQ IN THE ABDOMEN. EXPLAINED MEDICATIONS. BED IN LOW POSITION. CALL LIGHT IS WITHIN REACH. WILL CONTINUE TO MONITOR.
--- NOTE | 2020-02-02 10:05 | NUR ---
PATIENT IS SLEEPING AT THIS MOMENT. O2SAT 100% ON 15L NONREBREATHER MASK. NO SIGNS OF DISTRESS NOTED. IV RUNNING WELL. BED IN LOW POSITION. CALL LIGHT IS WITHIN REACH. WILL CONTINUE TO MONITOR.
--- NOTE | 2020-02-02 10:33 | NUR ---
CHANGED LEADS FOR THE HEART MONITOR. EXPLAINED TO PATIENT WHAT I WAS DOING.
--- NOTE | 2020-02-02 11:14 | NUR ---
PATIENT IS CURRENTLY SLEEPING AT THIS TIME. O2SAT 99% ON 15L NRB MASK. NO SIGNS OF DISTRESS NOTED. BED IN LOW POSITION. CALL LIGHT IS WITHIN REACH. DROPLET AND FALL PRECAUTIONS IN PLACE.
--- NOTE | 2020-02-02 11:42 | NUR ---
HAS TO KEEP REMINDING PATIENT TO PUT NRB MASK ON. WILL CONTINUE TO MONITOR
--- NOTE | 2020-02-02 11:55 | NUR ---
02/02/20 RD FOLLOW UP COMPLETED PLEASE REFER TO NUTRITION ASSESSMENT UNDER CARE ACTIVITY FOR ESTIMATED NUTRITIONAL NEEDS. 1. RECOMMEND HIGH FIBER, MECHANICAL SOFT, CCHO 60GM DIET WITH GLUCERNA ONCE DAILY TOLERATED 2. CONTINUE FLUID RESTRICTION OF 1.5 L/DAY 3. ENCOURAGE INCREASING PO INTAKE 4. PROVIDE PATIENTS FOOD PREFERENCE 5. RD TO FOLLOW-UP 3-5 DAYS, MODERATE RISK ALVARE[address]
--- NOTE | 2020-02-02 11:57 | NUR ---
RECEIVED AN ABG FROM PT AT THIS TIME. RESULTS WERE READ BACK TO DR. CAZARES, NO CHANGES.
[2020-02-02 12:00] VITALS: BP 152/82
--- NOTE | 2020-02-02 12:14 | NUR ---
BLOOD GLUCOSE CHECK: 162. WILL GIVE INSULIN COVERAGE. WILL CONTINUE TO MONITOR. PASSED LUNCH TRAY. VS CHECK.
[2020-02-02] MEDS: INSULIN LISPRO SLIDING SCALE 100 UNITS/ML VIAL SUBQ PRN ×3 (12:18→21:51)
--- NOTE | 2020-02-02 12:29 | NUR ---
GIVEN LACTULOSE PO AND 2 UNITS HUMALOG INSULIN SUBQ IN THE ABDOMEN FOR BLOOD SUGAR OF 162. EXPLAINED MEDICATIONS. PATIENT IS EATING LUNCH. M4GYWPODUBDC IS 88%. EDUCATED PATIENT TO PUT NRB MASK ON WHEN SHE'S OUT OF BREATH AND WAIT FOR A LITTLE WHILE BEFORE SHE STARTS EATING AGAIN. PATIENT STATED OKAY.
[2020-02-02] MEDS ORDERED: FUROSEMIDE 20 MG/2 ML VIAL IVP SCH (13:00)
--- NOTE | 2020-02-02 13:33 | NUR ---
GIVEN LASIX VIA IVP PER MD ORDER. BP IS 147/87, HR IS 76, O2SAT 100% ON 15L NRB MASK. EXPLAINED MEDICATION. WILL CONTINUE TO MONITOR
--- NOTE | 2020-02-02 13:44 | NUR ---
CHANGED WOUND DRESSING. CLOSED WOUND WITH REDDENED SKIN.
--- NOTE | 2020-02-02 13:58 | NUR ---
PATIENT HAS SMALL BM. CLEANSED AND CHANGE WOUND DRESSING. CHANGED BED LINEN AND BLANKET. PATIENT TOLERATED THE ACTIVITY OKAY Addendum: 02/02/20 at 1401 by Princess Jennifer Pollock RN PATIENT HAD SMALL BM. CLEANSED AND CHANGED WOUND DRESSING. CHANGED BED LINEN AND BLANKET. PATIENT TOLERATED THE ACTIVITY OKAY
--- NOTE | 2020-02-02 14:40 | NUR ---
RT IS AT BEDSIDE
--- NOTE | 2020-02-02 15:30 | NUR ---
PATIENT IS A LITTLE LETHARGIC BUT NODS TO ANSWER WHEN QUESTIONS IS ASKED.
[2020-02-02 16:00] VITALS: BP 132/65
--- NOTE | 2020-02-02 16:24 | NUR ---
VITAL SIGNS CHECK, WNL. BLOOD GLUCOSE CHECK: 182. WILL GIVE INSULIN COVERAGE. GIVEN LACTULOSE PO. EXPLAINED MEDICATION. WILL CONTINUE TO MONITOR.
--- NOTE | 2020-02-02 16:26 | NUR ---
PATIENT IS MORE ALERT AT THIS TIME. TALKING ON THE PHONE. NO SIGNS OF DISTRESS NOTED. WILL CONTINUE TO MONITOR.
--- NOTE | 2020-02-02 17:25 | NUR ---
GIVEN INSULIN 2 UNITS SUBQ IN THE ABDOMEN. EMPTIED MORALES CATHETER. OUTPUT OF 1350 ML CLEAR, YELLOW URINE. . NO BM. WILL CONTINUE TO MONITOR.
--- NOTE | 2020-02-02 17:40 | NUR ---
PATIENT IS EATING AT THIS TIME. O2SAT 89%. WILL CONTINUE TO MONITOR
--- NOTE | 2020-02-02 19:12 | NUR ---
ENDORSED PATIENT TO THE PAPER BAG INSPECTOR NURSE FOR CONTINUITY OF CARE. PATIENT IS IN STABLE CONDITION.
--- NOTE | 2020-02-02 19:15 | NUR ---
RECEIVED BEDSIDE REPORT FROM AM SHIFT RN FOR PT'S CONTINUITY OF CARE. PT IS ALERT, AWAKE, ON FIRE OFFICER, ON O2 NON-REBREATHER MASK 15L, HAS LEFT WRIST 24G NS AT 10ML/HR, ON FLUID RESTRICTION OF 1.5L/DAY, NO DISTRESS NOTED, CURRENT O2 SATURATION IS 95% SEEN ON THE MONITOR. SAFETY MEASURES AND COVID PROTOCOL IN PLACE. WILL MONITOR PT THROUGHOUT SHIFT.
[2020-02-02 20:00] VITALS: BP 136/66
--- NOTE | 2020-02-02 21:45 | NUR ---
VS CHECKED AND CHARTED. BLOOD GLUCOSE CHECKED AND CHARTED. ADMINISTERED SUBQ INSULIN PER SLIDING SCALE PROTOCOL. PT EDUCATION GIVEN, PT VERBALIZED UNDERSTANDING. PATIENT HAD BM X1 SMEAR. CLEANED, CHANGED AND REPOSITIONED PT. PT TOLERATED ACTIVITY. WILL CONTINUE TO MONITOR PT.
--- NOTE | 2020-02-02 23:00 | NUR ---
PT ASLEEP WITH NO SIGNS OF RESPIRATORY DISTRESS. O2 SAT 100%. WILL CONTINUE TO MONITOR PT.
[2020-02-03 00:17] VITALS: BP 128/58
--- NOTE | 2020-02-03 00:30 | NUR ---
VS CHECKED AND CHARTED. PT ASLEEP, WOKE UP AND DENIES ANY PAIN. PT'S NEEDS MET. PT WENT BACK TO SLEEP. WILL CONTINUE TO MONITOR PT.
--- NOTE | 2020-02-03 02:00 | NUR ---
PT ASLEEP WITH NO SIGNS OF RESPIRATORY DISTRESS OR DISCOMFORT. WILL CONTINUE TO MONITOR PT.
[2020-02-03 04:00] VITALS: BP 136/58
--- NOTE | 2020-02-03 04:30 | NUR ---
VS CHECKED AND CHARTED. PT ASLEEP, WOKE UP, DENIES ANY PAIN. WILL CONTINUE TO MONITOR PT.
[2020-02-03] MEDS: BLOOD GLUCOSE MONITORING 1 DEV DEV FS SCH ×4 (05:30→21:21)
--- NOTE | 2020-02-03 05:30 | NUR ---
BLOOD GLUCOSE CHECKED AND CHARTED. PT'S LINEN CHANGED, GLORIA AND MORALES CATH CARE GIVEN. PT TOLERATED ACTIVITY WELL. WILL CONTINUE TO MONITOR PT.
[2020-02-03 06:02] LABS: BASOPHILS % (AUTO) 0.4 % (0.0-2.0); EOSINOPHILS # (AUTO) 0.1 K/uL (0-0.4); EOSINOPHILS % (AUTO) 0.6 % (0.0-4.0); HEMATOCRIT 31.1 % (36-48); HEMOGLOBIN 9.8 g/dL (12.0-16.0); LYMPHOCYTES # (AUTO) 1.1 K/uL (2.5-16.5); LYMPHOCYTES % (AUTO) 10.2 % (20.5-51.1); MEAN CORPUSCULAR HEMOGLOBIN 28 pg (27-31); MEAN CORPUSCULAR HGB CONC 32 g/dL (33-37); MEAN CORPUSCULAR VOLUME 89.5 fL (80-94); MONOCYTES # (AUTO) 0.7 K/uL (0.8-1.0); NEUTROPHILS # (AUTO) 8.5 K/uL (1.8-7.7); NEUTROPHILS % (AUTO) 81.8 % (42.2-75.2); PLATELET COUNT (AUTO) 478 K/uL (140-450); RED BLOOD CELL COUNT(AUTO) 3.47 MIL/uL (4.20-5.40); RED CELL DISTRIBUTION WIDTH 16.1 % (11.6-13.7); WHITE BLOOD COUNT (AUTO) 10.4 K/uL (4.8-10.8)
--- NOTE | 2020-02-03 06:33 | NUR ---
PT ASLEEP WITH NO SIGNS OF RESPIRATORY DISTRESS OR DISCOMFORT. PT SATURATION AT 97% ON 15L O2 VIA NON REBREATHER. SAFETY MEASURES IN PLACE, CALL LIGHT IS WITHIN REACH, ISOLATION PRECAUTION IN PLACE. WILL ENDORSE TO AM SHIFT RN FOR PT'S CONTINUITY OF CARE.
[2020-02-03 07:00] LABS: ALBUMIN 1.9 g/dL (3.4-5.0); ANION GAP 5.9 (8-16); CARBON DIOXIDE 35.7 mmol/L (21-32); CREATININE 1.3 mg/dL (0.6-1.3); POTASSIUM 4.6 mmol/L (3.5-5.1); TOTAL BILIRUBIN 0.4 mg/dL (0.0-1.0)
--- NOTE | 2020-02-03 07:16 | NUR ---
received bedside report from PM RN pt awake in bed pt on monitors Heart Rate WNL. SPO2 99% no respiratory distress noted. all safety measures are in place will continue to monitor.
[2020-02-03 08:05] VITALS: BP 137/69
[2020-02-03] MEDS: ASPIRIN 81 MG TAB.CHEW PO SCH (08:10)
[2020-02-03] MEDS: LISINOPRIL 20 MG TAB PO SCH (08:10)
[2020-02-03] MEDS: HYDROCHLOROTHIAZIDE 25 MG TAB PO SCH (08:11)
[2020-02-03] MEDS: LACTULOSE 20 GM/30 ML UDC PO SCH ×3 (08:11→17:00)
[2020-02-03] MEDS: METOPROLOL SUCCINATE 50 MG TABER PO SCH (08:11)
[2020-02-03] MEDS: ASCORBIC ACID 500 MG TAB PO SCH (08:11)
[2020-02-03] MEDS: ZINC SULF 220 MG CAP PO SCH (08:11)
[2020-02-03] MEDS: FUROSEMIDE 20 MG/2 ML VIAL IVP SCH (08:12)
[2020-02-03] MEDS: ENOXAPARIN 40 MG/0.4 ML SYR SUBQ SCH (08:15)
--- NOTE | 2020-02-03 09:15 | NUR ---
FREQUENT ROUNDING ON PT PT AWAKE IN BED PT ON THE PHONE WITH FAMILY CONTINUOS PULSE OX ON PT
[2020-02-03] MEDS: methylPREDNISolone SS 40 MG/ML VIAL IVP SCH ×2 (09:55→20:31)
--- NOTE | 2020-02-03 11:25 | NUR ---
FREQUENT ROUNDING ON PT PT AWAKE IN BED PT APPEARS STABLE AND IN NO APPARENT DISTRESS ALL SAFETY MEASURES ARE IN PLACE WILL CONTINUE TO MONITOR
--- NOTE | 2020-02-03 11:50 | NUR ---
SACRAL LOCALIZES PUSTULES DERMATITIS 4X2CM REPORTED TO DR. CAZARES, ORDER OBTAINED.
--- NOTE | 2020-02-03 12:10 | NUR ---
FINGERSTICK GLUCOSE 184. ADMINISTERED 2 UNITS INSULIN PER SLIDING SCALE. PT AWAKE IN BED PT WILL START EATING LUNCH. PT SITTING UP APPEARS STABLE AND NO SIGNS OF DISTRESS. WILL CONTINUE TO MONITOR
[2020-02-03 12:22] VITALS: BP 147/64
[2020-02-03] MEDS: INSULIN LISPRO SLIDING SCALE 100 UNITS/ML VIAL SUBQ PRN ×3 (12:22→22:17)
[2020-02-03] MEDS: TRIAMCINOLONE 0.5% CRM 15 GM TUBE TP SCH (13:00)
--- NOTE | 2020-02-03 13:35 | NUR ---
FREQUENT ROUNDING ON PT PT AWAKE IN BED PT APPEARS STABLE AND IN NO APPARENT DISTRESS. ALL SAFETY MEASURES ARE IN PLACE WILL CONTINUE TO MONITOR. PT ON CONTINUOS SPO2 MONITORING AND TELE MONITORING
--- NOTE | 2020-02-03 15:30 | NUR ---
TRANSFERRED PT TO [facility] PT TOLERATED TRANSFER WELL IN BED. PT AMBULATED FROM BED TO BED. WITH LITTLE DIFFICULTY PT SAT AT END OF BED SUPERVISED FOR ABOUT 5 MINUTES. PT VITALS STABLE 147/65 SPO2 98% ON 15L NON REBREATHER. PT APPEARS STABLE AND IN NO APPARENT DISTRESS. ALL PERSONAL BELONGINGS BROUGHT WITH PATIENT PT PLACED ON CONTINUOS SPO2 MONITORING. WILL CONTINUE TO MONITOR.
[2020-02-03 16:00] VITALS: BP 126/62
--- NOTE | 2020-02-03 17:34 | NUR ---
FREQUENT ROUNDING ON PT PT AWAKE IN BED ON TELE MONITORING SPO2 MONITORING IN PLACE PT APPEARS STABLE AND IN NO APPARENT DISTRESS ALL SAFETY MEASURES ARE IN PLACE WILL CONTINUE TO MONITOR
--- NOTE | 2020-02-03 18:12 | NUR ---
FINGERSTICK GLUCOSE 264 ADMINISTERED 6 UNITS INSULIN PER SLIDING SCALE. PT AWAKE IN BED ON TELE MONITORING AND CONTINUOS SPO2 MONITORING. ALL SAFETY MEASURES ARE IN PLACE WILL CONTINUE TO MONITOR
--- NOTE | 2020-02-03 19:35 | NUR ---
ENDORSED BEDSIDE REPORT TO PM RN PATIENT AWAKE IN BED PT APPEARS STABLE AND IN NO APPARENT DISTRESS. ALL SAFETY MEASURES ARE IN PLACE. PT ON SPO2 CONTINUOS 02 MONITORING. PT ON TELE MONITORING ALL SAFETY MEASURES ARE IN PLACE
--- NOTE | 2020-02-03 19:38 | NUR ---
RECEIVED PATIENT, ON TELE MONITOR AWAKE, ALERT OX 3, PT BEDREST AT THIS TIME. SPO2 97% ON 15L NON REBREATHER MASK. PT APPEARS STABLE AND IN NO APPARENT DISTRESS. WITH IV ON THE LEFT WRIST G 22 NS AT TKO. ALL PERSONAL BELONGINGS BROUGHT WITH PATIENT PT PLACED ON CONTINUOS SPO2 MONITORING. WILL CONTINUE TO MONITOR.
[2020-02-03 20:00] VITALS: BP 132/61
--- NOTE | 2020-02-03 20:00 | NUR ---
PT CHECKED IVF, PT FLUSHED, NOT PATENT, PT FEELS PAIN IN HER PRESENT IVF; D/C CANNULA REMOVED INTACT. INSERTED ANOTHER LINE, ON THE RIGHT HAND G 24, PATENT AND INTACT.
--- NOTE | 2020-02-03 21:54 | NUR ---
REPOSITIONED PATIENT TO HER SIDE W/ PILLOWS; PT GIVEN A DRINK OF WATER, AND EARLIER WAS GIVEN A SNACK AFTER THE INSULIN SHOT.
--- NOTE | 2020-02-03 22:00 | NUR ---
CHECKED ON PT HER BP WAS 159/74; HR 70; 02 SAT 97; DENIES PAIN. PT ASKED IF SHE IS OK. GIVEN HER INCENTIVE SPIROMETRY PT TRYING TO DO DEEP BREATHING EXERCISES.PT USED THE INCENTIVE SPIROMETRY DEVICE, WILL MONITOR BP.
--- NOTE | 2020-02-03 22:13 | NUR ---
DAUGHTER MELIDA WANTED TO KNOW UPDATE ON MOTHER, CALLED HER UP AT HER CELL NO. NURSING CARE UPDATED AND INFORMED HER THAT WE ARE MONITORING HER BP.
--- NOTE | 2020-02-03 22:15 | NUR ---
INFORMED DR. SIMMS RE: BP RETOOK IT AND PT'S BP 161/ 79; HR 73; DR. SIMMS SAID TO TO MONITOR EVERY 15 MINS.
--- NOTE | 2020-02-03 22:17 | NUR ---
GIVEN THE INSULIN- SQ LATE INSERTED AN IVF ON HER, AND CHARGE NURSE, TRIP HELPED ME W/ THE SUPPLIES. INSULIN WAS GIVEN LATE BECAUSE OF PATIENT'S BP WAS UNSTABLE, AND PT RESTLESS.
--- NOTE | 2020-02-03 22:30 | NUR ---
BP= 155/80 ' HR 73; PT SLEEPING AT THIS TIME
--- NOTE | 2020-02-03 22:45 | NUR ---
BP 157/73(104) HR 72; 99% 02 SAT
--- NOTE | 2020-02-03 23:00 | NUR ---
PT'S BP 157/75 HR 74
--- NOTE | 2020-02-03 23:26 | NUR ---
DR. SIMMS INFORMED ON THE BP READING EVERY 15 MINS TAND HE SAID TO INFORM HIM IF SBP ABOVE 160'S.
[2020-02-04] VITALS (7 sets, daily range): BP systolic 117–182; BP diastolic 52–85
[2020-02-04] MEDS ORDERED: hydrALAZINE 20 MG/ML VIAL IVP SCH
--- NOTE | 2020-02-04 | NUR ---
PT'S BP INCREASED TO 182/85 (135) ; 67 HR; 97% O2. DR. SIMMS INFORMED AND SAID HE WILL ORDER MEDS
[2020-02-04] MEDS: TRIAMCINOLONE 0.5% CRM 15 GM TUBE TP SCH ×2 (00:16→13:12)
--- NOTE | 2020-02-04 00:42 | NUR ---
ADMINISTERED HRDRALAZINE INITIAL BP BEFORE ADMINISTRATION CHECKED : 165/73; 66 HR
--- NOTE | 2020-02-04 01:00 | NUR ---
CHANGED CHUX, AND PLACED WOUND CARE TX ON SACRAL WOUND.
--- NOTE | 2020-02-04 01:46 | NUR ---
REASSESSMENT OF BP AFTER HYDRALAZINE 148/65; 70 HEART RATE; 99% O2
--- NOTE | 2020-02-04 02:00 | NUR ---
PT TURNED AGAIN AND REPOSITIONED TO HER SIDE. EMPTIED THE MORALES CATHETER BAG
--- NOTE | 2020-02-04 04:00 | NUR ---
VITAL SIGNS TAKEN AND TURNED PT AGAIN TO ONE SIDE. HEALTH EDUCATION TO MOVING FROM SIDE TO SIDE BY SELF TO IMPROVE LUNG FUNCTION.
[2020-02-04] MEDS: BLOOD GLUCOSE MONITORING 1 DEV DEV FS SCH ×4 (06:29→21:37)
[2020-02-04] MEDS: INSULIN LISPRO SLIDING SCALE 100 UNITS/ML VIAL SUBQ PRN ×4 (06:32→21:41)
--- NOTE | 2020-02-04 07:02 | NUR ---
PT AWAKE, ALERT,ORIENTED X 3, PT NOT IN RESPIRATORY DISTRESS AND NO SOB NOTED, KEEP WATCH. STILL NON REBREATHER MASK AT 15 LPM. PT. ONLY ABLE TO TURN FROM SIDE TO SIDE OF THE BED LAST NIGHT. WILL ENDORSE TO NEXT SHIFT.
--- NOTE | 2020-02-04 07:10 | NUR ---
RECEIVED REPORT FROM NIGHT NURSE, PT IS IN STABLE CONDITION, PT IS ON NON REBREATHER MASK 15LPM. SAFETY MEASURES IN PLACE, CALL LIGHT WITH IN REACH. WILL CONTINUE TO MONITOR.
--- NOTE | 2020-02-04 07:55 | NUR ---
PT LEFT THE ROOM FOR CT HEAD WITHOUT CONTRAST.
--- NOTE | 2020-02-04 08:10 | NUR ---
PT RETURNED TO ROM NOW AND PT IS STABLE.
--- NOTE | 2020-02-04 09:00 | NUR ---
MEDICATIONS DUE GIVEN AND PT IS ALERT AND STABLE. CHECK VITAL SIGNS PRIOR TO MEDICATION. BP 136/59 NC; 81. WILL CONTINUE TO MONITOR.
[2020-02-04] MEDS: LACTULOSE 20 GM/30 ML UDC PO SCH ×3 (09:05→17:07)
[2020-02-04] MEDS: ASCORBIC ACID 500 MG TAB PO SCH (09:08)
[2020-02-04] MEDS: ZINC SULF 220 MG CAP PO SCH (09:08)
[2020-02-04] MEDS: LISINOPRIL 20 MG TAB PO SCH (09:08)
[2020-02-04] MEDS: METOPROLOL SUCCINATE 50 MG TABER PO SCH (09:09)
[2020-02-04] MEDS: HYDROCHLOROTHIAZIDE 25 MG TAB PO SCH (09:09)
[2020-02-04] MEDS: methylPREDNISolone SS 40 MG/ML VIAL IVP SCH ×2 (09:10→21:00)
[2020-02-04] MEDS: ASPIRIN 81 MG TAB.CHEW PO SCH (09:10)
[2020-02-04] MEDS: FUROSEMIDE 20 MG/2 ML VIAL IVP SCH (09:12)
[2020-02-04] MEDS: ENOXAPARIN 40 MG/0.4 ML SYR SUBQ SCH (09:13)
[2020-02-04 09:41] LABS: BASOPHILS % (AUTO) 0.3 % (0.0-2.0); HEMATOCRIT 33.2 % (36-48); HEMOGLOBIN 10.6 g/dL (12.0-16.0); LYMPHOCYTES % (AUTO) 9.4 % (20.5-51.1); MEAN CORPUSCULAR HEMOGLOBIN 28 pg (27-31); MEAN CORPUSCULAR HGB CONC 32 g/dL (33-37); MEAN CORPUSCULAR VOLUME 88.8 fL (80-94); MONOCYTES # (AUTO) 0.3 K/uL (0.8-1.0); MONOCYTES % (AUTO) 3.1 % (1.7-9.3); NEUTROPHILS # (AUTO) 9.3 K/uL (1.8-7.7); NEUTROPHILS % (AUTO) 87.2 % (42.2-75.2); PLATELET COUNT (AUTO) 502 K/uL (140-450); RED BLOOD CELL COUNT(AUTO) 3.74 MIL/uL (4.20-5.40); RED CELL DISTRIBUTION WIDTH 16.4 % (11.6-13.7); WHITE BLOOD COUNT (AUTO) 10.6 K/uL (4.8-10.8)
[2020-02-04 10:32] LABS: LACTATE DEHYDROGENASE 251 U/L (81-234)
--- NOTE | 2020-02-04 11:15 | NUR ---
DR CAZARES ORDERED CT ANGIO CHEST WITH CONTRAST AND CONSENT GIVEN BY HER GRAND DAUGHTER THROUGH TELEPHONE CALL TREMAYNE TINEO [phone]. WILL CONTINUE TO MONITOR.
--- NOTE | 2020-02-04 11:30 | NUR ---
CHECK BLOOD SUGAR 237MG/DL AND GAVE INSULIN OF 4 UNITS. WILL CONTINUE TO MONITOR.
--- NOTE | 2020-02-04 12:42 | NUR ---
DR CHIOMA LOCO PICC INSERTION AND CONSENT GIVEN BY HER GRAND DAUGHTER MELIDA TINEO THROUGH TELEPHONE CONSENT. [phone]. EXPLAINED THE PROCEDURE AND VERBALIZES UNDERSTANDING.
[2020-02-04 13:57] LABS: ANION GAP 7.5 (8-16); CREATININE 1.3 mg/dL (0.6-1.3); POTASSIUM 4.5 mmol/L (3.5-5.1)
[2020-02-04] MEDS ORDERED: SENNA 8.6 MG TAB PO SCH (15:00)
[2020-02-04] MEDS ORDERED: BISACODYL 5 MG TABEC PO SCH (15:00)
--- NOTE | 2020-02-04 16:30 | NUR ---
BLOOD GLUCOSE MONITORING DONE 175MG/DL AND GAVE 2 UNITS OF INSULIN. PT IS ON 10L OXYMIZER, WILL CONTINUE TO MONITOR.
--- NOTE | 2020-02-04 16:41 | NUR ---
PT PREVIOUSLY ON 15L NON-REBREATHER SAT 98%. CHANGED TO 10L OXYMIZER @ 16:15 PT SAT 94%. PT TOLERATING CHANGE WELL WITH NO SIGNS OF RESPIRATORY DISTRESS
--- NOTE | 2020-02-04 19:10 | NUR ---
ENDORSED TO NIGHT NURSE PT IS STABLE.
--- NOTE | 2020-02-04 19:15 | NUR ---
RECEIVED BEDSIDE REPORT FROM AM SHIFT RN FOR PT'S CONTINUITY OF CARE. PT IS AAOX4, FAROESE SPEAKING, ON BEDREST, IS ON PENSION FUND MANAGER, ON 10L O2 VIA OXYMIZER, HAS RIGHT HAND 24G SALINE LOCK, ON FLUID RESTRICTION TO 1.5L/DAY, MORALES CATH IN PLACE, PT REQUESTING TO BE CHANGED. SAFETY MEASURES, ISOLATION PRECAUTION, AND CALL LIGHT WITHIN REACH. WILL MONITOR PT THROUGHOUT SHIFT.
--- NOTE | 2020-02-04 20:45 | NUR ---
VS AND BLOOD GLUCOSE CHECKED AND CHARTED, ADMINISTERED INSULIN SUBQ ON LEFT ABD PER SLIDING SCALE PROTOCOL. SOLU-MEDROL IVP NON ADMIN, IV SITE OCCLUDED, AWAITING FOR PICC LINE INSERTION. PT HAD LARGE LOOSE BM, GLORIA CARE AND SPONGE BATH GIVEN, PT TOLERATED IT WELL. SACRAL DRESSING CHANGED. PT MADE COMFORTABLE. PT EDUCATION GIVEN RE: USE OF INCENTIVE SPIROMETER, PT NODDED IN UNDERSTANDING. WILL CONTINUE TO MONITOR PT.
--- NOTE | 2020-02-04 22:30 | NUR ---
PT ASLEEP WITH NO SIGNS OF DISTRESS OR DISCOMFORT. WILL CONTINUE TO MONITOR PT.
[2020-02-05] VITALS: BP 130/66
--- NOTE | 2020-02-05 | NUR ---
VS CHECKED AND CHARTED. PT CALLED TO REQUEST FOR LINEN CHANGE. PT HAD MODERATE AMOUNT OF LOOSE BM. PERFORMED ORAL CARE, GLORIA CARE, MORALES CATH CARE, AND WOUND CARE. PT GIVEN SPONGE BATH, PROTECTED ABD SKIN FOLD WITH INTER DRY DRESSING. TOPICAL MEDICATION NON-ADMIN, MEDICATION NOT AVAILABLE. SACRAL AREA DERMATITIS AREA PROTECTED WITH OPTIFOAM. PT TOLERATED ACTIVITY WELL. PT MADE COMFORTABLE. CALL LIGHT IS WITHIN REACH. SAFETY MEASURES IN PLACE. WILL CONTINUE TO MONITOR PT.
[2020-02-05] MEDS: TRIAMCINOLONE 0.5% CRM 15 GM TUBE TP SCH ×2 (01:00→13:00)
--- NOTE | 2020-02-05 01:45 | NUR ---
CARLOS EDUARDO, PICC LINE RN CALLED TO INFORM THAT HE WILL COME BETWEEN [phone] FOR PICC LINE INSERTION. DAG SPRAYER AWARE.
--- NOTE | 2020-02-05 02:15 | NUR ---
PT ASLEEP WITH NO SIGNS OF DISTRESS OR DISCOMFORT. WILL CONTINUE TO MONITOR PT.
--- NOTE | 2020-02-05 04:00 | NUR ---
PT ASLEEP WITH NO SIGNS OF RESPIRATORY DISTRESS NOTED. OXYMIZER ON. WILL CONTINUE TO MONITOR PT.
[2020-02-05 06:00] VITALS: BP 123/65
--- NOTE | 2020-02-05 06:30 | NUR ---
VS CHECKED AND CHARTED. BLOOD GLUCOSE CHECKED AND CHARTED. ADMINISTERED INSULIN SUBQ PER SLIDING SCALE PROTOCOL. GLORIA CARE GIVEN, SECURED MORALES CATH WITH SECUREMENT DEVICE. RT PERFORMED ABG AT BEDSIDE FOR 0600 DRAW. PT DENIES ANY PAIN OR DISTRESS. TRIED TO WEAN PT FROM OXYMIZER 10L, WITH 7L PT SATURATED AT 95%. NOTIFIED MD KAYLENE RECOMMENDED TO TALK TO RT FOR WEANING OFF OXYGEN. MD SUGGESTED TO TRY 6L FACE MASK. PT MADE COMFORTABLE. SAFETY MEASURES, ISOLATION PRECAUTION, AND OXYMIZER 10L IN PLACE. WILL ENDORSE PT TO AM SHIFT RN FOR PT'S CONTINUITY OF CARE.
[2020-02-05] MEDS: BLOOD GLUCOSE MONITORING 1 DEV DEV FS SCH ×4 (06:45→21:02)
[2020-02-05] MEDS: INSULIN LISPRO SLIDING SCALE 100 UNITS/ML VIAL SUBQ PRN ×4 (06:46→21:25)
--- NOTE | 2020-02-05 07:10 | NUR ---
RECEIVED REPORT FROM NIGHT NURSE PT IS STABLE AND ON OXYMIZER 10LPM. SAFETY MEASURES IN PLACE AND CALL LIGHT WITHIN REACH. WILL CONTINUE TO MONITOR.
[2020-02-05 08:00] VITALS: BP 119/49
[2020-02-05 08:03] LABS: BASOPHILS % (AUTO) 0.6 % (0.0-2.0); EOSINOPHILS # (AUTO) 0.1 K/uL (0-0.4); EOSINOPHILS % (AUTO) 1.2 % (0.0-4.0); HEMATOCRIT 30.1 % (36-48); HEMOGLOBIN 9.6 g/dL (12.0-16.0); LYMPHOCYTES # (AUTO) 1.5 K/uL (2.5-16.5); LYMPHOCYTES % (AUTO) 18.6 % (20.5-51.1); MEAN CORPUSCULAR HEMOGLOBIN 28 pg (27-31); MEAN CORPUSCULAR HGB CONC 32 g/dL (33-37); MEAN CORPUSCULAR VOLUME 88.8 fL (80-94); MONOCYTES # (AUTO) 0.7 K/uL (0.8-1.0); MONOCYTES % (AUTO) 8.5 % (1.7-9.3); NEUTROPHILS # (AUTO) 5.7 K/uL (1.8-7.7); NEUTROPHILS % (AUTO) 71.1 % (42.2-75.2); PLATELET COUNT (AUTO) 441 K/uL (140-450); RED BLOOD CELL COUNT(AUTO) 3.39 MIL/uL (4.20-5.40); RED CELL DISTRIBUTION WIDTH 16.1 % (11.6-13.7)
[2020-02-05] MEDS: ASPIRIN 81 MG TAB.CHEW PO SCH (08:41)
[2020-02-05] MEDS: ZINC SULF 220 MG CAP PO SCH (08:42)
[2020-02-05] MEDS: ASCORBIC ACID 500 MG TAB PO SCH (08:42)
[2020-02-05] MEDS: ENOXAPARIN 40 MG/0.4 ML SYR SUBQ SCH (08:43)
[2020-02-05] MEDS: HYDROCHLOROTHIAZIDE 25 MG TAB PO SCH (08:43)
[2020-02-05 08:51] LABS: ANION GAP 9.3 (8-16); CARBON DIOXIDE 34.1 mmol/L (21-32); CREATININE 1.3 mg/dL (0.6-1.3); POTASSIUM 4.4 mmol/L (3.5-5.1); TOTAL BILIRUBIN 0.3 mg/dL (0.0-1.0)
[2020-02-05] MEDS: LACTULOSE 20 GM/30 ML UDC PO SCH (09:00)
[2020-02-05] MEDS: methylPREDNISolone SS 40 MG/ML VIAL IVP SCH ×2 (09:00→21:26)
[2020-02-05] MEDS ORDERED: SENNA 8.6 MG TAB PO SCH (09:00)
[2020-02-05] MEDS: METOPROLOL SUCCINATE 50 MG TABER PO SCH (09:00)
[2020-02-05] MEDS: LISINOPRIL 20 MG TAB PO SCH (09:00)
[2020-02-05] MEDS: FUROSEMIDE 20 MG/2 ML VIAL IVP SCH (09:00)
--- NOTE | 2020-02-05 09:00 | NUR ---
MEDICATIONS DUE GIVEN , PT WAS STABLE AND NO DISTRESS NOTED, VITAL SIGNS CHECK PRIOR TO MEDICATIONS. BP; 119/49, OR; 60. SAFETY MEASURES IN PLACE, CALL LIGHT WITHIN REACH. WILL CONTINUE TO MONITOR.
--- NOTE | 2020-02-05 10:00 | NUR ---
POWER PICC LINE INSERTION AT THIS TIME. PICC LINE INSERTED BY KAYLA MICHAEL RN. BP; 111/62. PT IS STABLE AND DENIES PAIN. WILL CONTINUE TO MONITOR.
--- NOTE | 2020-02-05 10:45 | NUR ---
CHEST XRAY DONE AT THIS TIME AND PICC LINE DOUBLE LUMEN IS OKAY TO USE.PT IS STABLE. WILL CONTINUE TO MONITOR.
[2020-02-05 12:00] VITALS: BP 136/65
--- NOTE | 2020-02-05 12:30 | NUR ---
PT WAS OUT FOR CT ANGIO CHEST WITH CONTRAST. PT IS STABLE.
--- NOTE | 2020-02-05 13:06 | NUR ---
PT IS BACK IN HER ROOM , PT IS STABLE, DENIES PAIN AND NO DISTRESS NOTED. WILL CONTINUE TO MONITOR.
--- NOTE | 2020-02-05 14:20 | NUR ---
SATURATION 100% ON SUPPLEMENTAL OXYGENT AT 10 LPM VIA OXYMIZER CHANGED OXYGEN DEVICE TO NASAL CANNULA AT 5 LPM KIM/IAN NOTIFIED WORKING SECOND HAND TO MONITOR
--- NOTE | 2020-02-05 14:28 | NUR ---
SATURATION 95% ON SUPPLEMENTAL OXYGEN AT 5 LPM VIA NC TITRATED FIO2 TO 4 LPM FERRYBOAT PILOT TO MONITOR
--- NOTE | 2020-02-05 14:30 | NUR ---
PT WAS EVALUATED BY RT AND WAS PLACE ON NC 4LPM AT 945 O2 SATURATION. PT IS STABLE.
[2020-02-05 16:00] VITALS: BP 134/65
--- NOTE | 2020-02-05 16:40 | NUR ---
BLOOD GLUCOSE MONITORING DONE. 217MG/DL WITH INSULIN COVERAGE OF 4 UNITS. PT IS STABLE. CHANGE WOUND DRESSING. SAFETY MEASURES IN PLACE AND CALL LIGHT WITH IN REACH. WILL CONTINUE TO MONITOR.
--- NOTE | 2020-02-05 19:05 | NUR ---
ENDORSED PT TO NIGHT NURSE, PT IS STABLE.
--- NOTE | 2020-02-05 19:22 | NUR ---
RECEIVED REPORT FORM KIM SOSA DAYSHIFT NURSE AT BEDSIDE FOR CONTINUITY OF CARE, PT IN STABLE CONDITION.
[2020-02-05 20:00] VITALS: BP 119/70
--- NOTE | 2020-02-05 21:00 | NUR ---
PT IN LOW BED WITH ALL FALLS PRECAUTIONS IN PLACE. N/C IN PLACE AND RUNNING AT 5 LITERS. PT PICC LINE INTACT AND BOTH LINES WERE FLUSHED PATENT. REPARATIONS EVEN AND UNLABORED, HOWEVER LUNG SOUNDS ARE DIMINISHED.V/S FOLLOWS: T 98.2 P 76 R 20 B/P 119/70 02 92% WITH 5 LITERS VIA N/C. PT ATE ABOUT 75% OF HER MEAL. FINGERSTICK IS 248, PT GIVEN 4 UNITS OF HUMALOG COVERAGE. PT ALSO RECEIVED ORDERED MEDICATION OF SOLUMEDROL. PT EDUCATION PROVIDED AT BEDSIDE REGARDING MEDICATION BENEFITS AND SIDE EFFECTS, PT ACKNOWLEDGED UNDERSTANDING. ALL DROPLET AND CONTACT PRECAUTIONS IN PLACE.
[2020-02-06] VITALS: BP 141/67
--- NOTE | 2020-02-06 00:15 | NUR ---
PT IN BED ASLEEP BUT AROUSABLE TO NAME AND LIGHT TOUCH. NO S/S OF PAIN OR DISTRESS NOTED.. V/S FOLLOWS: T 98.4 P 80 R 20 B/P 141/67 02 96% ON 5 LITERS VIA N/C. PT WAS TURNED AND REPOSITIONED IN BED. ORDERED CREAM W/ DRESSING ON FOR SACRAL DERMATITIS INTACT. INTERDRY CLOTH IN ABDOMINAL FOLDS. MORALES CATHETER INTACT AND DRAINING TONG URINE. ALL CONTACT, FALLS AND DROPLET PRECAUTIONS IN PLACE.
[2020-02-06] MEDS: TRIAMCINOLONE 0.5% CRM 15 GM TUBE TP SCH ×2 (01:20→13:00)
--- NOTE | 2020-02-06 01:50 | NUR ---
PT IN BED SLEEPING NO S/S OF PAIN OR DISTRESS NOTED, ALL FALLS, DROPLET AND CONTACT PRECAUTIONS IN PLACE.
[2020-02-06 04:00] VITALS: BP 132/64
--- NOTE | 2020-02-06 04:00 | NUR ---
PT IN BED SLEEPING BUT AROUSABLE TO TOUCH. R UPPER PICC LINE INTACT WELL MORALES CATHETER INTACT AND DRAINING CLOUDY DARK TONG URINE. PT HAS N/C RUNNING AT 5 LITERS. V/S FOLLOWS: T 98.0 P 76 R 20 B/P 132/64 02 94% WITH 5 LITERS VIA N/C. ALL FALLS, DROPLET AND CONTACT PRECAUTIONS IN PLACE. PT HAS NO C/O VOICED AT THIS TIME.
[2020-02-06] MEDS: BLOOD GLUCOSE MONITORING 1 DEV DEV FS SCH ×4 (05:58→21:30)
[2020-02-06] MEDS: INSULIN LISPRO SLIDING SCALE 100 UNITS/ML VIAL SUBQ PRN ×4 (06:08→21:35)
--- NOTE | 2020-02-06 06:30 | NUR ---
PT FINGERSTICK IS 346, PT GIVEN 8 UNITS OF HUMALOG COVERAGE ACCORDING TO S/S. ALL REQUESTED NEEDS ATTENDED BY STAFF.
[2020-02-06 06:46] LABS: BASOPHILS % (AUTO) 0.7 % (0.0-2.0); HEMOGLOBIN 9.9 g/dL (12.0-16.0); LYMPHOCYTES # (AUTO) 0.6 K/uL (2.5-16.5); LYMPHOCYTES % (AUTO) 10.1 % (20.5-51.1); MEAN CORPUSCULAR HEMOGLOBIN 28 pg (27-31); MEAN CORPUSCULAR HGB CONC 32 g/dL (33-37); MONOCYTES # (AUTO) 0.1 K/uL (0.8-1.0); MONOCYTES % (AUTO) 1.4 % (1.7-9.3); NEUTROPHILS # (AUTO) 5.1 K/uL (1.8-7.7); NEUTROPHILS % (AUTO) 87.8 % (42.2-75.2); PLATELET COUNT (AUTO) 421 K/uL (140-450); RED BLOOD CELL COUNT(AUTO) 3.48 MIL/uL (4.20-5.40); RED CELL DISTRIBUTION WIDTH 16.2 % (11.6-13.7); WHITE BLOOD COUNT (AUTO) 5.8 K/uL (4.8-10.8)
[2020-02-06 07:20] LABS: ALBUMIN 2.3 g/dL (3.4-5.0); ANION GAP 7.9 (8-16); CARBON DIOXIDE 32.9 mmol/L (21-32); CREATININE 1.4 mg/dL (0.6-1.3); TOTAL BILIRUBIN 0.2 mg/dL (0.0-1.0)
--- NOTE | 2020-02-06 07:29 | NUR ---
RECEIVED REPORT FROM NIGHT NURSE FOR CONTINUITY OF CARE, PT IS AAOX4, EQUATORIAL GUINEAN SPEAKING, PT IS STABLE, RESPIRATION ARE EVEN AND UNLABORED ON 5L NC 02, PT HAS RIGHT UPPER ARM PICC SALINE LOCK, PT HAS CONTACT DERMITIS ON SACRAL AND INTERDRY ON ABD, SAFETY MEASURES IN PLACE, BED IN LOW POSITION, CALL LIGHT WITHIN REACH, WILL CONTINUE TO MONITOR.
[2020-02-06 07:36] LABS: POTASSIUM 5.8 mmol/L (3.5-5.1)
[2020-02-06 08:00] VITALS: BP 151/68
[2020-02-06] MEDS ORDERED: DEXTROSE 50% 50 ML SYR IVP SCH (09:00)
[2020-02-06] MEDS ORDERED: LISINOPRIL 20 MG TAB PO SCH (09:00)
[2020-02-06] MEDS ORDERED: INSULIN REGULAR, HUMAN 100 UNIT/ML VIAL IVP SCH (09:00)
[2020-02-06] MEDS ORDERED: SODIUM ZIRCONIUM CYCLOSILICATE 10 GM POWD.PACK PO SCH (09:00)
[2020-02-06] MEDS: methylPREDNISolone SS 40 MG/ML VIAL IVP SCH ×2 (09:50→20:52)
[2020-02-06] MEDS: ASPIRIN 81 MG TAB.CHEW PO SCH (09:51)
[2020-02-06] MEDS: METOPROLOL SUCCINATE 50 MG TABER PO SCH (09:52)
[2020-02-06] MEDS: ASCORBIC ACID 500 MG TAB PO SCH (09:53)
[2020-02-06] MEDS: ZINC SULF 220 MG CAP PO SCH (09:53)
[2020-02-06] MEDS: ENOXAPARIN 40 MG/0.4 ML SYR SUBQ SCH (09:55)
[2020-02-06] MEDS: LACTULOSE 20 GM/30 ML UDC PO SCH (09:57)
[2020-02-06] MEDS ORDERED: CALCIUM GLUCONATE 10% 1,000 MG in NACL 0.9% 50 ML IV SCH (10:00)
--- NOTE | 2020-02-06 10:29 | NUR ---
ADMINISTERED SCHEDULED MEDICATION, PT EDUCATION GIVEN, PT VERBALIZED UNDERSTANDING, PT STABLE, EDUCATED PT ON THE USE OF INCENTIVE SPIROMETER, PT TOLERATED WELL, CALL LIGHT WITHIN REACH
[2020-02-06 11:56] LABS: ANION GAP 8.2 (8-16); CARBON DIOXIDE 34.8 mmol/L (21-32); CREATININE 1.6 mg/dL (0.6-1.3)
[2020-02-06 12:00] VITALS: BP 142/58
--- NOTE | 2020-02-06 12:37 | NUR ---
PT RECEIVED 6 UNITS OF HUMALOG FOR BLOOD GLUCOSE OF 260, EDUCATION GIVEN, PT VERBALIZED UNDERSTANDING, PT IS STABLE, CALL LIGHT WITHIN REACH.
--- NOTE | 2020-02-06 13:56 | NUR ---
PT ASLEEP IN BED, PT IS STABLE, RESPIRATIONS ARE EVEN AND LABORED ON 5L NC, CALL LIGHT WITHIN REACH.
--- NOTE | 2020-02-06 14:12 | NUR ---
Hospital Internship Note: Med Surg Culinary Intern Patricia spoke to SW regarding patient's granddaughter's request for verification letter of hospitalization. SW contacted María Terrell [phone] who stated that a verification letter would be needed for parlor for patient Adan Terrell, patient's son. María stated that patient needed to sign a document with the parlor, but was unable to due to medical condition. Verification letter was sent to María Terrell through email: [email or web address]. Patricia was CC'ed in email. [employer] contacted María Terrell to verify if letter was received. María stated that she would forward letter to parlor. No further needs identified.
--- NOTE | 2020-02-06 15:30 | NUR ---
PT ASLEEP IN BED, PT IS STABLE, RESPIRATIONS ARE EVEN AND LABORED ON 5L NC 02, CALL LIGHT WITHIN REACH.
[2020-02-06 16:00] VITALS: BP 143/60
--- NOTE | 2020-02-06 18:00 | NUR ---
PT STABLE IN BED, CALL LIGHT WITHIN REACH.
--- NOTE | 2020-02-06 19:15 | NUR ---
GAVE REPORT TO NIGHT NURSE FOR CONTINUITY OF CARE, PT STABLE.
--- NOTE | 2020-02-06 19:16 | NUR ---
RECEIVED ENDORSEMENT AT BEDSIDE FROM AM SHIFT RN. PATIENT IS IN FOWLERS POSITION IN BED. AWAKE. ABLE TO MAKE NEEDS KNOWN. ON OXGEN VIA NC SATTING AT 95%. RESPIRATION EVEN AND UNLABORED. DENIES PAIN. WITH INDWELLING MORALES CATHETER IN PLACE, BULMARO PICC NOTED. BED ALARM AND LOW BED IN PLACE. DROPLET PRECAUTION OBSERVED AT ALL TIMES. PLAN OF CARE WAS DISCUSSED. CALL LIGHT WITHIN REACH.
[2020-02-06 20:00] VITALS: BP 143/63
--- NOTE | 2020-02-06 20:41 | NUR ---
NO MDI GIVEN AT THIS TIME
--- NOTE | 2020-02-06 20:52 | NUR ---
DUE MEDS GIVEN AD ORDERED. TOLERATED WELL. MED EDUCATION PROVIDED. PATIENT IS RESTING. DENIES PAIN. NO SOB. CALL LIGHT WITHIN REACH. WILL CONTINUE TO MONITOR.
[2020-02-07] VITALS: BP 143/58
[2020-02-07] MEDS: TRIAMCINOLONE 0.5% CRM 15 GM TUBE TP SCH ×2 (00:35→13:00)
--- NOTE | 2020-02-07 00:35 | NUR ---
PATIENT CARE DONE. CLEANSED WITH NSS, PAT DRY, APPLIED TRIAMCINOLONE CREAM TO SACRAL AREA. NO DISCHARGED. COVERED WITH OPTIFOAM DRESSING. PATIENT TOLERATED WELL. NO SOB. DENIES PAIN. LOW BED AND BED ALARM IN PLACE. CALL LIGHT WITHIN REACH. WILL CONTINUE TO MONITOR.
--- NOTE | 2020-02-07 03:38 | NUR ---
PATIENT IS SLEEPING AT THIS TIME. NOT IN ANY ACUTE DISTRESS. CALL LIGHT WITHIN REACH. WILL CONTINUE TO MONITOR.
[2020-02-07 04:00] VITALS: BP 142/64
--- NOTE | 2020-02-07 05:30 | NUR ---
BLOOD SAMPLE TAKEN FROM BULMARO PICC LINE. PATIENT TOLERATED WELL. NOT IN ANY ACUTE DISTRESS. DENIES PAIN. WILL CONTINUE TO MONITOR.
[2020-02-07 06:15] LABS: BASOPHILS % (AUTO) 0.5 % (0.0-2.0); HEMATOCRIT 28.3 % (36-48); LYMPHOCYTES # (AUTO) 0.8 K/uL (2.5-16.5); LYMPHOCYTES % (AUTO) 8.4 % (20.5-51.1); MEAN CORPUSCULAR HEMOGLOBIN 28 pg (27-31); MEAN CORPUSCULAR HGB CONC 32 g/dL (33-37); MEAN CORPUSCULAR VOLUME 88.9 fL (80-94); MONOCYTES # (AUTO) 0.3 K/uL (0.8-1.0); MONOCYTES % (AUTO) 2.6 % (1.7-9.3); NEUTROPHILS # (AUTO) 8.8 K/uL (1.8-7.7); NEUTROPHILS % (AUTO) 88.5 % (42.2-75.2); PLATELET COUNT (AUTO) 356 K/uL (140-450); RED BLOOD CELL COUNT(AUTO) 3.19 MIL/uL (4.20-5.40); RED CELL DISTRIBUTION WIDTH 16.1 % (11.6-13.7); WHITE BLOOD COUNT (AUTO) 9.9 K/uL (4.8-10.8)
[2020-02-07] MEDS: BLOOD GLUCOSE MONITORING 1 DEV DEV FS SCH ×4 (06:21→21:23)
[2020-02-07] MEDS: INSULIN LISPRO SLIDING SCALE 100 UNITS/ML VIAL SUBQ PRN ×4 (06:23→21:23)
[2020-02-07 06:43] LABS: ALBUMIN 2.3 g/dL (3.4-5.0); CREATININE 1.4 mg/dL (0.6-1.3); TOTAL BILIRUBIN 0.2 mg/dL (0.0-1.0)
[2020-02-07 06:55] LABS: ANION GAP 9.5 (8-16); CARBON DIOXIDE 31.5 mmol/L (21-32)
--- NOTE | 2020-02-07 06:57 | NUR ---
GAVE HUMALOG INSULIN 10 UNITS SQ FOR BLOOD SUGAR OF 360. TOLERATED WELL. PATIENT IS RESTING. RESPIRATION EVEN AND UNLABORED. NO SOB. DENIES PAIN. AFEBRILE THE WHOLE SHIFT. KEPT COMFORTABLE. WILL ENDORSE TO AM SHIFT RN FOR CONTINUITY OF CARE.
--- NOTE | 2020-02-07 07:05 | NUR ---
RECEIVED REPORT FROM NIGHT NURSE FOR CONTINUITY OF CARE, PT IS STABLE, PT IS ASLEEP, PT IS ON 5L OXIMIZER OXYGEN, PT IS STABLE, PT HAS RIGHT UA PICC THAT IS SALINE LOCK, PT HAS SACRAL DERMATITIS, PT HAS MORALES CATHETER IN PLACE, BED IN LOW POSITION, SAFETY MEASURES IN PLACE, CALL LIGHT WITHIN REACH.
[2020-02-07 08:00] VITALS: BP 150/69
[2020-02-07] MEDS ORDERED: methylPREDNISolone SS 40 MG/ML VIAL IVP SCH (09:00)
[2020-02-07] MEDS: ENOXAPARIN 40 MG/0.4 ML SYR SUBQ SCH (09:36)
[2020-02-07] MEDS: LACTULOSE 20 GM/30 ML UDC PO SCH (09:38)
[2020-02-07] MEDS: ASPIRIN 81 MG TAB.CHEW PO SCH (09:38)
[2020-02-07] MEDS: METOPROLOL SUCCINATE 50 MG TABER PO SCH (09:39)
[2020-02-07] MEDS: ASCORBIC ACID 500 MG TAB PO SCH (09:40)
[2020-02-07] MEDS: ZINC SULF 220 MG CAP PO SCH (09:40)
--- NOTE | 2020-02-07 09:58 | NUR ---
ADMINISTERED SCHEDULED MEDICATION, EDUCATION GIVEN, PT VERBALIZED UNDERSTANDING, PT EDUCATION ON 10 WAYS TO MANAGE RESPIRATORY SYMPTOMS AT HOME HANDOUT AND EDUCATION GIVEN, REINFORCED TEACHING ON USING INCENTIVE SPIROMETER, PT VERBALIZED UNDERSTANDING, PT STABLE, CALL LIGHT WITHIN REACH.
[2020-02-07] MEDS ORDERED: metFORMIN 500 MG TAB PO SCH (10:15)
[2020-02-07] MEDS ORDERED: metFORMIN 850 MG TAB PO SCH (10:30)
--- NOTE | 2020-02-07 10:40 | NUR ---
ADMINISTERED SCHEDULED MEDICATION, MEDICATION SIDE EFFECT GIVEN, PT VERBALIZED UNDERSTANDING, PT TOLERATED MEDICATION WELL, PT IS STABLE, CALL LIGHT WITHIN REACH.
--- NOTE | 2020-02-07 11:28 | NUR ---
ROUNDING ON PT, PT ASLEEP IN BED, PT IS STABLE, CALL LIGHT WITHIN REACH.
[2020-02-07 12:00] VITALS: BP 144/83
--- NOTE | 2020-02-07 12:25 | NUR ---
ADMINISTERED 8 UNITS OF HUMALOG FOR BLOOD SUGAR OF 313. PT EDUCATION GIVEN, PT VERBALIZED UNDERSTANDING, PT STABLE, CALL LIGHT WITHIN REACH.
--- NOTE | 2020-02-07 14:37 | NUR ---
SAT PT UP IN CHAIR FOR 5 MINUTES, PT DESATURATED TO 88% O2, ENCOURAGED PT TO TAKE DEEP BREATH, DR RODRIGUES INFORMED, PT STABLE, CALL LIGHT WITHIN REACH.
[2020-02-07] MEDS: HYDROCHLOROTHIAZIDE 25 MG TAB PO SCH (14:56)
[2020-02-07] MEDS ORDERED: METHYLPHENIDATE 10 MG TAB PO SCH (15:00)
[2020-02-07] MEDS ORDERED: DOCUSATE SODIUM 100 MG GELCAP PO SCH (15:00)
[2020-02-07] MEDS ORDERED: SENNA 8.6 MG TAB PO SCH (15:00)
--- NOTE | 2020-02-07 15:03 | NUR ---
ADMINISTERED SCHEDULED MEDICATION, MEDICATION SIDE EFFECT GIVEN, PT VERBALIZED UNDERSTANDING, PT IS STABLE, CALL LIGHT WITHIN REACH.
[2020-02-07 16:00] VITALS: BP 146/74
--- NOTE | 2020-02-07 16:22 | NUR ---
02/07/20 RD FOLLOW UP COMPLETED PLEASE REFER TO NUTRITION ASSESSMENT UNDER CARE ACTIVITY FOR ESTIMATED NUTRITIONAL NEEDS. 1. CONTINUE [facility] SOFT CCHO 60GM DIET WITH GLUCERNA ONCE DAILY TOLERATED 2. CONTINUE FLUID RESTRICTION OF 1.5 L/DAY 3. PROVIDE PATIENTS FOOD PREFERENCE 4. RD TO FOLLOW-UP 3-5 DAYS, MODERATE RISK ALVAREZ [address] RD
[2020-02-07] MEDS: metFORMIN 500 MG TAB PO SCH (17:17)
--- NOTE | 2020-02-07 17:26 | NUR ---
ADMINISTERED SCHEDULED MEDICATION, ADMINISTERED 10 UNITS OF HUMALOG FOR BLOOD SUGAR OF 363, PT MEDICATION EDUCATION GIVEN, PT VERBALIZED UNDERSTANDING, PT STABLE, CALL LIGHT WITHIN REACH.
--- NOTE | 2020-02-07 19:05 | NUR ---
GAVE REPORT TO NIGHT NURSE FOR CONTINUITY OF CARE, PT IS STABLE.
--- NOTE | 2020-02-07 19:06 | NUR ---
RECEIVED BEDSIDE REPORT FROM AM SHIFT NURSE WILL. PATIENT IS AWAKE AND ALERT, LEFT SIDE LYING ON BED, NO SOB OR DISTRESS NOTED. ON 5LPM VIA OXIMIZER. IV ACCESS NOTED ON RIGHT UPPER ARM PICC SALINE LOCK. PATENT AND INTACT. MORALES CATHETER IN PLACE, DRAINING WELL. INITIAL ASSESSMENT DONE. PATIENT NOTED WITH INCONTINENT DERMATITIS ON SACRAL AREA. INITIAL ASSESSMENT DONE. BED IN LOW, BED LOCKED. SAFETY MEASURES IN PLACE. CALL LIGHT PLACED WITHIN PATIENT REACH. WILL CONTINUE TO MONITOR PATIENT.
[2020-02-07 20:15] VITALS: BP 146/86
--- NOTE | 2020-02-07 20:30 | NUR ---
SCHEDULED MEDS ADMINISTERED AT THIS TIME. PATIENT STATED THAT TOILET WAS BACKED UP THE WHOLE DAY AND NO ONE CAME IN TO FIX IT. APOLOGIZED TO PATIENT AND CALLED FOR ANOTHER RN TO BRING A BEDSIDE COMMODE AND URINAL. Addendum: 02/07/20 at 2235 by Marisel Dow RN WRONG PATIENT.
--- NOTE | 2020-02-07 21:23 | NUR ---
PATIENT HAD A BLOOD GLUCOSE RESULT OF 292 WITH 6 UNITS OF REGULAR HUMALOG INSULIN ADMINISTERED.
--- NOTE | 2020-02-07 22:30 | NUR ---
ROUNDS DONE. PATIENT RESTING WITH EYES CLOSED. VISIBLE CHEST RISE AND FALL NOTED. CALL LIGHT WITHIN PATIENT REACH. WILL CONTINUE TO MONITOR PATIENT.
[2020-02-08 00:15] VITALS: BP 140/72
--- NOTE | 2020-02-08 00:15 | NUR ---
VITALS TAKEN AT THIS TIME. VISIBLE CHEST RISE AND FALL NOTED. TOLERATING 5LPM VIA OXIMIZER WELL. WILL CONTINUE TO MONITOR PATIENT.
[2020-02-08] MEDS: TRIAMCINOLONE 0.5% CRM 15 GM TUBE TP SCH ×2 (01:05→13:00)
--- NOTE | 2020-02-08 01:07 | NUR ---
WOUND ASSESSMENT DONE. DRESSING CHANGED AND CREAM APPLIED TO INCONTINENT DERMATITIS ON SACRAL AREA.
--- NOTE | 2020-02-08 02:50 | NUR ---
ROUNDS DONE. VISIBLE CHEST RISE AND FALL NOTED. WILL CONTINUE TO MONITOR PATIENT.
[2020-02-08 04:15] VITALS: BP 136/76
[2020-02-08 06:28] LABS: BASOPHILS % (AUTO) 0.2 % (0.0-2.0); EOSINOPHILS % (AUTO) 0.1 % (0.0-4.0); HEMATOCRIT 27.4 % (36-48); HEMOGLOBIN 8.8 g/dL (12.0-16.0); LYMPHOCYTES # (AUTO) 1.8 K/uL (2.5-16.5); LYMPHOCYTES % (AUTO) 17.6 % (20.5-51.1); MEAN CORPUSCULAR HEMOGLOBIN 29 pg (27-31); MEAN CORPUSCULAR HGB CONC 32 g/dL (33-37); MEAN CORPUSCULAR VOLUME 88.8 fL (80-94); MONOCYTES # (AUTO) 0.8 K/uL (0.8-1.0); MONOCYTES % (AUTO) 7.5 % (1.7-9.3); NEUTROPHILS # (AUTO) 7.6 K/uL (1.8-7.7); NEUTROPHILS % (AUTO) 74.6 % (42.2-75.2); PLATELET COUNT (AUTO) 329 K/uL (140-450); RED BLOOD CELL COUNT(AUTO) 3.09 MIL/uL (4.20-5.40); RED CELL DISTRIBUTION WIDTH 16.6 % (11.6-13.7); WHITE BLOOD COUNT (AUTO) 10.2 K/uL (4.8-10.8)
[2020-02-08] MEDS: INSULIN LISPRO SLIDING SCALE 100 UNITS/ML VIAL SUBQ PRN ×4 (06:34→20:41)
[2020-02-08] MEDS: BLOOD GLUCOSE MONITORING 1 DEV DEV FS SCH ×4 (06:34→20:39)
--- NOTE | 2020-02-08 06:36 | NUR ---
PATIENT HAD A BLOOD GLUCOSE OF 152 WITH 2 UNITS OF REGULAR HUMALOG INSULIN GIVEN.
--- NOTE | 2020-02-08 06:57 | NUR ---
WILL ENDORSE TO AM SHIFT NURSE FOR CONTINUITY OF CARE. PATIENT IN STABLE CONDITION. CALL LIGHT WITHIN PATIENT REACH.
--- NOTE | 2020-02-08 07:11 | NUR ---
RECEIVED BEDSIDE REPORT FROM NIGHT NURSE FOR CONTINUITY OF CARE. PT IS AAOX4. RESPIRATIONS EVEN AND UNLABORED BREATHING TO 3L VIA OXIMIZER. R UPPR ARM PICC LINE IS PATENT AND INTACT. PT IS COVID POSITIVE. ISOLATION SIGN AT DOOR. SACRAL DERMATITIS NOTED. MORALES CATH DRAINING YELLOW URINE. SAFETY MEASURES IN PLACE; BED IN LOW POSITION, CALL LIGHT WITHIN REACH. BED ALARM ON. TELE MONITOR ATTACHED. PT IS IN STABLE CONDITION.
[2020-02-08 07:13] LABS: ALBUMIN 2.4 g/dL (3.4-5.0); ANION GAP 6.2 (8-16); CARBON DIOXIDE 34.7 mmol/L (21-32); CREATININE 1.3 mg/dL (0.6-1.3); POTASSIUM 4.9 mmol/L (3.5-5.1); TOTAL BILIRUBIN 0.2 mg/dL (0.0-1.0)
[2020-02-08 08:00] VITALS: BP 141/71
[2020-02-08] MEDS: ZINC SULF 220 MG CAP PO SCH (09:00)
[2020-02-08] MEDS: metFORMIN 500 MG TAB PO SCH ×2 (10:02→18:16)
[2020-02-08] MEDS: ASPIRIN 81 MG TAB.CHEW PO SCH (10:02)
[2020-02-08] MEDS: LACTULOSE 20 GM/30 ML UDC PO SCH (10:03)
[2020-02-08] MEDS: predniSONE 20 MG TAB PO SCH (10:04)
[2020-02-08] MEDS: HYDROCHLOROTHIAZIDE 25 MG TAB PO SCH (10:05)
[2020-02-08] MEDS: SENNA 8.6 MG TAB PO SCH (10:17)
[2020-02-08] MEDS: METOPROLOL SUCCINATE 50 MG TABER PO SCH (10:18)
[2020-02-08] MEDS: ASCORBIC ACID 500 MG TAB PO SCH (10:19)
[2020-02-08] MEDS: ENOXAPARIN 40 MG/0.4 ML SYR SUBQ SCH (10:26)
--- NOTE | 2020-02-08 10:34 | NUR ---
PT'S SCHEDULED MEDS GIVEN. MEDICATION EDUCATION PROVIDED. PT TOLERATED PO MEDS WILL. BP WAS TAKEN; BP: 141/71. SAFETY MEASURES IN PLACE. TELE MONITOR ATTACHED. NO ACUTE DISTRESS NOTED. WILL CONTINUE TO MONITOR.
--- NOTE | 2020-02-08 11:45 | NUR ---
BLOOD SUGAR WAS CHECKED; BGL: 152; 2 UNITS COVERAGE GIVEN. VITAL SIGNS: TEMP: 98.2, BP: 147/79, HR 70, REP: 18. SPOS: 97%. PT IS GETTING READY TO EAT LUNCH. NO DISTRESS NOTED. TELEL MONITOR ATTACHED. SAFETY MEASURES IN PLACE. WILL CONTINUE TO MONITOR.
[2020-02-08 12:00] VITALS: BP 147/79
--- NOTE | 2020-02-08 12:56 | NUR ---
PT HAD A VERY LARGE, LOOSE, BM. ASSISTED ASBESTOS CLOTH INSPECTOR TO CLEAN PT. DRAINED MORALES, 425 ML OF URINE OBSERVED. SAFETY MEASURES IN PLACE. TELE MONITOR ATTACHED. WILL CONTINUE TO MONITOR.
--- NOTE | 2020-02-08 13:00 | NUR ---
TOPICAL CREAM APPLIED TO PERIANIAL AREA. NO DISTRESS NOTED. WILL CONTINUE TO MONITOR SAFETY MEASURES IN PLACE.
--- NOTE | 2020-02-08 14:10 | NUR ---
PT HAD A MEDIUM SIZE, LOOSE. BM CLEANED PT. NO ACUTE DISTRESS NOTED. WILL CONTINUE TO MONITOR.
--- NOTE | 2020-02-08 15:45 | NUR ---
PT'S BGL: 274; 6 UNITS COVERAGE GIVEN. PT'S SCHEDULED MEDICATION DUE GIVEN. PT TOLERATED PO MEDS WELL. MEDICATION EDUCATION PROVIDED. PT'S DINNER TRAY DELIVERED. PT IS NOW EATING DINNER. NO DISTRESS NOTED. WILL CONTINUE TO MONITOR.
[2020-02-08 16:00] VITALS: BP 147/74
[2020-02-08] MEDS: METHYLPHENIDATE 10 MG TAB PO SCH (18:15)
--- NOTE | 2020-02-08 19:30 | NUR ---
RECEIVED BEDSIDE REPORT FROM DAY SHIFT NURSEYELENA FOR CONTINUITY OF CARE. RESPIRATIONS EVEN AND UNLABORED BREATHING TO 3L VIA NC. R UPPR ARM PICC LINE IS PATENT AND INTACT. PT IS COVID POSITIVE. ISOLATION SIGN AT DOOR. SACRAL DERMATITIS NOTED. MORALES CATH DRAINING YELLOW URINE. SAFETY MEASURES IN PLACE; BED IN LOW POSITION, CALL LIGHT WITHIN REACH. BED ALARM ON. WILL CONTINUE TO MONITOR.
--- NOTE | 2020-02-08 19:53 | NUR ---
ENDORSED TO PLATE CORRECTOR NURSE FOR CONTINUITY OF CARE. PT IS IN STABLE CONDITION.
[2020-02-08 20:00] VITALS: BP 146/69
--- NOTE | 2020-02-08 20:43 | NUR ---
BS CHECKED, 296, ADMINISTER INSULIN SLIDING SCALE. PT TOLERATED WELL.
--- NOTE | 2020-02-08 22:22 | NUR ---
PT SLEEPING IN BED COMFORTABLY. NO ACUTE DISTRESS NOTED.
[2020-02-09] VITALS: BP 145/76
--- NOTE | 2020-02-09 00:02 | NUR ---
VS CHECKED, WITHIN PT'S BASELINE. WILL CONTINUE TO MONITOR.
[2020-02-09] MEDS: TRIAMCINOLONE 0.5% CRM 15 GM TUBE TP SCH ×2 (01:12→12:57)
--- NOTE | 2020-02-09 02:08 | NUR ---
PT SLEEPING IN BED COMFORTABLY. NO ACUTE DISTRESS NOTED.
[2020-02-09 04:00] VITALS: BP 137/58
--- NOTE | 2020-02-09 04:02 | NUR ---
VS CHECKED, WITHIN PT'S BASELINE, WILL CONTINUE TO MONITOR.
--- NOTE | 2020-02-09 05:01 | NUR ---
DRAW BLOOD FROM PICC LINE. PT TOLERATED WELL.
[2020-02-09 06:20] LABS: BASOPHILS % (AUTO) 0.4 % (0.0-2.0); EOSINOPHILS # (AUTO) 0.1 K/uL (0-0.4); EOSINOPHILS % (AUTO) 0.6 % (0.0-4.0); HEMOGLOBIN 9.3 g/dL (12.0-16.0); LYMPHOCYTES # (AUTO) 2.1 K/uL (2.5-16.5); LYMPHOCYTES % (AUTO) 21.3 % (20.5-51.1); MEAN CORPUSCULAR HEMOGLOBIN 29 pg (27-31); MEAN CORPUSCULAR HGB CONC 32 g/dL (33-37); MONOCYTES # (AUTO) 0.7 K/uL (0.8-1.0); MONOCYTES % (AUTO) 7.6 % (1.7-9.3); NEUTROPHILS # (AUTO) 6.8 K/uL (1.8-7.7); NEUTROPHILS % (AUTO) 70.1 % (42.2-75.2); PLATELET COUNT (AUTO) 332 K/uL (140-450); RED BLOOD CELL COUNT(AUTO) 3.26 MIL/uL (4.20-5.40); RED CELL DISTRIBUTION WIDTH 16.2 % (11.6-13.7); WHITE BLOOD COUNT (AUTO) 9.7 K/uL (4.8-10.8)
[2020-02-09] MEDS: BLOOD GLUCOSE MONITORING 1 DEV DEV FS SCH ×2 (06:23→11:30)
--- NOTE | 2020-02-09 06:24 | NUR ---
BS CHECKED, 130, NO INSULIN COVERAGE NEEDED.
--- NOTE | 2020-02-09 06:51 | NUR ---
PT IN STABLE CONDITION. WILL ENDORSE PT TO DAY SHIFT NURSE FOR CONTINUOUS CARE.
[2020-02-09 07:14] LABS: ALBUMIN 2.4 g/dL (3.4-5.0); ANION GAP 7.3 (8-16); CARBON DIOXIDE 34.1 mmol/L (21-32); CREATININE 1.1 mg/dL (0.6-1.3); POTASSIUM 5.4 mmol/L (3.5-5.1); TOTAL BILIRUBIN 0.4 mg/dL (0.0-1.0)
--- NOTE | 2020-02-09 07:25 | NUR ---
Received report from pm nurse Paras. Pt asleep in bed, respirations even & nonlabored on O2 @ 4Lpm via n/c as e/b visible regular chest rise and fall. FLACC 0. Call light within reach. Remains on enhanced droplet isolation precautions.
[2020-02-09 08:00] VITALS: BP 126/56
[2020-02-09] MEDS ORDERED: SODIUM ZIRCONIUM CYCLOSILICATE 10 GM POWD.PACK PO SCH (08:00)
[2020-02-09] MEDS ORDERED: INSULIN REGULAR, HUMAN 100 UNIT/ML VIAL IVP SCH (08:15)
[2020-02-09] MEDS ORDERED: DEXTROSE 50% 50 ML SYR IVP SCH (08:15)
[2020-02-09] MEDS: predniSONE 20 MG TAB PO SCH (09:05)
[2020-02-09] MEDS: ZINC SULF 220 MG CAP PO SCH (09:05)
[2020-02-09] MEDS: ASPIRIN 81 MG TAB.CHEW PO SCH (09:05)
[2020-02-09] MEDS: METOPROLOL SUCCINATE 50 MG TABER PO SCH (09:05)
[2020-02-09] MEDS: HYDROCHLOROTHIAZIDE 25 MG TAB PO SCH (09:06)
[2020-02-09] MEDS: metFORMIN 500 MG TAB PO SCH (09:06)
[2020-02-09] MEDS: ASCORBIC ACID 500 MG TAB PO SCH (09:06)
[2020-02-09] MEDS: SENNA 8.6 MG TAB PO SCH (09:07)
[2020-02-09] MEDS: METHYLPHENIDATE 10 MG TAB PO SCH (09:07)
[2020-02-09] MEDS: LACTULOSE 20 GM/30 ML UDC PO SCH (09:08)
--- NOTE | 2020-02-09 09:30 | NUR ---
Pt resting in bed, awake, no c/o discomfort or pain.
[2020-02-09] MEDS: ENOXAPARIN 40 MG/0.4 ML SYR SUBQ SCH (09:43)
[2020-02-09 12:00] VITALS: BP 112/54
[2020-02-09 12:33] LABS: ANION GAP 8.2 (8-16); CARBON DIOXIDE 33.6 mmol/L (21-32); CREATININE 1.2 mg/dL (0.6-1.3); POTASSIUM 4.8 mmol/L (3.5-5.1)
[2020-02-09] MEDS ORDERED: PRED10TA5 PO (14:11)
[2020-02-09] MEDS ORDERED: ASPI-1205 PO (14:21)
[2020-02-09] MEDS ORDERED: ASCO500T45 PO (14:21)
[2020-02-09] MEDS ORDERED: ALBU0.0912 INH (14:21)
[2020-02-09] MEDS ORDERED: ORE25 PO (14:44)
--- NOTE | 2020-02-09 15:15 | NUR ---
ROCAEL NOTIFIED REGARDING PT'S DISCHARGE TO HOME.
--- NOTE | 2020-02-09 15:30 | NUR ---
Spoke to patient's daughter Beverley & notified of discharge order. Confirmed O2 has been delivered at home. 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 Daughter verbalized understanding and states she will come in about 45mins. Patient notified.
--- NOTE | 2020-02-09 15:55 | NUR ---
Mcghee cath discontinued. No bladder distention noted. Instructed patient to report if no urine for 8hours. Right upper arm PICC line discontinued. Catheter intact. Pressure applied to insertion site for 5mins then covered with dry gauze and transparent dressing. No bleeding/swelling noted. Instructed patient to keep dressing at least for 4hr, apply pressure if bleeding is noted. Patient verbalized understanding.
--- NOTE | 2020-02-09 16:45 | NUR ---
Patient discharged to home. Able to amb from bed to wheelchair with supervision. Left unit via wheelchair wearing surgical mask. Daughter Beverley at front for transport. Verbal and written discharge instructions provided to patient and daughter who speaks and understands Maltese well. COVID-19 infection control teachings provided, both verbalized understanding and agree to self-isolate at home. Pt and daughter thanked staff for medical care provided, all belongings with patient, left via private car with portable O2 @ 3Lpm via n/c, stable, no signs of distress.
== END 2020-02-09 16:45 | disposition home or self-care (01) | DRG 720 ==
LOC: MED 20:53 → EEVIPCON 22:37 → MTU 22:37 → MIC 01-25 11:10 → MMU 02-03 15:00
PROVIDERS: ADMIT General Practice; ATTEND General Practice
PROC: 02HV33Z Insertion of Infusion Device into Superior Vena Cava, Percutaneous Approach (ICD-10-PCS; principal; 2020-02-05)
PROC: B548ZZA Ultrasonography of Superior Vena Cava, Guidance (ICD-10-PCS; 2020-02-05)
DX: A41.9 Sepsis, unspecified organism (principal); U07.1 COVID-19; E43 Unspecified severe protein-calorie malnutrition; I21.A1 Myocardial infarction type 2; J96.01 Acute respiratory failure with hypoxia; N17.0 Acute kidney failure with tubular necrosis; G93.41 Metabolic encephalopathy; J11.08 Influenza due to unidentified influenza virus with specified pneumonia; N39.0 Urinary tract infection, site not specified; E11.65 Type 2 diabetes mellitus with hyperglycemia; B96.20 Unspecified Escherichia coli [E. coli] as the cause of diseases classified elsewhere; J12.89 Other viral pneumonia; Z68.41 Body mass index [BMI] 40.0-44.9, adult; I10 Essential (primary) hypertension; Z90.710 Acquired absence of both cervix and uterus; E66.9 Obesity, unspecified; E87.1 Hypo-osmolality and hyponatremia; E87.5 Hyperkalemia; Z79.84 Long term (current) use of oral hypoglycemic drugs; Z79.899 Other long term (current) drug therapy; Z82.49 Family history of ischemic heart disease and other diseases of the circulatory system; E86.0 Dehydration; E78.5 Hyperlipidemia, unspecified
CPT/HCPCS: 36415; 36600; 70450; 71045; 71275; 80048; 80053; 80202; 80305; 81001; 82140; 82550; 82728; 82803; 82948; 83036; 83605; 83615; 83690; 83735; 83880; 84100; 84443; 84484; 85025; 85379; 85610; 85651; 85730; 86140; 87040; 87081; 87086; 87186; 87420; 87804; 93005; 94664; 96365; 96368; 97110; 97116; 97161-GP; 97530; 99291; C1751; J0360; J0456; J0610; J0696; J1644; J1650; J1815; J1940; J2270; J2920; J3370; J3535; J7030; J7042; J7060; J7512; Q0092; Q9967

== ENCOUNTER 2023-01-01 17:12 | Inpatient (IN) | payer MEDICAID, OTHER ==
[~2023-01-01] VITALS: Ht 162.6 cm; Wt 103.4 kg
[~2023-01-01 17:12] MED LIST changes: +ALBU0.0912 INH; -AMLO10TA PO; +ASCO500T95 PO; +ASPI-1205 PO; -ASPI-1822 PO; +HYDR-4004 PO; -LISI-420 PO; +METF-1274 PO; -METF850T PO; +METO50TE2 PO; +PRED10TA5 PO; +SIMV-372 PO
--- NOTE | 2023-01-01 17:15 | NUR ---
KT DENNIS TAKEN TO BED 12
[2023-01-01 17:26] VITALS: BP 161/66
--- NOTE | 2023-01-01 17:37 | NUR ---
67/F BIBA FROM HOME WITH C/O BODY PAIN, CHILLS, AND NUMBNESS TO HANDS AND FEET. PATIENT REPORTS HX OF ANXIETY STATING FEELING ANXIOUS D/T S/S. PER EMS BP ON SCENE 215/70, ON ARRIVAL BP 166/61, DENIES CP, SOB, PATIENT PLACED ON BEDSIDE CARDIAC MONTIOR, DR. CASTELLANO AWARE OF PATIENT ON ARRIVAL.
[2023-01-01] MEDS ORDERED: NACL 0.9% 1,000 ML IV ONE (18:20)
--- NOTE | 2023-01-01 19:30 | NUR ---
Patient received on bed lying comfortably and awake. Alert and oriented x4. No acute distress. Respirations even and unlabored.
[2023-01-01 19:34] LABS: BASOPHILS % (AUTO) 0.3 % (0.0-2.0); EOSINOPHILS # (AUTO) 0.1 K/uL (0-0.4); HEMATOCRIT 34.1 % (36-48); HEMOGLOBIN 10.9 g/dL (12.0-16.0); LYMPHOCYTES # (AUTO) 2.2 K/uL (2.5-16.5); LYMPHOCYTES % (AUTO) 24.6 % (20.5-51.1); MEAN CORPUSCULAR HEMOGLOBIN 29 pg (27-31); MEAN CORPUSCULAR HGB CONC 32 g/dL (33-37); MEAN CORPUSCULAR VOLUME 91.8 fL (80-94); MONOCYTES # (AUTO) 0.5 K/uL (0.8-1.0); MONOCYTES % (AUTO) 5.7 % (1.7-9.3); NEUTROPHILS # (AUTO) 6.1 K/uL (1.8-7.7); NEUTROPHILS % (AUTO) 68.4 % (42.2-75.2); PLATELET COUNT (AUTO) 178 K/uL (140-450); RED BLOOD CELL COUNT(AUTO) 3.72 MIL/uL (4.20-5.40); RED CELL DISTRIBUTION WIDTH 14.6 % (11.6-13.7); WHITE BLOOD COUNT (AUTO) 8.9 K/uL (4.8-10.8)
[2023-01-01 20:05] LABS: APPEARANCE,URINE CLEAR (CLEAR); BILIRUBIN,URINE NEGATIVE (NEGATIVE); BLOOD, URINE NEGATIVE (NEGATIVE); COLOR,URINE YELLOW (YELLOW); LEUKOCYTE ESTERASE ,URINE TRACE (NEGATIVE); NITRITE, URINE NEGATIVE (NEGATIVE); UGLUCOSE 1+ (NEGATIVE)
[2023-01-01 20:10] LABS: ANION GAP 14.2 (8-16); ASPARTATE AMINOTRANSFERASE 18 U/L (15-37); CARBON DIOXIDE 24.7 mmol/L (21-32); CHLORIDE 103 mmol/L (98-107); CREATININE 1.7 mg/dL (0.6-1.3); GFR ARICAN-AMERICAN 38 mL/min (>90); GLUCOSE 104 mg/dL (74-106); LIPASE 202 U/L (73-393); POTASSIUM 5.9 mmol/L (3.5-5.1); SODIUM SERUM 136 mmol/L (136-145); TOTAL BILIRUBIN 0.3 mg/dL (0.0-1.0); UREA NITROGEN, BLOOD 43 mg/dL (7-18)
[2023-01-01 20:28] LABS: RBC,URINE NONE SEEN /HPF (0-5); WBC,URINE 0-5 /HPF (0-5)
--- NOTE | 2023-01-01 20:35 | NUR ---
Patient was brought to CT scan via gurney by Radiologist.
--- NOTE | 2023-01-01 20:49 | NUR ---
Patient was transported back to bed [address] scan by Radiologist via gurney.
[2023-01-01] MEDS ORDERED: CALCIUM GLUCONATE 10% 1,000 MG in NACL 0.9% 50 ML IV ONE (22:10)
[2023-01-01] MEDS ORDERED: INSULIN REGULAR, HUMAN 100 UNIT/ML VIAL IVP ONE (22:10)
[2023-01-01] MEDS ORDERED: DEXTROSE 50% 50 ML SYR IVP ONE ×2 (22:10→23:58)
[2023-01-01] MEDS ORDERED: MAGNESIUM OXIDE 400 MG TAB PO PRN (23:15)
[2023-01-01] MEDS ORDERED: ZOLPIDEM 5 MG TAB PO PRN (23:15)
[2023-01-01] MEDS ORDERED: HYDROcodone/APAP 5/325 MG 1 TAB TAB PO PRN (23:15)
[2023-01-01] MEDS ORDERED: ACETAMINOPHEN 325 MG TAB PO PRN (23:15)
[2023-01-01] MEDS ORDERED: CALCIUM GLUC 1 GM/50 mL NS BAG 50 ML IV ONE (23:58)
[2023-01-02] MEDS: NACL 0.9% 1,000 ML IV SCH ×2 (00:14→12:52)
[2023-01-02] MEDS ORDERED: AMLO10TA PO (01:20)
[2023-01-02] MEDS ORDERED: CHLO25TA33 PO (01:20)
[2023-01-02] MEDS ORDERED: METF-1139 PO (01:20)
[2023-01-02] MEDS ORDERED: INSU100S22 SUBQ ×2 (01:20→01:21)
[2023-01-02] MEDS ORDERED: HYDR-1098 PO (01:20)
[2023-01-02] MEDS ORDERED: FERR325E14 PO (01:20)
[2023-01-02] MEDS ORDERED: LISI40TA12 PO (01:20)
[2023-01-02] MEDS ORDERED: SPIR100T4 PO (01:20)
[2023-01-02] MEDS ORDERED: INSU-1163 SQ (01:22)
[2023-01-02] MEDS ORDERED: HUM SUBQ (01:24)
--- NOTE | 2023-01-02 02:08 | NUR ---
Patient will be admitted to care of Dr. Foss. Admited to Telemetry. Will go to room 112 B. Belongings list completed. Report to IAN Guajardo.
--- NOTE | 2023-01-02 02:20 | NUR ---
RECEIVED PATIENT FROM ER NURSE FOR CONTINUITY OF CARE. PATIENT IS ALERT ORIENTED X4, [place]OREAN SPEAKING. PIV ON LEFT AC INTACT AND PATENT. NO DISTRESS NOTED
[2023-01-02 04:00] VITALS: BP 124/51
--- NOTE | 2023-01-02 07:05 | NUR ---
receive the patient from the shift boss rn in rm 112B aox4 with admitting diagnosis of acute kidney injury . will continue to monitor .
--- NOTE | 2023-01-02 07:08 | NUR ---
receive the patient from the secondary market manager rn in rm 124A with admitting diagnosis of acute kidney injury will continue to monitor the patient Addendum: 01/02/23 at 1852 by Agency 08 IAN SOSA wrong patient
[2023-01-02 07:37] LABS: BASOPHILS % (AUTO) 0.3 % (0.0-2.0); EOSINOPHILS # (AUTO) 0.1 K/uL (0-0.4); EOSINOPHILS % (AUTO) 1.3 % (0.0-4.0); HEMATOCRIT 33.1 % (36-48); HEMOGLOBIN 10.5 g/dL (12.0-16.0); LYMPHOCYTES # (AUTO) 2.3 K/uL (2.5-16.5); LYMPHOCYTES % (AUTO) 31.5 % (20.5-51.1); MEAN CORPUSCULAR HEMOGLOBIN 29 pg (27-31); MEAN CORPUSCULAR HGB CONC 32 g/dL (33-37); MEAN CORPUSCULAR VOLUME 92.1 fL (80-94); MONOCYTES # (AUTO) 0.7 K/uL (0.8-1.0); NEUTROPHILS # (AUTO) 4.3 K/uL (1.8-7.7); NEUTROPHILS % (AUTO) 57.9 % (42.2-75.2); PLATELET COUNT (AUTO) 167 K/uL (140-450); RED BLOOD CELL COUNT(AUTO) 3.59 MIL/uL (4.20-5.40); RED CELL DISTRIBUTION WIDTH 14.4 % (11.6-13.7); WHITE BLOOD COUNT (AUTO) 7.4 K/uL (4.8-10.8)
[2023-01-02 07:40] LABS: ANION GAP 10.5 (8-16); CARBON DIOXIDE 26.6 mmol/L (21-32); CREATININE 1.6 mg/dL (0.6-1.3); POTASSIUM 5.1 mmol/L (3.5-5.1)
[2023-01-02 08:00] VITALS: BP 128/62
[2023-01-02] MEDS ORDERED: DEXTROSE 50% 50 ML SYR IVP PRN (08:15)
--- NOTE | 2023-01-02 10:31 | NUR ---
PATIENT HAS BEEN SCREENED AND CATEGORIZED MODERATE NUTRITION RISK. PATIENT WILL BE SEEN WITHIN 3-5 DAYS OF ADMISSION. ZAID [address]
[2023-01-02 12:00] VITALS: BP 130/59
[2023-01-02] MEDS: BLOOD GLUCOSE MONITORING 1 DEV DEV FS SCH ×3 (12:52→20:43)
--- NOTE | 2023-01-02 15:59 | NUR ---
DC PLANNING ASSESSMENT COMPLETE PLEASE REFER TO ASSESSMENT FOR ADDITIONAL DETAILS ROBER REPORTS TENTATIVE DC PLAN IS FOR PT TO RETURN HOME WITH FAMILY PROVIDING TRANSPORTATION, WHEN MEDICALLY STABLE. Addendum: 01/02/23 at 1600 by Brea ASHRAF Amended: Links added.
[2023-01-02 16:00] VITALS: BP 132/55
--- NOTE | 2023-01-02 18:10 | NUR ---
talked to the relatives re: the [facility] depending on the approved insurance , quality of care the case consultant have also spoke with Suman Lane who the approve the transfer Addendum: 01/02/23 at 1853 by Agency 08 RN RN wrong patient
--- NOTE | 2023-01-02 18:34 | NUR ---
will endorse to bar machine operator production rn for continuity of care for possible discharge at 20:30pm Addendum: 01/02/23 at 1853 by Agency 08 RN RN wrong patient
--- NOTE | 2023-01-02 18:54 | NUR ---
will endorse to shift nurse manager rn for continuity of care
--- NOTE | 2023-01-02 19:43 | NUR ---
RECEIVED REPORT FROM DAY SHIFT NURSE FOR CONTINUITY OF CARE. PT IS AWAKE, ALERT AND ORIENTED X3. CURRENTLY ON ROOM AIR WITH NO APPARENT SIGNS OF DISTRESS NOTED. NO PAIN STATED AT THIS TIME. PT HAS IV SITE AT LEFT AC 20 GAUGE, RUNNING NS AT 80ML/HR. SKIN IS INTACT. SAFETY MEASURES IN PLACE, CALL LIGHT WITHIN REACH, WILL MONITOR FREQUENTLY THROUGHOUT SHIFT.
--- NOTE | 2023-01-02 20:00 | NUR ---
Patient's Plan of Care was discussed and reviewed with TERELL: CYNDI
[2023-01-02 22:13] VITALS: BP 148/48
[2023-01-03] VITALS: BP 153/51
[2023-01-03] MEDS: NACL 0.9% 1,000 ML IV SCH (00:15)
[2023-01-03 04:00] VITALS: BP 164/61
--- NOTE | 2023-01-03 04:30 | NUR ---
PT 0400 BP READING = 166/61, HR 74. DR CORONA WAS CONTACTED, WILL CONTINUE TO MONITOR.
[2023-01-03] MEDS: BLOOD GLUCOSE MONITORING 1 DEV DEV FS SCH ×3 (06:29→16:30)
--- NOTE | 2023-01-03 06:32 | NUR ---
PT STATED SHE WAS HAVING HEART PALPITATIONS, BUT NO PAIN. PT HR OF 73. PT EXPLAINED SHE FEELS THIS WAY WHEN HER BLOOD SUGAR IS LOW. MORNING BLOOD SUGAR CHECK = 109, NO COVERAGE NEEDED. WILL ENDORSE TO DAY SHIFT NURSE FOR CONTINUITY OF CARE.
--- NOTE | 2023-01-03 07:06 | NUR ---
receive the patient from the cnc machinist 2nd shift rn in rm 124B aox3-4 with admitting diagnosis of acute kidney injury . will continue to monitor
[2023-01-03 07:20] LABS: ANION GAP 13.6 (8-16); CARBON DIOXIDE 24.2 mmol/L (21-32); CREATININE 1.4 mg/dL (0.6-1.3); POTASSIUM 4.8 mmol/L (3.5-5.1)
[2023-01-03 07:28] LABS: BASOPHILS % (AUTO) 0.5 % (0.0-2.0); EOSINOPHILS # (AUTO) 0.1 K/uL (0-0.4); EOSINOPHILS % (AUTO) 2.1 % (0.0-4.0); HEMATOCRIT 31.8 % (36-48); HEMOGLOBIN 10.2 g/dL (12.0-16.0); LYMPHOCYTES # (AUTO) 2.4 K/uL (2.5-16.5); LYMPHOCYTES % (AUTO) 41.4 % (20.5-51.1); MEAN CORPUSCULAR HEMOGLOBIN 30 pg (27-31); MEAN CORPUSCULAR HGB CONC 32 g/dL (33-37); MEAN CORPUSCULAR VOLUME 92.2 fL (80-94); MONOCYTES # (AUTO) 0.4 K/uL (0.8-1.0); MONOCYTES % (AUTO) 7.8 % (1.7-9.3); NEUTROPHILS # (AUTO) 2.7 K/uL (1.8-7.7); NEUTROPHILS % (AUTO) 48.2 % (42.2-75.2); PLATELET COUNT (AUTO) 167 K/uL (140-450); RED BLOOD CELL COUNT(AUTO) 3.45 MIL/uL (4.20-5.40); RED CELL DISTRIBUTION WIDTH 14.6 % (11.6-13.7); WHITE BLOOD COUNT (AUTO) 5.7 K/uL (4.8-10.8)
[2023-01-03 08:00] VITALS: BP 123/73
[2023-01-03] MEDS ORDERED: amLODIPine 5 MG TAB PO SCH (09:00)
[2023-01-03 12:00] VITALS: BP 164/61
[2023-01-03 16:00] VITALS: BP 106/62
[2023-01-03 17:49] VITALS: BP 125/75
--- NOTE | 2023-01-03 18:46 | NUR ---
discharge the patient to home in a stable condition . no sign and symptoms of respiratory distress . no complain of pain . brought the patient thru a wheelchair to the lobby to a waiting private car
--- NOTE | 2023-01-08 10:30 | NUR ---
CALLED [facility] LOC[facility] AT [address] [phone]. SPOKE WITH LUCERO AND PT HAD ALREADY MADE APPOINTMENT FOTho 01/07/2023 AT 7670.
== END 2023-01-03 18:46 | disposition home or self-care (01) | DRG 422 ==
LOC: MED 17:12 → EEVIPCON 23:35 → MTU 23:35
PROVIDERS: ADMIT Internal Medicine; ATTEND Internal Medicine
DX: E86.1 Hypovolemia (principal); N17.9 Acute kidney failure, unspecified; E87.5 Hyperkalemia; I95.9 Hypotension, unspecified; E11.9 Type 2 diabetes mellitus without complications; Z20.822 Contact with and (suspected) exposure to COVID-19; I10 Essential (primary) hypertension; E78.00 Pure hypercholesterolemia, unspecified; Z90.49 Acquired absence of other specified parts of digestive tract; Z82.49 Family history of ischemic heart disease and other diseases of the circulatory system; Z79.82 Long term (current) use of aspirin; Z79.899 Other long term (current) drug therapy; Z79.4 Long term (current) use of insulin; Z56.0 Unemployment, unspecified
CPT/HCPCS: 36415; 71045; 76770; 80048; 80053; 81001; 82948; 83690; 84484; 85025; 87081; 93005; 96361; 96374; 96375; 99291; J0610; J1644; J1815; Q0092